=== PATIENT | female | born 1960 | race African-American/Black ===

== ENCOUNTER → 2023-05-30 17:12 | Outpatient (REF) | payer MEDICARE, BC, MEDICAID, SELFPAY | LOC: OLABN 17:12 | PROVIDERS: ATTENDING PHYSICIAN Student in an Organized Health Care Education/Training Program | DX: R52 Pain, unspecified (principal); R05.9 Cough, unspecified | CPT/HCPCS: 87502 ==

== ENCOUNTER 2023-11-25 19:12 | Inpatient (IN) | payer MEDICARE, MEDICAID, SELFPAY ==
[2023-11-25] VITALS (7 sets, daily range): BP systolic 100–130; BP diastolic 72–96
[2023-11-25 14:39] LABS: % Basophils 0.4 % (0-2); % Eosinophils 3.7 % (0-6); % Immature Granulocytes 0.3 % (0-0.5); % Lymphocytes 16.2 % (20.5-51.1); % Monocytes 9.7 % (1.7-9.3); % Neutrophils 69.7 % (42.2-75.2); Absolute Eosinophils 0.3 10^3/uL (0-0.7); Absolute Lymphocytes 1.1 10^3/uL (1.2-3.4); Absolute Monocytes 0.7 10^3/uL (0.1-0.6); Absolute Neutrophils 4.6 10^3/uL (1.4-6.5); Hematocrit 40.1 % (37.0-47.0); Hemoglobin 13.3 g/dL (12.0-16.0); Mean Corp Hgb Conc. 33.2 g/dL (33.0-37.0); Mean Corpuscular Hgb 25.3 pg (27.0-31.0); Mean Corpuscular Volume 76.2 fL (81.0-99.0); Mean Platelet Volume 10.6 fL (7.4-10.4); Nucleated Red Blood Cells % 0 %; Platelet Count 293 10^3/uL (130-400); Red Blood Cell Count 5.26 10^6/uL (4.20-5.40); Red Cell Dist. Width 15.2 % (11.5-14.5); White Blood Cell Count 6.7 10^3/uL (4.8-10.8)
[2023-11-25 14:55] LABS: Lactic Acid 1.4 mmol/L (0.7-2.0)
[2023-11-25 14:57] LABS: ALT (SGPT) 16 U/L (0-35); AST (SGOT) 24 U/L (14-36); Albumin 4.3 g/dl (3.5-5.0); Alkaline Phosphatase 92 U/L (38-126); Blood Urea Nitrogen 14 mg/dl (7-17); Calcium 9.6 mg/dl (8.4-10.2); Carbon Dioxide 24 mmol/L (22-30); Chloride 104 mmol/L (98-107); Glucose 125 mg/dl (70-99); Potassium 4.9 mmol/L (3.5-5.1); Sodium 135 mmol/L (135-145); Total Bilirubin 0.4 mg/dl (0.2-1.3); Total Protein 7.8 g/dl (6.3-8.2); eGFR > 60.00
--- NOTE | 2023-11-25 15:15 | ED.GENMED ---
History of Present Illness
General
Chief Complaint: Change in Mental Status
Source: family
Time Seen by Provider: 11/25/23 15:07
History of Present Illness
History of Present Illness:
63-year-old female presents to the emergency room from [facility]. Patient was noted to have a fever. Family is noted a significant cough for the past week. She has required oxygen at the facility. She is typically not on any
oxygen. Pulse ox noted to be 89% on arrival here. Patient is unable to provide any history. She has multiple sclerosis which is rendered her quadriplegic.
Past History
Past History
ED Past Medical History: Other (Multiple sclerosis, asthma, dysphagia, neurogenic bladder, hearing difficulties, glaucoma)
Social History
Tobacco: Non-smoker
Phy Exam
Physical Exam
Physical Exam:
General: Awake, alert, chronically ill-appearing
Vitals: Febrile, tachycardic
Head: Atraumatic
Eyes: Pupils equal, EOMI
Throat: Airway intact, no exudates
Neck: Trachea midline
Lungs: Rhonchi bilaterally
Heart: Regular rate, no murmurs
Abd: Soft, Nontender, No pulsatile mass
Neuro: Contractures bilateral upper and lower extremities
Skin: Warm, dry, no rash
Extremities: pulses equal b/l, 1+ edema
Course
Orders/Labs/Results
Orders:
Orders
11/25/23 14:17
EKG [Electrocardiogram (*1)] Urgent
Reason for Study: Chest Pain
11/25/23 14:19
EKG- Treatment ONCE
Chest X-ray Portable [CR Chest Portable - 1 View] Urgent
Comment:
Reason For Exam: respiratory
Reason Study Needs to be Portable: Patient Unstable
11/25/23 14:22
Complete Blood Count/With Diff Urgent
Comprehensive Metabolic Panel Urgent
Lactate Level [Lactic Acid] Urgent
11/25/23 15:15
Acetaminophen [Tylenol/Feverall] 650 mg RECTAL NOW STA
11/25/23 15:17
Straight cath- Treatment ONCE
11/25/23 16:17
COVID-19 Antigen Urgent
Source: Nasal Swab
Urinalysis Reflex To Culture Urgent
Date Specimen was Collected: 11/25/23
Time Specimen was Collected: 15:26
Urine Microscopic Reflex Cult Urgent
Urine Culture Urgent
IRENE Source: U
Specimen Description:
Date Specimen was Collected: 11/25/23
Time Specimen was Collected: 15:26
11/25/23 17:45
Dexamethasone Sod Phosphate [Decadron] 6 mg IV NOW STA
11/25/23 18:37
Admit/Transfer Patient As Directed
Co-Sign Provider:
Level of Care: Inpatient admission
Assign to:: Telemetry
Physician / Group: Dr. blair
Diagnosis: COVID-19 infection with hypoxia
Reason for Telemetry: Other
Other Reason for Telemetry: Tachycardia
Date to Stop Telemetry: 11/27/23
Time to Stop Telemetry: 11:00
Reason for Hospitalization: COVID-19 infection with hypoxia
Expected length of stay greater than two midnights?: Yes
ELOS- Estimated Length of Stay in days: 3
I certify the patient meets the requirements for IP care: Yes
PRN Pain Medication Management As Directed
May give lesser potent ordered pain med per pt: Yes
preference::
Protocol:: Medication orders for pain may be administered in a
manner that supports deferring to patient preference
when the pt is:
- Requesting an ordered lesser potent pain medication.
Least to most potent pain medications are defined
as: acetaminophen < NSAID < tramadol < opioids
(morphine, oxycodone, hydromorphone).
- Requesting a lesser dose of the same medication IF
ORDERED.
- Requesting a less intrusive route of administration
if both routes are prescribed by the provider (PO <
IV).
11/25/23 18:39
Code Status As Directed
Resuscitation Status: Full Code
11/27/23 11:00
DC Protocol for Telemetry ONCE
Abnormal Lab Results
11/25/23 11/25/23
14:22 16:17
MCV 76.2 L fL
(81.0-99.0)
MCH 25.3 L pg
(27.0-31.0)
RDW 15.2 H %
(11.5-14.5)
MPV 10.6 H fL
(7.4-10.4)
Absolute Lymphs (auto) 1.1 L 10^3/uL
(1.2-3.4)
Absolute Monos (auto) 0.7 H 10^3/uL
(0.1-0.6)
Lymphocytes % 16.2 L %
(20.5-51.1)
Monocytes % 9.7 H %
(1.7-9.3)
Glucose 125 H mg/dl
(70-99)
Leukocyte Esterase Rfl Trace A
(Negative)
Urine RBC 3-6 A /HPF
(0-2)
Urine WBC (Reflex) 11-15 A /HPF
(0-5)
Urine Bacteria (Reflex) Few A
(Negative)
SARS-CoV-2 Antigen Positive A
(Negative)
11/25/23 14:22
11/25/23 14:22
Vital Signs
Initial and Last Documented VS:
Initial Vital Signs
Temp Pulse Resp BP Pulse Ox
101.1 F H 117 19 124/88 93
11/25/23 14:15 11/25/23 14:15 11/25/23 14:15 11/25/23 14:15 11/25/23 14:15
Last Documented Vital Signs
Temp Pulse Resp BP Pulse Ox
101.0 F H 100 16 108/72 93
11/25/23 19:17 11/25/23 20:30 11/25/23 20:30 11/25/23 20:30 11/25/23 20:30
MDM/Problems Addressed
Differential Diagnosis Includes:
pneumonia (aspiration or community aquired), covid, uti
MDM/Problems Addressed:
Patient presents with fever, hypoxia. Chest x-ray does not show any acute infiltrate. COVID test is positive. Patient was found to be febrile on arrival for which was given Tylenol. Fluid bolus was provided. Nasal cannula oxygen was provided.
Patient's labs show a normal white count, adequate hemoglobin. Chemistries are all unremarkable. Urinalysis has 11-15 white blood spill per high-power field however chemistries show only trace leukocyte esterase and negative nitrates. Not clear
that this is a true infection. I would prefer to wait on the culture before treating this given we have a reasonable explanation for her fever with her positive COVID test.
*Radiology
Radiology exam reviewed: preliminary read by ED provider (Personally viewed the patient's chest x-ray and see no acute infiltrate) and radiology read reviewed
*Pulse Oximetry
Patient hypoxic: yes
*EKG
Interpreted by ED Provider?: Yes
Interpretation: abnormal
Heart Rate: 118
Rate: tachycardiac
Rhythm: sinus tachycardia
Interval: normal interval
QRS Pattern: normal QRS
*Heating Element Builder Interpretation
Rate: tachycardiac
Interpretation: abnormal
Heart Rate: 118
Rhythm: sinus tachycardia
*Critical Care Note
Total Time (30-74mins, 75-104mins- exclusive of procedures): Not Applicable
ED Attending Note
-
Portions of this chart may have been created with voice recognition software.� Occasional wrong word or��sound alike� substitutions may have occurred due to the inherent limitations of voice recognition software.
Discharge Plan
Departure
Patient Disposition: Admit
Date of Disposition: 11/25/23
Time of Disposition: 17:47
Presentation/result/management discussed w/ accepting MD/DO: Hospitalist
Condition: Fair
Discharge Problem:
COVID-19, Hypoxia
Interventions
Interventions:
*Risk Screen - Suicide Last Done: 11/25/23 13:57
*General Assessment Last Done: 11/25/23 13:57
*Neglect/Abuse Screening Last Done: 11/25/23 13:57
ED- Fall Risk Assessment Last Done: 11/25/23 13:57
*ED COVID-19 Vaccine History Last Done: 11/25/23 13:57
ED- Neurological Assessment Last Done: 11/25/23 13:57
ED- Cardiac Assessment Last Done: 11/25/23 13:57
ED Swallowing Screen Last Done: 11/25/23 13:57
[2023-11-25] MEDS: TYLENOL/FEVERALL 650 MG RECTAL ×2 (15:35→20:06)
[2023-11-25 16:41] LABS: COVID-19 Antigen Positive (Negative)
[2023-11-25 17:12] LABS: Urine Albumin Negative (Neg - Trace); Urine Bilirubin Negative (Negative); Urine Character Clear (Clear); Urine Color Yellow; Urine Glucose Negative (Negative); Urine Ketone Negative (Negative); Urine Leukocyte Trace (Negative); Urine Nitrite Negative (Negative); Urine Occult Blood Negative (Negative); Urine Urobilinogen Negative (Neg - 1+)
[2023-11-25 17:37] LABS: Urine Squamous Cell 0-2 /LPF (Few)
[2023-11-25 17:38] LABS: Urine Bacteria Few (Negative)
--- NOTE | 2023-11-25 18:48 | HPS.HSE ---
Family Physician
-
Family Physician: NO INTERVIEW UNKNOWN
Chief Complaint
-
cough, fever, hypoxia
History of Present Illness
Patient is a 63y f with past history of multiple sclerosis living in [facility] who was brought to the ED with decreased spO2 levels (89%), cough and fever for the past few days. Patient is not on oxygen at retirement. In the
ER, spO2 id 92-93% on 2L oxygen. CXR demonstrates no evidence of cardiopulmonary abnormality. Patient is SARS-Cov-2 positive.No abdominal pain, chest pain, change in mental status noted in ER.
Medical History
Past Medical History
Past Medical History: Reports Asthma and Other (Multiple sclerosis, neurogenic bladder, dysphagia, glaucoma, hearing difficulties)
Past Surgical History: Reports None
Social History
Tobacco: Non-smoker
Living: Assisted
Family History
Family History: Not pertinent
Allergies / Home Medications
Allergies reflects when Allergies were last updated in MyCheck.
Home Medications with original date entered in MyCheck
Allergy/Medication List:
Allergies
Allergy/AdvReac Type Severity Reaction Status Date / Time
Penicillins Allergy Hives Verified 04/19/22 13:54
zolpidem [From Ambien] Allergy Unknown Verified 04/19/22 13:54
Home Medications
acetaminophen 325 mg tablet (Tylenol) 650 mg PO Q4HPRN PRN mild pain,fever>100.4 04/19/22
baclofen 10 mg tablet 20 mg PO TID Muscle spasms 04/19/22
bisacodyl 10 mg rectal suppository 10 mg [place] DAILYPRN PRN 3 days no bm, mom ineffective 04/19/22
cholecalciferol (vitamin D3) 1,250 mcg (50,000 unit) capsule 1,250 mcg PO QMONTH Supplement 04/19/22
dorzolamide 22.3 mg-timolol 6.8 mg/mL eye drops 1 drp BOTH EYES BID Eye condition 04/19/22
latanoprost 0.005 % eye drops 1 drp BOTH EYES HS Eye condition 04/19/22
magnesium hydroxide 400 mg/5 mL oral suspension (Milk of Magnesia) 30 ml PO HSPRN PRN constipation 04/19/22
montelukast 10 mg tablet 10 mg PO HS Allergies 04/19/22
apixaban 5 mg tablet (Eliquis) 5 mg PO BID 11/25/23
ipratropium 0.5 mg-albuterol 3 mg (2.5 mg base)/3 mL nebulization soln 3 ml inhalation R Q6HPRN PRN cough/wheezing 11/25/23
pantoprazole 20 mg tablet,delayed release 20 mg PO DAILY 11/25/23
Review of Systems
-
History Source: Family
Constitutional: Reports Fever
EENT: Reports No Symptoms
Respiratory: Reports Cough
Cardiac: Reports No Symptoms
Abdomen/GI: Reports No Symptoms
: Reports No Symptoms
Musculoskeletal: Reports Other (quadriplegic)
Skin: Reports No Symptoms
Neurological: Reports No Symptoms
Endocrine: Reports No Symptoms
Hematologic/Lymphatic: Reports No Symptoms
Psych: Reports No Symptoms
Physical Exam
Vital Signs
Vital Signs
Temp Pulse Resp BP Pulse Ox
101.1 F H 117 19 124/88 93
11/25/23 14:15 11/25/23 14:15 11/25/23 14:15 11/25/23 14:15 11/25/23 14:15
Physical Exam
General: Well Developed, Well Nourished and No Apparent Distress
Respiratory: Clear
Cardiac: S1/S2 and Regular Rhythm
GI: Soft, Non Tender and Non Distended
Musculoskeletal: No Clubbing
Neuro: Awake, Alert and Oriented
Laboratory Results
-
11/25/23 14:22
11/25/23 14:22
Laboratory Results
Lactic Acid 1.4 mmol/L (0.7-2.0) 11/25/23 14:22
Total Bilirubin 0.4 mg/dl (0.2-1.3) 11/25/23 14:22
AST 24 U/L (14-36) 11/25/23 14:22
ALT 16 U/L (0-35) 11/25/23 14:22
Alkaline Phosphatase 92 U/L (38-126) 11/25/23 14:22
Impression/Plan
-
IMPRESSION: 63 y f with MS living in a retirement with COVID-19 infection and hypoxia.
PLAN:
COVID-19 infection with acute hypoxemic respiratory insufficiency
- Oxygen therapy, spO2=92-93% on 2L oxygen
- Start Dexamethasone IV
- NPO
- IVF, NS 100 ml/hr
Cough
- Start Guaifenesin/dextromethorphan
Tachycardia
- Monitor pulse rates
- Telemetry
Multiple sclerosis
- Continue baclofen
Quadriplegia
- Bed sore precautions
Full code
DVT prophylaxis eliquis
--- NOTE | 2023-11-25 18:51 | W.PN.UPDATE ---
Update Note
Progress Note Update
Seen and examined by me independently in collaboration with the chief medical officer Marlen.
Lab data and imaging data reviewed.
Addendum as below :
63-year-old lady with advanced multiple sclerosis with functional quadriplegia currently in a local half-way setting sent in because of fever, cough and hypoxia.
Patient's son at bedside who also provides history. Family had noted congestive cough for a week now. Apparently there is COVID going on in the facility.
Patient with dependent in ADLs and also on modified diet. She understands things follows commands but cannot verbalize much.
Today with fever and cough and hypoxia was sent to the hospital for further evaluation.
Patient has audible cough but no respiratory distress. She is requiring 2 L of oxygen. Tachycardia noted but blood pressure stable.
Chest anteriorly rhonchorous breathing.
Heart sound S1 plus S2 heard regular
Abdomen benign.
Functional quadriplegia evident.
Chest x-ray without any pneumonia.
No white count and creatinine normal.
Moderate COVID-19 infection with hypoxia but no pneumonia. Not septic by criteria. Admit to hospital, started on steroids. Hold on remdesivir until there is any evidence of progression of hypoxia or symptoms.
Advanced multiple sclerosis with functional quadriplegia and dysphagia-with a congestive cough hold oral diet. Keep n.p.o. except for meds. Obtain speech eval.
Patient on anticoagulation with Eliquis-in sinus rhythm and no history of A-fib based on the prior records. Unclear if there is any evidence of thromboembolism. Will continue Eliquis for now and obtain all information.
Discussed with the son at bedside. Full code.
[2023-11-25] MEDS: DECADRON 6 MG IV (19:09)
[2023-11-25 21:48] LABS: Procalcitonin < 0.05 ng/ml (0.0-0.25)
[2023-11-25] MEDS: NSS 1000 IV (21:55)
[2023-11-25] MEDS: XALATAN OPHTHALMIC SOLUTION 1 DROP BOTH EYES (21:59)
[2023-11-25] MEDS: COSOPT EYE DROPS 1 DROP BOTH EYES (21:59)
[2023-11-25] MEDS: LIORESAL 20 MG PO (22:00)
[2023-11-25] MEDS: ELIQUIS 5 MG PO (22:00)
--- NOTE | 2023-11-25 22:00 | PTCARENOTE ---
Received patient from ED. Patient transferred directly to bed from stretcher. Patient assessed and oriented to the unit. VSS. IVF infusing. Patient positioned for comfort.
[2023-11-25] MEDS: SINGULAIR 10 MG PO (22:02)
[2023-11-26] VITALS (7 sets, daily range): BP systolic 95–130; BP diastolic 60–83
[2023-11-26] MEDS: PROTONIX 20 MG PO (08:43)
[2023-11-26] MEDS: DECADRON 6 MG IV (08:43)
[2023-11-26] MEDS: LIORESAL 20 MG PO ×3 (08:43→21:44)
[2023-11-26] MEDS: ELIQUIS 5 MG PO ×2 (08:43→20:27)
[2023-11-26] MEDS: COSOPT EYE DROPS 1 DROP BOTH EYES ×2 (08:44→20:34)
[2023-11-26] MEDS: NSS 1000 IV ×2 (08:45→15:38)
--- NOTE | 2023-11-26 09:53 | W.PN.UPDATE ---
Update Note
Progress Note Update
Seen and examined by me independently in collaboration with the medical assistant Marlen.
Lab data and imaging data reviewed.
Addendum as below :
Patient is much more alert and conversive.
She is oriented to place and person. She says she is not short of breath nor having any chest pain.
Cough is improved. She is requesting oral diet.
Today improved fever curve and in fact afebrile this morning. She is off of oxygen.
Chest clear anteriorly
Abdomen benign.
acute COVID infection with cough with productive phlegm and transient hypoxia. No evidence of pneumonia. Fevers resolved. Hypoxia resolved. Continue with steroids for today as well and if continued improvement consider discontinuing them. No
indication for remdesivir.
Multiple sclerosis with functional paraplegia and dysphagia-await speech eval so she could be started back on diet.
If remains improved from COVID-19 infection today we will discharge her back to her long-term care facility tomorrow.
Reviewed old chart - not finding clear cut indication for Eliquis. Will touch base with family.
DW RN
Total time spent on today's encounter was 52 minutes which included time spent in counseling the patient/family regarding diagnosis and treatment plan as listed above, goals of care, and symptom management. Case was discussed with nursing staff.
All labs and imaging personally reviewed by me. Remainder the time spent in detailed review of previous records, lab data, imaging, and other medical provider documentation.
--- NOTE | 2023-11-26 10:46 | W.PN.HOSP.TC ---
Today's Communication/Plan
-
Continue Dexamethasone
Monitor SpO2
Assessment / Plan
Assessment / Plan
IMPRESSION: 63-year-old female with history of multiple sclerosis living in a long-term facility presenting to the ER with COVID-19 infection and hypoxia. Not febrile.
PLAN:
COVID-19 infection with acute hypoxemic respiratory insufficiency
-Continue IV steroid
-Off oxygen, SpO2 is 96% on room air.
Cough
� Continue guaifenesin/dextromethorphan
Tachycardia
�Now resolved
-Monitor heart rate
Multiple sclerosis
-Baclofen
Full code
DVT prophylaxis Eliquis
Anticipated Discharge: 24 - 48 hours
Subjective/Interval History
-
Date of Service: November 26, 2023
Objective Data
-
Labs:
Laboratory Results
11/26/23
06:00
WBC Pending
Hgb Pending
Hct Pending
Plt Count Pending
Sodium Pending
Potassium Pending
Chloride Pending
Carbon Dioxide Pending
BUN Pending
Creatinine Pending
Glucose Pending
Calcium Pending
Total Bilirubin Pending
AST Pending
ALT Pending
Alkaline Phosphatase Pending
Vital Signs:
Vital Signs
Temp Pulse Resp BP Pulse Ox
97.7 F 69 16 124/73 96
11/26/23 07:25 11/26/23 07:25 11/26/23 07:25 11/26/23 07:25 11/26/23 07:25
I&O
11/25/23 11/26/23 11/27/23
06:59 06:59 06:59
Intake Total 720 / 720
Balance 720 / 720
Review of Systems
-
History Source: Family
Constitutional: Reports No Symptoms
EENT: Reports No Symptoms Reported
Respiratory: Reports Cough (Improved compared to yesterday)
Cardiac: Reports No Symptoms
Abdomen/GI: Reports No Symptoms
Genitourinary: Reports No Symptoms
Musculoskeletal: Reports Other (Quadriplegic)
Skin: Reports No Symptoms
Neuro: Reports No Symptoms
Endocrine: Reports No Symptoms
Physical Exam
-
General: Well Developed, Well Nourished and No Apparent Distress
Respiratory: Clear to Auscultation
Cardiac: Regular Rhythm and S1/S2
GI: Soft, Nontender and Nondistended
Genito-urinary: No Costovertebral Tender
Musculoskeletal: No Clubbing
Neuro: Awake, Alert and Oriented
Psych: Calm
--- NOTE | 2023-11-26 14:18 | PTOTSP ---
Speech therapy
Presentation: Patient was partially oriented and willing to participate.
Swallowing Function: Per patient's son, patient has been tolerating puree solids and nectar thick liquids. Patient was observed with several sips of mildly thick liquids via straw and bites of puree solids in which patient appeared to tolerate as
she did not exhibit any overt clinical s/sx of aspiration.
Recommendations:
1) IDDSI level 4; puree solids and mildly thick liquids
2) Aspiration precautions
3) FULL assistance and supervision with PO
4) Medications as tolerated
Plan: FINANCE INTERN will continue to follow; pending hospitalization.
[2023-11-26 15:11] LABS: % Immature Granulocytes 0.8 % (0-0.5); % Lymphocytes 28.1 % (20.5-51.1); % Monocytes 2.1 % (1.7-9.3); Absolute Lymphocytes 1.1 10^3/uL (1.2-3.4); Absolute Monocytes 0.1 10^3/uL (0.1-0.6); Absolute Neutrophils 2.7 10^3/uL (1.4-6.5); Hematocrit 35.4 % (37.0-47.0); Hemoglobin 11.9 g/dL (12.0-16.0); Mean Corp Hgb Conc. 33.6 g/dL (33.0-37.0); Mean Corpuscular Hgb 25.5 pg (27.0-31.0); Mean Corpuscular Volume 75.8 fL (81.0-99.0); Mean Platelet Volume 10.4 fL (7.4-10.4); Nucleated Red Blood Cells % 0 %; Platelet Count 278 10^3/uL (130-400); Red Blood Cell Count 4.67 10^6/uL (4.20-5.40); Red Cell Dist. Width 15.2 % (11.5-14.5); White Blood Cell Count 3.9 10^3/uL (4.8-10.8)
[2023-11-26 15:15] LABS: ALT (SGPT) 14 U/L (0-35); AST (SGOT) 20 U/L (14-36); Albumin 3.8 g/dl (3.5-5.0); Alkaline Phosphatase 82 U/L (38-126); Blood Urea Nitrogen 15 mg/dl (7-17); Calcium 9.4 mg/dl (8.4-10.2); Carbon Dioxide 21 mmol/L (22-30); Chloride 108 mmol/L (98-107); Glucose 175 mg/dl (70-99); Magnesium 1.9 mg/dl (1.6-2.3); Potassium 4.2 mmol/L (3.5-5.1); Sodium 136 mmol/L (135-145); Total Bilirubin 0.2 mg/dl (0.2-1.3); eGFR > 60.00
[2023-11-26] MEDS: SINGULAIR 10 MG PO (21:44)
[2023-11-26] MEDS: XALATAN OPHTHALMIC SOLUTION 1 DROP BOTH EYES (21:45)
[2023-11-27] MEDS: NSS 1000 IV (02:25)
[2023-11-27 03:24] VITALS: BP 139/90
[2023-11-27 07:25] VITALS: BP 140/86
[2023-11-27 09:05] LABS: % Immature Granulocytes 0.3 % (0-0.5); % Lymphocytes 34.6 % (20.5-51.1); % Neutrophils 56.1 % (42.2-75.2); Absolute Lymphocytes 2.2 10^3/uL (1.2-3.4); Absolute Monocytes 0.6 10^3/uL (0.1-0.6); Absolute Neutrophils 3.6 10^3/uL (1.4-6.5); Hematocrit 33.4 % (37.0-47.0); Hemoglobin 11.2 g/dL (12.0-16.0); Mean Corp Hgb Conc. 33.5 g/dL (33.0-37.0); Mean Corpuscular Hgb 25.5 pg (27.0-31.0); Mean Corpuscular Volume 75.9 fL (81.0-99.0); Mean Platelet Volume 9.9 fL (7.4-10.4); Nucleated Red Blood Cells % 0 %; Platelet Count 242 10^3/uL (130-400); Red Cell Dist. Width 15.4 % (11.5-14.5); White Blood Cell Count 6.5 10^3/uL (4.8-10.8)
[2023-11-27 09:12] LABS: Blood Urea Nitrogen 14 mg/dl (7-17); Carbon Dioxide 24 mmol/L (22-30); Chloride 111 mmol/L (98-107); Glucose 95 mg/dl (70-99); Potassium 3.7 mmol/L (3.5-5.1); Sodium 138 mmol/L (135-145); eGFR > 60.00
[2023-11-27] MEDS: ELIQUIS 5 MG PO (10:01)
[2023-11-27] MEDS: LIORESAL 20 MG PO (10:01)
[2023-11-27] MEDS: DECADRON 6 MG IV (10:01)
[2023-11-27] MEDS: PROTONIX 20 MG PO (10:01)
[2023-11-27] MEDS: COSOPT EYE DROPS BOTH EYES (10:20)
--- NOTE | 2023-11-27 10:27 | W.PN.HOSP.TC ---
Today's Communication/Plan
-
Stable for discharge to [facility]
Hold dexamethasone -no pneumonia, patient off oxygen with SpO2 98% on room air
Continue home meds
Assessment / Plan
Assessment / Plan
IMPRESSION: 63-year-old female with history of multiple sclerosis living in a [facility] presenting to the ER with COVID-19 infection and hypoxia. Not febrile. Patient stable for discharge to [facility].
PLAN:
COVID-19 infection with acute hypoxemic respiratory insufficiency
-Continue IV steroid
-Off oxygen, SpO2 is 98% on room air.
Urinary tract infection
-U/C- strep, not Enterococcus
-Asymptomatic bacteriuria, antibiotics not indicated
Cough
�Continue guaifenesin/dextromethorphan
-Now resolved
Tachycardia
�Now resolved
-Monitor heart rate
Multiple sclerosis
-Baclofen
Full code
DVT prophylaxis Eliquis
Anticipated Discharge: Today
Subjective/Interval History
-
Date of Service: November 27, 2023
Objective Data
-
Labs:
Laboratory Results
11/27/23
08:51
WBC 6.5
Hgb 11.2 L
Hct 33.4 L
Plt Count 242
Sodium 138
Potassium 3.7
Chloride 111 H
Carbon Dioxide 24
BUN 14
Creatinine 0.6
Glucose 95
Calcium 9.0
Vital Signs:
Vital Signs
Temp Pulse Resp BP Pulse Ox
97.5 F 68 18 140/86 96
11/27/23 07:25 11/27/23 07:25 11/27/23 07:25 11/27/23 07:25 11/27/23 07:25
I&O
11/26/23 11/27/23 11/28/23
06:59 06:59 06:59
Intake Total 720 / 720 2640 / 2640
Balance 720 / 720 2640 / 2640
Review of Systems
-
History Source: Family
Constitutional: Reports No Symptoms
EENT: Reports No Symptoms Reported
Respiratory: Reports Cough (Improved compared to yesterday)
Cardiac: Reports No Symptoms
Abdomen/GI: Reports No Symptoms
Genitourinary: Reports No Symptoms
Musculoskeletal: Reports Other (Quadriplegic)
Skin: Reports No Symptoms
Neuro: Reports No Symptoms
Endocrine: Reports No Symptoms
Physical Exam
-
General: Well Developed, Well Nourished and No Apparent Distress
Respiratory: Clear to Auscultation
Cardiac: Regular Rhythm and S1/S2
GI: Soft, Nontender and Nondistended
Genito-urinary: No Costovertebral Tender
Musculoskeletal: No Clubbing
Neuro: Awake, Alert and Oriented
Psych: Calm
[2023-11-27 11:05] VITALS: BP 153/82
--- NOTE | 2023-11-27 11:21 | W.DCSUMMARY ---
Discharge Summary
Discharge Data
Date of Admission: 11/25/23
Date of Discharge: 11/27/23
Total time spent discharging patient (in min): 32
-
Pending Results: No
Hospital Course
Primary diagnosis:
COVID-19 infection
Acute hypoxemic respiratory insufficiency
Tachycardia
Second diagnosis:
Multiple sclerosis
Functional quadriplegia
63-year-old female with past history of multiple sclerosis rendering quadriplegia living in [facility] who was brought to the ER with cough, fever, hypoxia (SpO2 89% on room). COVID-positive. Was initially febrile, tachycardic,
hypoxemic but did not meet criteria for sepsis in the ER. Started on 2 L of oxygen SpO2 increased to 93% and oxygen was weaned off the following day. Now SpO2 level is 98% on room air. Chest x-ray was negative for pneumonia. IV dexamethasone was
administered for 2 days. Given patient's hemodynamic stability and no signs of severe COVID, held steroids. Patient was on Eliquis prior to admission (indication unclear according to her documents).
Patient is medically stable to be discharged to nursing facility with home meds. No change in home meds were made.
Discharge Plan
-
Patient Disposition: Intermediate/SNF
Discharge Diagnosis/Procedures: COVID infection with acute hypoxemic respiratory insufficiency; no pneumonia. multiple sclerosis
Condition: Fair
Diet: As tolerated
Additional Diets: IDDSI4 and pureed
Activity: As tolerated
Driving Restrictions: No driving
Bathing Restrictions: None
Referrals:
UNKNOWN,NO INTERVIEW [Family Provider] -
Prescriptions:
Continued
latanoprost 0.005 % Drops
1 drp BOTH EYES HS
acetaminophen [Tylenol] 325 mg Tablet
650 mg PO Q4HPRN MDD 3000 mg PRN (Reason: mild pain,fever>100.4)
magnesium hydroxide [Milk of Magnesia] 400 mg/5 mL Suspension
30 ml PO HSPRN PRN (Reason: constipation)
baclofen 10 mg Tablet
20 mg PO TID
bisacodyl 10 mg Suppository
10 mg [place] DAILYPRN PRN (Reason: 3 days no bm, mom ineffective)
dorzolamide-timolol 22.3-6.8 mg/mL Drops
1 drp BOTH EYES BID
montelukast 10 mg Tablet
10 mg PO HS
cholecalciferol (vitamin D3) 1,250 mcg (50,000 unit) capsule
1,250 mcg PO QMONTH
Rx Instructions:
on tuesday of the month
ipratropium-albuterol 0.5 mg-3 mg(2.5 mg base)/3 mL Solution For Nebulization
3 ml INHALATION R Q6HPRN PRN (Reason: cough/wheezing)
pantoprazole 20 mg Tablet,Delayed Release (Dr/Ec)
20 mg PO DAILY
Eliquis 5 mg Tablet
5 mg PO BID
Discharge Orders:
Discharge Patient (As Directed); Ordered 11/27/23
Ordered By: Marlen Simmons
Discharge Date and Time
Print Language: BRITISH
--- NOTE | 2023-11-27 12:56 | W.PN.UPDATE ---
Update Note
Progress Note Update
Seen and examined by me independently in collaboration with the medical coding manager.
Lab data data reviewed.
Addendum as below :
Patient is alert and oriented and communicative.
Voicing no specific complaints.
Denies any sore throat. Improved cough. Denies shortness of breath. Off of oxygen.
Denies any nausea or vomiting. Does not like the food here. Patient restarted on modified diet after seen by speech therapist.
Denies any dysuria frequency of urine.
Afebrile. Hemodynamically stable. Remains off of oxygen.
Chest anteriorly clear. Abdomen benign.
Lab data noted. Urine culture shows pyuria and nonsignificant bacteriuria. Patient also has no symptoms of dysuria or frequency of urine. Suspect contamination rather than true UTI. Hold on antibiotics.
Improved clinically from COVID-19 infection with resolution of fever and hypoxia. Hold further steroid treatments. Continue with supportive care and her usual medication. Continue with modified diet.
Left message to her son about discharge and left a call back number.
Total time of dc 35 min
--- NOTE | 2023-11-27 13:11 | CM ---
CM reviewed pt with resident/ Dr. Simmons- ready for dc
Call with [facility] nursing truong/Russell [phone]
Pt is a LTC resident, total care, bedbound quadriplegic
Pt COVID+ and accepted back for readmission today
SNF pharmacy added to chart [facility]
Transport form completed
[facility] arranged 1530 pick up operator
CM attempted to call pt in room
No answer- nursing will provide dc update and alert CM if pt would like CM to notify son of dc
Discharge Disposition- return [facility] LT care/[facility] 1530 pick
Phone- [phone] Fax- [phone]
Please include COVID results with dc paperwork
[2023-11-27 15:32] VITALS: BP 105/76
[2023-11-29 16:30] LABS: IL-6 (Interleukin-6) <2.0 pg/mL (<=2.0)
== END 2023-11-27 17:06 | DRG 177 ==
LOC: 2 NORTH 19:12
PROVIDERS: Emergency Medicine; ADMITTING PHYSICIAN Internal Medicine; EMERGENCY PHYSICIAN Emergency Medicine
DX: U07.1 COVID-19 (principal); R53.2 Functional quadriplegia; R41.82 Altered mental status, unspecified; R50.9 Fever, unspecified; G35 Multiple sclerosis; H40.9 Unspecified glaucoma; N31.9 Neuromuscular dysfunction of bladder, unspecified; R13.10 Dysphagia, unspecified; J45.909 Unspecified asthma, uncomplicated; R09.02 Hypoxemia; R06.89 Other abnormalities of breathing; R00.0 Tachycardia, unspecified; Z88.0 Allergy status to penicillin; Z88.8 Allergy status to other drugs, medicaments and biological substances; Z79.01 Long term (current) use of anticoagulants
CPT/HCPCS: 71045; 80048; 80053; 81003; 81015; 83529; 83605; 83735; 84145; 85025; 86140; 87070; 87086; 87811; 92610; 93005; 96374; 99285

== ENCOUNTER 2024-01-06 17:54 | Inpatient (IN) | payer MEDICARE, OTHER, SELFPAY ==
[2024-01-06] VITALS (9 sets, daily range): BP systolic 96–151; BP diastolic 62–114; BMI 28.7
--- NOTE | 2024-01-06 14:05 | EDRN ---
IV team contacted and will be down to attempt access and blood draw.
Blankets placed on b/l arms to warm limbs.
[2024-01-06 14:39] LABS: Hematocrit 35.9 % (37.0-47.0); Hemoglobin 11.7 g/dL (12.0-16.0); Mean Corp Hgb Conc. 32.6 g/dL (33.0-37.0); Mean Corpuscular Hgb 24.9 pg (27.0-31.0); Mean Corpuscular Volume 76.5 fL (81.0-99.0); Mean Platelet Volume 9.9 fL (7.4-10.4); Platelet Count 278 10^3/uL (130-400); Red Blood Cell Count 4.69 10^6/uL (4.20-5.40); Red Cell Dist. Width 15.9 % (11.5-14.5); White Blood Cell Count 6.5 10^3/uL (4.8-10.8)
[2024-01-06 14:51] LABS: % Basophils 0.5 % (0-2); % Eosinophils 8.4 % (0-6); % Immature Granulocytes 0.3 % (0-0.5); % Lymphocytes 52.1 % (20.5-51.1); % Monocytes 7.1 % (1.7-9.3); % Neutrophils 31.6 % (42.2-75.2); Absolute Eosinophils 0.6 10^3/uL (0-0.7); Absolute Lymphocytes 3.4 10^3/uL (1.2-3.4); Absolute Monocytes 0.5 10^3/uL (0.1-0.6); Absolute Neutrophils 2.1 10^3/uL (1.4-6.5); Nucleated Red Blood Cells % 0 %
[2024-01-06 14:56] LABS: ALT (SGPT) 14 U/L (0-35); AST (SGOT) 20 U/L (14-36); Albumin 3.9 g/dl (3.5-5.0); Alkaline Phosphatase 92 U/L (38-126); Blood Urea Nitrogen 11 mg/dl (7-17); Calcium 9.4 mg/dl (8.4-10.2); Carbon Dioxide 21 mmol/L (22-30); Chloride 105 mmol/L (98-107); Glucose 93 mg/dl (70-99); Potassium 4.6 mmol/L (3.5-5.1); Sodium 140 mmol/L (135-145); Total Bilirubin 0.3 mg/dl (0.2-1.3); Total Protein 7.2 g/dl (6.3-8.2); eGFR > 60.00
--- NOTE | 2024-01-06 15:13 | ED.GENMED ---
History of Present Illness
General
Chief Complaint: Eye Problems
Source: patient, records, ambulance crew and detention
Exam Limitations: none
Time Seen by Provider: 01/06/24 13:32
Nursing documentation reviewed up to this point in time: agreed with
History of Present Illness
History of Present Illness:
63-year-old female with past medical history of MS, quadriplegia, neurogenic bladder who presents from [facility] for evaluation of right eye redness and swelling. Patient says that her eye has been bothering her 'for a while.'
She is not really sure how long. She denies any trauma. According to detention staff patient developed a stye on her right eye about a week ago; about 2 days later they noticed some conjunctival injection and she was started on polymyxin
eyedrops which she has been on for the past 5 days but symptoms have not improved and in fact today got much worse today she woke up and they noticed significant redness and swelling of the right periorbital region and so she was sent to the ER for
evaluation. No fevers or chills. No trauma reported.
Past History
Past History
ED Past Medical History: Other (Multiple sclerosis, asthma, dysphagia, neurogenic bladder, hearing difficulties, glaucoma)
Social History
Tobacco: Non-smoker
Review of Systems
Review of Systems
All Other Systems: ROS reviewed and negative except as documented in HPI and ROS
Constitutional: Denies fever
EENT: Reports other (Eye swelling and pain)
Respiratory: Denies trouble breathing
Cardiac: Denies chest pain
ABD/GI: Denies abdominal pain
: Denies flank pain
Musculoskeletal: Denies neck pain or back pain
Neurological: Denies headache
Phy Exam
Physical Exam
Physical Exam:
General: Awake, alert, chronically ill-appearing
Head: Normocephalic, atraumatic
Eyes: Conjunctival injection, no hyphema, no hypopyon, pupils equal round and reactive to light bilaterally; patient has marked right periorbital edema, erythematous skin with warmth and induration, honey crusted appearance; some slight serous
drainage from the corner of the eye; extraocular movements are intact
Throat: Airway intact, handling secretions
Neck: Trachea midline
Lungs: Clear to auscultation bilaterally, no wheezing, rales, rhonchi
Heart: Regular rate and rhythm, no murmurs, gallops, or rubs
Abd: Soft, non distended, nontender
Extremities: Warm and well-perfused
Scores
Heart Failure Risk
Heart Failure Risk Score: Not Applicable
Heart Score for Chest Pain Patients
STEMI patient?: Not applicable
Withdrawal Assessment of Alcohol
Withdrawal Assessment Completed?: Not applicable
Course
Orders/Labs/Results
Orders:
Orders
01/06/24 13:57
CT Orbits With Iv Contrast Urgent
Comment:
Reason For Exam: right eye pain and swelling
01/06/24 14:22
Complete Blood Count/With Diff Urgent
Comprehensive Metabolic Panel Urgent
01/06/24 17:18
CefTRIAXone [Rocephin] 1,000 mg IV NOW STA
Vancomycin [Vancocin] 1,500 mg 0.9% Sodium Chloride [Nss] 20 ml 0.9% Sodium Chloride 250 ml [Nss] 250 ml IV NOW
Abnormal Lab Results
01/06/24
14:22
Hgb 11.7 L g/dL
(12.0-16.0)
Hct 35.9 L %
(37.0-47.0)
MCV 76.5 L fL
(81.0-99.0)
MCH 24.9 L pg
(27.0-31.0)
MCHC 32.6 L g/dL
(33.0-37.0)
RDW 15.9 H %
(11.5-14.5)
Neutrophils % 31.6 L %
(42.2-75.2)
Lymphocytes % 52.1 H %
(20.5-51.1)
Eosinophils % 8.4 H %
(0-6)
Carbon Dioxide 21 L mmol/L
(22-30)
Creatinine 0.5 L mg/dL
(0.6-1.0)
01/06/24 14:22
01/06/24 14:22
Vital Signs
Initial and Last Documented VS:
Initial Vital Signs
Temp Pulse Resp BP Pulse Ox
37.3 C 67 16 130/69 99
01/06/24 12:26 01/06/24 12:26 01/06/24 12:26 01/06/24 12:26 01/06/24 12:26
Last Documented Vital Signs
Temp Pulse Resp BP Pulse Ox
37.3 C 63 14 115/79 94
01/06/24 12:26 01/06/24 15:30 01/06/24 15:30 01/06/24 15:00 01/06/24 15:30
MDM/Problems Addressed
Differential Diagnosis Includes:
Periorbital cellulitis, orbital cellulitis, allergic dermatitis
MDM/Problems Addressed:
63-year-old female presents for evaluation of right eye redness and swelling�started with a stye and some conjunctival injection not improving with polymyxin drops and this morning increasing swelling and redness. Vital signs normal. Exam as
above. Check basic labs. My clinical impression is that patient has severe periorbital/preseptal cellulitis. Will check CT of the orbits to rule out orbital cellulitis. Reassess after the above.
Labs reviewed: CBC marginal anemia, CMP no clinically significant abnormalities. CT orbits pending. Given extent and rapid progression we will plan to cover with IV antibiotics and admit for close monitoring.
Chronic conditions affecting care:
MS and quadriplegia
*Radiology
Radiology exam reviewed: radiology read reviewed
*Pulse Oximetry
Patient hypoxic: no
*Critical Care Note
Total Time (30-74mins, 75-104mins- exclusive of procedures): Not Applicable
Data Reviewed
Source: patient, records, ambulance crew and detention
Patient Management
Discussion with other providers: shelter staff (Discussed directly with detention staff)
ED Attending Note
-
Portions of this chart may have been created with voice recognition software.� Occasional wrong word or��sound alike� substitutions may have occurred due to the inherent limitations of voice recognition software.
Discharge Plan
Departure
Patient Disposition: Admit
Date of Disposition: 01/06/24
Time of Disposition: 17:22
Admit to doctor: Vivi
Presentation/result/management discussed w/ accepting MD/DO: Hospitalist
Discharge Problem:
Orbital cellulitis
Prescriptions:
No Action
latanoprost 0.005 % Drops
1 drp BOTH EYES HS
acetaminophen [Tylenol] 325 mg Tablet
650 mg PO Q4HPRN MDD 3000 mg PRN (Reason: mild pain,fever>100.4)
magnesium hydroxide [Milk of Magnesia] 400 mg/5 mL Suspension
30 ml PO HSPRN PRN (Reason: constipation)
baclofen 10 mg Tablet
20 mg PO TID
bisacodyl 10 mg Suppository
10 mg MD DAILYPRN PRN (Reason: 3 days no bm, mom ineffective)
dorzolamide-timolol 22.3-6.8 mg/mL Drops
1 drp BOTH EYES BID
montelukast 10 mg Tablet
10 mg PO HS
cholecalciferol (vitamin D3) 1,250 mcg (50,000 unit) capsule
1,250 mcg PO QMONTH
Rx Instructions:
on tuesday of the month
ipratropium-albuterol 0.5 mg-3 mg(2.5 mg base)/3 mL Solution For Nebulization
3 ml INHALATION R Q6HPRN PRN (Reason: cough/wheezing)
pantoprazole 20 mg Tablet,Delayed Release (Dr/Ec)
20 mg PO DAILY
Eliquis 5 mg Tablet
5 mg PO BID
Referrals:
Josh Romo DO [Family Provider] -
Interventions
Interventions:
*Risk Screen - Suicide Last Done: 01/06/24 12:26
*General Assessment Last Done: 01/06/24 12:26
*Neglect/Abuse Screening Last Done: 01/06/24 12:26
ED- Fall Risk Assessment Last Done: 01/06/24 12:26
Discharge Date and Time
Print Language: AUSTRIAN
--- NOTE | 2024-01-06 17:51 | HPS.HSE ---
Family Physician
-
Family Physician: Josh Romo DO
Chief Complaint
-
eye swelling and pain
History of Present Illness
63-year-old female past medical history of multiple sclerosis, quadriplegia, neurogenic bladder, glaucoma, presenting from [facility] for right eye redness and swelling. She is not sure how long the right eye has been bothering her. She
denies trauma. She developed a stye in her right eye a week ago and 2 days later they noticed conjunctival injection and she was started on polymyxin eyedrops which she has been on for 5 days but symptoms have not improved and in fact got worse.
She denies fevers or chills.
Medical History
Past Medical History
Past Medical History: Reports Other (multiple sclerosis, quadriplegia, neurogenic bladder, glaucoma)
Past Surgical History: Reports None
Social History
Tobacco: Non-smoker
Alcohol: None
Drug: None
Family History
Family History: Not pertinent
Allergies / Home Medications
Allergies reflects when Allergies were last updated in [facility].
Home Medications with original date entered in [facility]
Allergy/Medication List:
Allergies
Allergy/AdvReac Type Severity Reaction Status Date / Time
Penicillins Allergy Hives Verified 01/06/24 12:33
zolpidem [From Ambien] Allergy Unknown Verified 01/06/24 12:33
Home Medications
acetaminophen 325 mg tablet (Tylenol) 650 mg PO Q4HPRN PRN mild pain,fever>100.4 04/19/22
baclofen 10 mg tablet 20 mg PO TID Muscle spasms 04/19/22
bisacodyl 10 mg rectal suppository 10 mg [place] DAILYPRN PRN 3 days no bm, mom ineffective 04/19/22
cholecalciferol (vitamin D3) 1,250 mcg (50,000 unit) capsule 1,250 mcg PO QMONTH Supplement 04/19/22
dorzolamide 22.3 mg-timolol 6.8 mg/mL eye drops 1 drp BOTH EYES BID Eye condition 04/19/22
latanoprost 0.005 % eye drops 1 drp BOTH EYES HS Eye condition 04/19/22
magnesium hydroxide 400 mg/5 mL oral suspension (Milk of Magnesia) 30 ml PO HSPRN PRN constipation 04/19/22
montelukast 10 mg tablet 10 mg PO HS Allergies 04/19/22
apixaban 5 mg tablet (Eliquis) 5 mg PO BID Blood Clot Prevention/Tx 11/25/23
ipratropium 0.5 mg-albuterol 3 mg (2.5 mg base)/3 mL nebulization soln 3 ml inhalation R Q6HPRN PRN cough/wheezing 11/25/23
pantoprazole 20 mg tablet,delayed release 20 mg PO DAILY GERD 11/25/23
Review of Systems
-
History Source: Patient
A 12 point ROS was completed and negative except as noted: Yes
Constitutional: Reports No Symptoms
EENT: Reports See HPI
Respiratory: Reports No Symptoms
Cardiac: Reports No Symptoms
Abdomen/GI: Reports No Symptoms
: Reports No Symptoms
Musculoskeletal: Reports No Symptoms
Skin: Reports No Symptoms
Neurological: Reports No Symptoms
Endocrine: Reports No Symptoms
Hematologic/Lymphatic: Reports No Symptoms
Psych: Reports No Symptoms
Physical Exam
Vital Signs
Vital Signs
Temp Pulse Resp BP Pulse Ox
99.2 F 63 14 115/79 94
01/06/24 12:26 01/06/24 15:30 01/06/24 15:30 01/06/24 15:00 01/06/24 15:30
Physical Exam
General: Well Developed, Well Nourished and No Apparent Distress
HEENT: NormoCephalic, Moist mucous membranes and Atraumatic
Respiratory: Clear
Cardiac: S1/S2 and Regular Rhythm; No Murmur or Rub
GI: Soft, Non Tender, Non Distended and Normal Bowel Sounds; No Organomegaly
Rectal: Deferred by Provider
Musculoskeletal: No Clubbing, No Cyanosis and No Edema
Skin: No Rash
Neuro: Nonfocal/grossly intact
Laboratory Results
-
01/06/24 14:22
01/06/24 14:22
Laboratory Results
Total Bilirubin 0.3 mg/dl (0.2-1.3) 01/06/24 14:22
AST 20 U/L (14-36) 01/06/24 14:22
ALT 14 U/L (0-35) 01/06/24 14:22
Alkaline Phosphatase 92 U/L (38-126) 01/06/24 14:22
Data Reviewed
-
Lab Data: Labs Reviewed by me
Old Records: Reviewed
Impression/Plan
-
IMPRESSION:
PLAN:
# Right eye preseptal cellulitis
-CT head/orbit shows right preseptal periorbital inflammation most compatible with cellulitis, paranasal sinus mucosal disease/sinusitis
-Vancomycin/ceftriaxone
-IV fluids
-Consult ophthalmology if no improvement by tomorrow
Multiple sclerosis
-Continue baclofen
Quadriplegia
-Hold Eliquis for DVT prophylaxis and instead use heparin for now
Neurogenic bladder
Seasonal allergies
-Continue montelukast
-Continue ipratropium inhaler
Glaucoma
-Continue eyedrops
Bilateral deafness
Full code
DVT prophylaxis�heparin
Regular diet
[2024-01-06] MEDS: ROCEPHIN 1000 MG IV (17:52)
[2024-01-06] MEDS: VANCOCIN 300 MG IV (18:05)
[2024-01-06] MEDS: VANCOCIN 300 ML IV (18:05)
--- NOTE | 2024-01-06 20:35 | PHA.VAN.IN ---
Assessment
- Assessment
Renal Function: Appears similar to baseline
Concomitant Antimicrobials: ROCEPHIN
- Previous Dosing Experience
Previous Regimen: 500MG IV Q12H
Date of Regimen: 04/20/22
Provided Trough of: 12.1 PREDICTED
Provided AUC of: 411 PREDICTED
Patient's SCR is: Similar to previous dosing experience
Patient's weight is: Elevated compared to previous dosing experience (04/20/22 WT = 60.4 KG)
AUC Dosing Plan
- Dosing Variables
Dosing Weight (kg): 58.9
Dosing CrCl (ml/min): 84
Vd coefficient (L/kg): 0.7
- Empiric Dosing
Initial / Loading Dose: 1500MG
Maintenance Regimen: 750MG IV Q12H
Estimated AUC (mcg*h/mL): 435
Estimated Peak (mcg*h/mL): 26.4
Estimated Trough (mcg/ml): 11.7
Estimated Half Life (H): 9.3
Pharmacokinetics Vancomycin I
- -
Patient Age: 63
Patient Sex: Female
Vancomycin Day #: 1
Indication: Skin And Soft Tissue ([R] EYE PRE-SEPTAL CELLULITIS)
Requesting Provider: ОЛЕГ
Height / Weight:
Height 5 ft 1 in
Actual Weight 68.901 kg
- Vital Signs / Lab Results
Temp Pulse Resp BP Pulse Ox
98.3 F 102 22 151/114 98
01/06/24 19:56 01/06/24 19:56 01/06/24 19:56 01/06/24 19:56 01/06/24 19:56
Lab Results - Hematology
01/06/24
14:22
WBC 6.5
Lab Results - Chemistry
01/06/24
14:22
BUN 11
Creatinine 0.5 L
Albumin 3.9
[2024-01-06] MEDS: NSS 1000 IV (20:39)
[2024-01-06] MEDS: HEPARIN 5000 UNITS SC (20:39)
[2024-01-07] MEDS: VANCOCIN 150 IV ×2 (07:25→17:16)
[2024-01-07] MEDS: NSS 1000 IV (07:26)
--- NOTE | 2024-01-07 07:27 | W.PN.HOSP.TC ---
Today's Communication/Plan
-
cont abx as per ID
resume home pureed diet
Assessment / Plan
Assessment / Plan
Physical Exam
General: Well Developed, Well Nourished and No Apparent Distress
HEENT: NormoCephalic, Moist mucous membranes and Atraumatic
Respiratory: Clear
Cardiac: S1/S2 and Regular Rhythm; No Murmur or Rub
GI: Soft, Non Tender, Non Distended and Normal Bowel Sounds; No Organomegaly
Rectal: Deferred by Provider
Musculoskeletal: No Clubbing, No Cyanosis and No Edema
Skin: No Rash
Neuro: AOx2 disoriented to time
63F multiple sclerosis, quadriplegia, neurogenic bladder, glaucoma, presented from [facility] for right eye redness and swelling. Developed a stye in her right eye a week ago and 2 days later they noticed conjunctival injection and she was
started on polymyxin eyedrops which she has been on for 5 days but symptoms have not improved and in fact got worse
# Right eye preseptal cellulitis
-CT head/orbit shows right preseptal periorbital inflammation most compatible with cellulitis, paranasal sinus mucosal disease/sinusitis
-Vancomycin/ceftriaxone
-IV fluids
-ID eval appreciated
Multiple sclerosis
-Continue baclofen
Quadriplegia
-Hold Eliquis for DVT prophylaxis and instead use heparin for now
Neurogenic bladder
Seasonal allergies
-Continue montelukast
-Continue ipratropium inhaler
Glaucoma
-Continue eyedrops
Full code
DVT prophylaxis�heparin
Regular diet
Discussed with patient and son Matty
I spent a total of 50 minutes with the patient or on the floor. More than 50% of this time involved counseling and coordination of care.
Anticipated Discharge: > 48 hours
Subjective/Interval History
-
Date of Service: January 07, 2024
No acute distress resting comfortably in bed. Reports some improvement in right eye swelling. Remains significantly swollen tender. Patient unable to open her eye.
Objective Data
-
Labs:
Laboratory Results
01/07/24
06:00
WBC Pending
Hgb Pending
Hct Pending
Plt Count Pending
Sodium Pending
Potassium Pending
Chloride Pending
Carbon Dioxide Pending
BUN Pending
Creatinine Pending
Glucose Pending
Calcium Pending
Total Bilirubin Pending
AST Pending
ALT Pending
Alkaline Phosphatase Pending
Vital Signs:
Vital Signs
Temp Pulse Resp BP Pulse Ox
97.9 F 78 18 149/95 98
01/06/24 23:55 01/06/24 23:55 01/06/24 23:55 01/06/24 23:55 01/06/24 23:55
[2024-01-07 07:35] VITALS: BP 174/107
[2024-01-07] MEDS: LIORESAL 20 MG PO ×2 (07:41→15:57)
[2024-01-07] MEDS: COSOPT EYE DROPS 1 DROP BOTH EYES (07:41)
[2024-01-07] MEDS: HEPARIN 5000 UNITS SC (07:41)
[2024-01-07] MEDS: PROTONIX 20 MG PO (07:41)
--- NOTE | 2024-01-07 09:16 | PHA.VAN.FU ---
Vancomycin Assessment / Plan
- Assessment
Renal Function: Stable
WBC's are: WNL
In the past 24 hrs, patient has been: Afebrile
Concomitant Antimicrobials: ceftriaxone
- Dosing Plan
Continue: vancomycin 750 mg q12h - first dose 0600 01/06
- Monitoring Plan
No level(s) ordered at this time: consider levels after 4th maint dose Tuesday emma
- Follow Up
Pharmacy will continue to follow.
Vancomycin Follow UP
- -
Patient Age: 63
Patient Sex: Female
Vancomycin Day #: 2
Indication: Skin And Soft Tissue ([R] EYE PRE-SEPTAL CELLULITIS)
Requesting Provider: ОЛЕГ
Height / Weight:
Height 5 ft 1 in
Actual Weight 68.901 kg
Pertinent Past Medical History: multiple sclerosis; quadriplegia
- Vital Signs / Lab Results
Temp Pulse Resp BP Pulse Ox
98.2 F 81 17 174/107 97
01/07/24 07:35 01/07/24 07:35 01/07/24 07:35 01/07/24 07:35 01/07/24 07:35
Lab Results - Hematology
01/06/24
14:22
WBC 6.5
Lab Results - Chemistry
01/06/24
14:22
BUN 11
Creatinine 0.5 L
Albumin 3.9
--- NOTE | 2024-01-07 14:16 | CON.ID ---
Consultation
-
Date/Time Consultation Requested: January 07, 2024 3237
Date/Time Consultation Performed: January 07, 2024 1415
Requesting Provider: Dr. Vicente Law
Performing Provider: Dr. Audelia Cortez
Reason for Consultation: Sheri-orbital cellulitis
Chief Complaint / Past History
Chief Complaint
Facial swelling
History of Present Illness
63-year-old female with history of multiple sclerosis, quadriplegia who presented from [facility] with right periorbital swelling. Last week, she was noted to have right conjunctivitis and she was placed on polymyxin eyedrops with worsening
symptoms on day 5. She developed periorbital worsening edema and areas CALVIN. She was sent to the hospital yesterday. CT of the head showed preseptal cellulitis and left greater than right sinusitis. Patient denies sinus congestion or pain.
Denies decreased vision. No significant pain. No headache. No fevers or chills.
Past History
Additional Past Medical History:
Multiple sclerosis
Quadriplegia
Dysphagia
Neurogenic bladder
Asthma
COVID 19 (11/25/23)
Allergy History:
Penicillins Allergy (Verified 01/06/24 12:33)
Hives
zolpidem [From Ambien] Allergy (Verified 01/06/24 12:33)
Unknown
Medications Reviewed: Yes
Current Antibiotics:
Vancomycin
ceftriaxone
Social History
Tobacco: Non-Smoker
Alcohol: None
Drug: None
Living: Snf ([facility])
Family History
Family History: Not Pertinent
Review of Systems
Review of Systems
General: Negative Fever, Chills or Change in Appetite
HEENT: Negative Sinus Problems, Headache or Pharyngitis
Cardiovascular: Negative Chest Pain or Dyspnea
Respiratory: Negative Dyspnea or Cough
Gasteroenterology: Negative Nausea or Vomiting
Genital / Urological: Negative Dysuria
Neurological: Negative Dizziness
All systems: All other systems were reviewed and were negative
Vital Signs
Temp Pulse Resp BP Pulse Ox
98.2 F 81 17 174/107 97
01/07/24 07:35 01/07/24 07:35 01/07/24 07:35 01/07/24 07:35 01/07/24 11:33
Physical Exam
Physical Exam
Constitutional: Comfortable
Head: Other (no maxillary or sinus tenderenss)
Eyes: Other (right orbit with surrounding soft tissue induration, erythema)
Cardiovascular: Regular Rate and S1/S2
Pulmonary: Clear
Gastrointestinal: Soft, Tender and Non Distended
Genito-Urinary: Negative CVA Tenderness
Extremities: Negative Edema
Lab / Diagnostic Study Results
Abs Immat Gran (auto) 0.0 10^3/uL (0-0.05) 01/06/24 14:22
Absolute Neuts (auto) 2.1 10^3/uL (1.4-6.5) 01/06/24 14:22
Absolute Lymphs (auto) 3.4 10^3/uL (1.2-3.4) 01/06/24 14:22
Absolute Monos (auto) 0.5 10^3/uL (0.1-0.6) 01/06/24 14:22
Absolute Basos (auto) 0.0 10^3/uL (0-0.2) 01/06/24 14:22
Immature Gran % 0.3 % (0-0.5) 01/06/24 14:22
Neutrophils % 31.6 % (42.2-75.2) L 01/06/24 14:22
Lymphocytes % 52.1 % (20.5-51.1) H 01/06/24 14:22
Monocytes % 7.1 % (1.7-9.3) 01/06/24 14:22
Eosinophils % 8.4 % (0-6) H 01/06/24 14:22
Basophils % 0.5 % (0-2) 01/06/24 14:22
Microbiology Results
Micro:
01/07/24 12:44 MRSA Screen - Pending
Nose
01/06/24 CT head/orbits: Right preseptal periorbital inflammation most compatible with cellulitis. Paranasal sinus mucosal disease/sinusitis.
Assessment / Plan
# Right pre-septal cellulitis
- Agree with Vancomycin and ceftriaxone.
- Follow for abx response.
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
Multiple sclerosis
Quadriplegia
Dysphagia
Neurogenic bladder
Asthma
COVID 19 (11/25/23)
[2024-01-07 15:37] VITALS: BP 174/97
--- NOTE | 2024-01-07 16:00 | PTCARENOTE ---
Pt has refused lab draws multiple times. Dr Law notified. Labs canceled.
[2024-01-07] MEDS: ROCEPHIN 1000 MG IV (18:10)
[2024-01-07] MEDS: STERILE WATER FOR INJECTION 10 ML IV (18:12)
--- NOTE | 2024-01-07 19:15 | CM ---
met with pattient at bedside.she is a LT resident of [facility],she is bedbound,total care.she was not able to give me appropriate anwers when i asked her questions.
PCP: dr ramires
PMH:ms,quadriplegia,neurogenic bladder,glaucoma,covid 19,dysphagia,asthma
patient adm from [facility] with preseptal cellulitis.on iv rocephin,duonebs,sating 97% on ra,eye gtts.
patient will return to [facility] when stable for dc
[2024-01-07] MEDS: COSOPT EYE DROPS BOTH EYES (23:00)
[2024-01-07] MEDS: SINGULAIR PO (23:00)
[2024-01-07] MEDS: XALATAN OPHTHALMIC SOLUTION BOTH EYES (23:00)
[2024-01-07] MEDS: HEPARIN SC (23:00)
[2024-01-07] MEDS: LIORESAL PO (23:00)
[2024-01-07 23:26] VITALS: BP 140/95
[2024-01-08] MEDS: VANCOCIN 150 IV ×2 (06:18→18:19)
--- NOTE | 2024-01-08 07:16 | W.PN.HOSP.TC ---
Addendum entered and electronically signed by Vicente Law MD 01/08/24 22:35:
right eye preseptal periorbital cellulitis
Original Note:
Today's Communication/Plan
-
cont IV abx
warm compress
Ophthalmology eval Tuesday
Midline requested for reliable lab draws
Assessment / Plan
Assessment / Plan
Physical Exam
General: Well Developed, Well Nourished and No Apparent Distress
HEENT: Right Eye Swollen Shut some improvement noted from prior day with regards to swelling and erythema remains tender to touch crusting/discharge noted
Limited restricted passive opening right eye lid due to pain/swelling, during brief opening patient reported able to see through affected eye unclear acuity limited exam.
Respiratory: Clear
Cardiac: S1/S2 and Regular Rhythm; No Murmur or Rub
GI: Soft, Non Tender, Non Distended and Normal Bowel Sounds; No Organomegaly
Musculoskeletal: No Clubbing, No Cyanosis and No Edema
Skin: No Rash
Neuro: AOx2 disoriented to time
63F multiple sclerosis, quadriplegia, neurogenic bladder, glaucoma, presented from [facility] for right eye redness and swelling. Developed a stye in her right eye a week ago and 2 days later they noticed conjunctival injection and she was
started on polymyxin eyedrops which she has been on for 5 days but symptoms have not improved and in fact got worse
# Right eye preseptal cellulitis
-CT head/orbit shows right preseptal periorbital inflammation most compatible with cellulitis, paranasal sinus mucosal disease/sinusitis
-Vancomycin/ceftriaxone
-IV fluids
-warm compress
-ID eval appreciated
-Case discussed with Ophthalmology personnel security specialist who will see patient 01/08
-difficult stick, midline ordered for reliable lab draws
Multiple sclerosis
-Continue baclofen
Quadriplegia
-Hold home Eliquis DVT prophylaxis for heparin while inpt
Neurogenic bladder
Seasonal allergies
-Continue montelukast
-Continue ipratropium inhaler
Glaucoma
-Continue eyedrops
Full code
DVT prophylaxis�heparin
Regular diet
Discussed with patient and son Matty
I spent a total of 50 minutes with the patient or on the floor. More than 50% of this time involved counseling and coordination of care.
Anticipated Discharge: > 48 hours
Subjective/Interval History
-
Date of Service: January 08, 2024
right eye swelling appears improved though patient continues to have significant difficulty opening right eye.
Objective Data
-
Labs:
Laboratory Results
01/08/24
06:00
WBC Pending
Hgb Pending
Hct Pending
Plt Count Pending
Sodium Pending
Potassium Pending
Chloride Pending
Carbon Dioxide Pending
BUN Pending
Creatinine Pending
Glucose Pending
Calcium Pending
Vital Signs:
Vital Signs
Temp Pulse Resp BP Pulse Ox
98.0 F 82 18 140/95 96
01/07/24 23:26 01/07/24 23:26 01/07/24 23:26 01/07/24 23:26 01/07/24 23:26
I&O
01/07/24 01/08/24 01/09/24
06:59 06:59 06:59
Intake Total 90 / 90
Balance 90 / 90
[2024-01-08 07:45] VITALS: BP 150/96
[2024-01-08] MEDS: HEPARIN 5000 UNITS SC ×2 (09:01→20:56)
[2024-01-08] MEDS: COSOPT EYE DROPS 1 DROP BOTH EYES ×2 (09:01→20:56)
[2024-01-08] MEDS: LIORESAL 20 MG PO ×3 (09:01→20:57)
[2024-01-08] MEDS: PROTONIX 20 MG PO (09:01)
--- NOTE | 2024-01-08 10:35 | PHA.VAN.FU ---
Vancomycin Assessment / Plan
- Assessment
Renal Function: No New Labs Today (0600 Scr still pending)
In the past 24 hrs, patient has been: Afebrile
Concomitant Antimicrobials: ceftriaxone
- Dosing Plan
Continue: vancomycin 750 mg q12h
- Monitoring Plan
Peak Level: 01/07 2030 - after 4th maint dose
Trough Level: 01/08 0530
- Follow Up
Pharmacy will continue to follow.
Vancomycin Follow UP
- -
Patient Age: 63
Patient Sex: Female
Vancomycin Day #: 3
Indication: Skin And Soft Tissue ([R] EYE PRE-SEPTAL CELLULITIS)
Requesting Provider: ОЛЕГ
Height / Weight:
Height 5 ft 1 in
Actual Weight 68.901 kg
Pertinent Past Medical History: multiple sclerosis; quadriplegia
- Vital Signs / Lab Results
Temp Pulse Resp BP Pulse Ox
97.7 F 82 18 150/96 96
01/08/24 07:45 01/08/24 07:45 01/08/24 07:45 01/08/24 07:45 01/08/24 07:45
Lab Results - Hematology
01/06/24 01/07/24
14: 06:00
WBC 6.5 Cancelled
Lab Results - Chemistry
01/06/24 01/07/24
14:22 06:00
BUN 11 Cancelled
Creatinine 0.5 L Cancelled
Estimated Creat Clear Cancelled
Albumin 3.9 Cancelled
--- NOTE | 2024-01-08 13:53 | W.PN.ID1 ---
Date of Service
Date of Service: January 08, 2024
Today's Communication
Continue Vanco/ceftriaxone.
Assessment / Plan
# Right pre-septal cellulitis - stable
- Continue with Vancomycin and ceftriaxone (d3)
-Apply warm compress
- Follow for abx response.
- To consider possible allergic dermatitis from recent polymyxin gtt.
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
Multiple sclerosis
Quadriplegia
Dysphagia
Neurogenic bladder
Asthma
COVID 19 (11/25/23)
Chief Complaint
-: Cellulitis
Subjective / Review of Systems
Reports face does not feel any better. No itching.
Vital Signs / Physical Exam
Vital Signs
Vital Signs
Temp Pulse Resp BP Pulse Ox
97.7 F 82 18 150/96 96
01/08/24 07:45 01/08/24 07:45 01/08/24 07:45 01/08/24 07:45 01/08/24 07:45
Physical Exam
Constitutional: No Acute Distress
Eyes: Other (Right pascale-orbital with erythmatous rash, plaque well-demarcated margin, some crusting)
Pulmonary: Clear
Gastrointestinal: Soft, Non Tender, Non Distended and Normal Bowel Sounds
Objective Data
Lab Data
Estimated Creat Clear Cancelled 01/07/24 06:00
Total Bilirubin Cancelled 01/07/24 06:00
AST Cancelled 01/07/24 06:00
ALT Cancelled 01/07/24 06:00
Alkaline Phosphatase Cancelled 01/07/24 06:00
Most recent labs reviewed.
Micro Results:
01/07/24 12:44 MRSA Screen - Pending
Nose
01/06/24 CT head/orbits: Right preseptal periorbital inflammation most compatible with cellulitis. Paranasal sinus mucosal disease/sinusitis.
Care Review
Plan reviewed with: Physician (Dr. Law)
[2024-01-08 16:00] VITALS: BP 121/91
[2024-01-08] MEDS: ROCEPHIN 1000 MG IV (18:22)
[2024-01-08] MEDS: STERILE WATER FOR INJECTION 10 ML IV (18:22)
[2024-01-08] MEDS: DESENEX/MITRAZOL/ZEASORB 1 APPLIC TOPICAL (20:56)
[2024-01-08] MEDS: SINGULAIR 10 MG PO (20:58)
[2024-01-08] MEDS: XALATAN OPHTHALMIC SOLUTION 1 DROP BOTH EYES (20:58)
[2024-01-08] MEDS: TYLENOL 650 MG PO (21:02)
[2024-01-08 23:00] VITALS: BP 140/90
[2024-01-09 00:36] LABS: Blood Urea Nitrogen 15 mg/dl (7-17); Calcium 9.4 mg/dl (8.4-10.2); Carbon Dioxide 19 mmol/L (22-30); Chloride 105 mmol/L (98-107); Estimated Creatinine Clearance 84 ml/min; Glucose 116 mg/dl (70-99); Magnesium 1.8 mg/dl (1.6-2.3); Phosphorus 3.9 mg/dl (2.5-4.5); Potassium 4.7 mmol/L (3.5-5.1); Sodium 137 mmol/L (135-145); eGFR > 60.00
[2024-01-09 00:37] LABS: Vancomycin Peak 25.4 ug/ml (18-26)
[2024-01-09 05:46] LABS: Hematocrit 32.4 % (37.0-47.0); Hemoglobin 10.9 g/dL (12.0-16.0); Mean Corp Hgb Conc. 33.6 g/dL (33.0-37.0); Mean Corpuscular Hgb 24.7 pg (27.0-31.0); Mean Corpuscular Volume 73.3 fL (81.0-99.0); Mean Platelet Volume 10.2 fL (7.4-10.4); Platelet Count 271 10^3/uL (130-400); Red Blood Cell Count 4.42 10^6/uL (4.20-5.40); Red Cell Dist. Width 15.8 % (11.5-14.5); White Blood Cell Count 6.2 10^3/uL (4.8-10.8)
[2024-01-09 05:58] LABS: Blood Urea Nitrogen 14 mg/dl (7-17); Calcium 9.5 mg/dl (8.4-10.2); Carbon Dioxide 16 mmol/L (22-30); Chloride 108 mmol/L (98-107); Estimated Creatinine Clearance 84 ml/min; Glucose 125 mg/dl (70-99); Magnesium 1.9 mg/dl (1.6-2.3); Potassium 4.7 mmol/L (3.5-5.1); Sodium 140 mmol/L (135-145); eGFR > 60.00
[2024-01-09 06:04] LABS: Vancomycin Trough 18.4 ug/ml (5-20)
[2024-01-09] MEDS: VANCOCIN 150 IV (06:11)
[2024-01-09 07:53] VITALS: BP 143/93
[2024-01-09] MEDS: DESENEX/MITRAZOL/ZEASORB 1 APPLIC TOPICAL ×2 (08:18→19:43)
[2024-01-09] MEDS: HEPARIN 5000 UNITS SC (08:18)
[2024-01-09] MEDS: COSOPT EYE DROPS 1 DROP BOTH EYES ×2 (08:19→20:40)
[2024-01-09] MEDS: LIORESAL 20 MG PO ×3 (08:19→22:28)
[2024-01-09] MEDS: PROTONIX 20 MG PO (08:19)
--- NOTE | 2024-01-09 09:08 | PHA.VAN.FU ---
Vancomycin Assessment / Plan
- Assessment
Renal Function: Stable
WBC's are: WNL
In the past 24 hrs, patient has been: Afebrile
Concomitant Antimicrobials: ceftriaxone
- Assessment - Therapeutic Drug Monitoring
Extrapolated Cmax (mcg/mL): 33.9
Peak level was drawn: More than 3 hours after previous dose (drawn ~4.9H after end of previous infusion)
Extrapolated Cmin (mcg/mL): 17.7
Trough Drawn: Appropriately
Levels were drawn: At steady state (levels drawn after 4th maintenance dose)
Calculated AUC (mcg*h/mL): 599
Calculated ke: 0.0592
Calculated half life (H): 11.7
Calculated Vd (L): 42 (~0.6 L/kg)
Calculated Vanc CL (ml/min): 42
Peak drawn late - underestimates true Peak/Cmax and AUC and overestimates half-life
- Dosing Plan
Adjust Regimen to: Vanc 500mg Q12H
New Regimen Predicts: Trough (12.3 based on linear PK)
- Monitoring Plan
No level(s) ordered at this time: consider repeat levels in next few days
- Follow Up
Pharmacy will continue to follow.
Vancomycin Follow UP
- -
Patient Age: 63
Patient Sex: Female
Vancomycin Day #: 4
Indication: Skin And Soft Tissue
Requesting Provider: Dr. Trinidad
Pertinent Antimicrobial Allergies:
penicillins - hives
Height / Weight:
Height 5 ft 1 in
Actual Weight 68.901 kg
Pertinent Past Medical History: multiple sclerosis; quadriplegia
- Vital Signs / Lab Results
Temp Pulse Resp BP Pulse Ox
98.7 F 75 17 143/93 95
01/09/24 07:53 01/09/24 07:53 01/09/24 07:53 01/09/24 07:53 01/09/24 07:53
Lab Results - Hematology
01/06/24 01/07/24 01/09/24
14: 06:00 00:11
WBC 6.5 Cancelled Cancelled
01/09/24
05:38
WBC 6.2
Lab Results - Chemistry
01/06/24 01/07/24 01/09/24
14 06:00 00:11
BUN 11 Cancelled 15
Creatinine 0.5 L Cancelled 0.6
Estimated Creat Clear Cancelled 84
Albumin 3.9 Cancelled
01/09/24
05:38
BUN 14
Creatinine 0.5 L
Estimated Creat Clear 84
Albumin
Microbiology Results
01/07/24 12:44 MRSA Screen - Final
Nose No Methicillin Resistant Staphylococcus aureus isolated.
Therapeutic Drug Monitoring
Vancomycin Peak 25.4 ug/ml (18-26) 01/09/24 00:11
Vancomycin Trough 18.4 ug/ml (5-20) 01/09/24 05:38
--- NOTE | 2024-01-09 11:02 | W.PN.ID1 ---
Date of Service
Date of Service: January 09, 2024
Today's Communication
- Continue with Vancomycin and ceftriaxone (d4)
- At time of discharge, transition to doxycycline 100mg po bid and cefuroxime 500mg po bid through 01/14.
Assessment / Plan
# Right pre-septal cellulitis - improving
-Appreciate ophtho eval
- Continue with Vancomycin and ceftriaxone (d4)
- At time of discharge, transition to doxycycline 100mg po bid and cefuroxime 500mg po bid through 01/14.
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
Multiple sclerosis
Quadriplegia
Dysphagia
Neurogenic bladder
Asthma
COVID 19 (11/25/23)
Chief Complaint
-: Cellulitis
Subjective / Review of Systems
Right face feeling better.
Vital Signs / Physical Exam
Vital Signs
Vital Signs
Temp Pulse Resp BP Pulse Ox
98.7 F 75 17 143/93 95
01/09/24 07:53 01/09/24 07:53 01/09/24 07:53 01/09/24 07:53 01/09/24 07:53
Physical Exam
Constitutional: No Acute Distress and Comfortable
Eyes: No Conjunctival Hemorrhage, Sclera Anicteric and Other (Right circumorbital erythema decreased. + crusting. Less edematous. )
Pulmonary: Clear
Gastrointestinal: Soft, Non Tender, Non Distended and Normal Bowel Sounds
Objective Data
Lab Data
Lab Results
01/09/24 05:38
01/09/24 05:38
Estimated Creat Clear 84 ml/min 01/09/24 05:38
Total Bilirubin Cancelled 01/07/24 06:00
AST Cancelled 01/07/24 06:00
ALT Cancelled 01/07/24 06:00
Alkaline Phosphatase Cancelled 01/07/24 06:00
Most recent labs reviewed.
Micro Results:
01/07/24 12:44 MRSA Screen - Final
Nose No Methicillin Resistant Staphylococcus aureus isolated.
01/06/24 CT head/orbits: Right preseptal periorbital inflammation most compatible with cellulitis. Paranasal sinus mucosal disease/sinusitis.
Care Review
Plan reviewed with: Physician (Dr. Jefry Saunders)
--- NOTE | 2024-01-09 12:40 | W.PN.HOSP.TC ---
Today's Communication/Plan
-
add eye drops per Ophthalmology
continue IV abx per ID
DC planning back to [facility] in 24-48 hours
Assessment / Plan
Assessment / Plan
Assessment:
Right eye preseptal cellulitis
- CT head/orbit shows right preseptal periorbital inflammation most compatible with cellulitis, paranasal sinus mucosal disease/sinusitis
- continue Vancomycin/ceftriaxone per ID; at time of DC will transition to doxycycline 100mg po bid and cefuroxime 500mg po bid through 01/14.
- appreciate Ophthalmology input, start cipro eye drops 3 film QID x 1 week and OP f/u
- continue warm compress
Multiple sclerosis
- Continue baclofen
Quadriplegia
- resume home Eliquis for DVT ppx
Neurogenic bladder
Seasonal allergies
- Continue montelukast
- Continue ipratropium inhaler
Glaucoma
- Continue eyedrops
DVT ppx: Eliquis
Code: Full
Anticipated Discharge: 24 - 48 hours
Subjective/Interval History
-
Date of Service: January 09, 2024
Right face with less pain, feels better, able to open eye
Objective Data
-
Labs:
Laboratory Results
01/09/24
05:38
WBC 6.2
Hgb 10.9 L
Hct 32.4 L
Plt Count 271
Sodium 140
Potassium 4.7
Chloride 108 H
Carbon Dioxide 16 L
BUN 14
Creatinine 0.5 L
Glucose 125 H
Calcium 9.5
Vital Signs:
Vital Signs
Temp Pulse Resp BP Pulse Ox
98.7 F 75 17 143/93 95
01/09/24 07:53 01/09/24 07:53 01/09/24 07:53 01/09/24 07:53 01/09/24 07:53
I&O
01/08/24 01/09/24 01/10/24
06:59 06:59 06:59
Intake Total 90 / 90 360 / 360
Balance 90 / 90 360 / 360
Physical Exam
-
General: No Apparent Distress
HEENT: Normocephalic, Atraumatic and Other (Right circumorbital erythema decreased. + crusting. Less edematous)
Respiratory: Negative Wheezes
Cardiac: Regular Rhythm and S1/S2
GI: Soft
Neuro: AO x 3
Hematologic / Lymphatic: No Lymphadenopathy
Psych: Calm
Data Reviewed
-
Total Time Spent with Patient (in minutes): 41
Labs: Labs Reviewed by me
[2024-01-09] MEDS: CILOXAN 0.3% OPHTHALMIC SOLUTION 1 DROP RIGHT EYE ×2 (14:08→19:42)
[2024-01-09 15:00] VITALS: BP 161/88
--- NOTE | 2024-01-09 17:07 | CM ---
Pt is intermediate at [facility].
[facility] accepted back.
[facility]
report [phone]
fax [phone]
PLAN Return to [facility]
[2024-01-09] MEDS: VANCOCIN HCL 500 MG 100 IV (17:18)
[2024-01-09] MEDS: STERILE WATER FOR INJECTION 10 ML IV (17:18)
[2024-01-09] MEDS: ROCEPHIN 1000 MG IV (17:19)
[2024-01-09] MEDS: ELIQUIS 5 MG PO (19:43)
[2024-01-09] MEDS: SINGULAIR 10 MG PO (22:28)
[2024-01-09] MEDS: XALATAN OPHTHALMIC SOLUTION 1 DROP BOTH EYES (22:28)
[2024-01-09 23:43] VITALS: BP 154/76
[2024-01-10] MEDS: CILOXAN 0.3% OPHTHALMIC SOLUTION 1 DROP RIGHT EYE ×2 (01:28→07:24)
[2024-01-10] MEDS: VANCOCIN HCL 500 MG 100 IV (05:16)
[2024-01-10] MEDS: ELIQUIS 5 MG PO (07:24)
[2024-01-10] MEDS: COSOPT EYE DROPS 1 DROP BOTH EYES (07:24)
[2024-01-10] MEDS: LIORESAL 20 MG PO (07:24)
[2024-01-10] MEDS: PROTONIX 20 MG PO (07:24)
[2024-01-10] MEDS: DESENEX/MITRAZOL/ZEASORB 1 APPLIC TOPICAL (07:31)
[2024-01-10 07:44] VITALS: BP 108/66
[2024-01-10 09:14] LABS: Hematocrit 32.6 % (37.0-47.0); Hemoglobin 10.9 g/dL (12.0-16.0); Mean Corp Hgb Conc. 33.4 g/dL (33.0-37.0); Mean Corpuscular Hgb 25.4 pg (27.0-31.0); Mean Platelet Volume 10.6 fL (7.4-10.4); Platelet Count 258 10^3/uL (130-400); Red Blood Cell Count 4.29 10^6/uL (4.20-5.40); Red Cell Dist. Width 15.9 % (11.5-14.5)
--- NOTE | 2024-01-10 09:39 | W.PN.ID1 ---
Date of Service
Date of Service: January 10, 2024
Today's Communication
- Transition Vancomycin and ceftriaxone (d5) to doxycycline 100mg po bid and cefuroxime 500mg po bid through 01/14.
Assessment / Plan
# Right pre-septal cellulitis -continues to improve
-Appreciate ophtho eval
- Transition Vancomycin and ceftriaxone (d5) to doxycycline 100mg po bid and cefuroxime 500mg po bid through 01/14.
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
Multiple sclerosis
Quadriplegia
Dysphagia
Neurogenic bladder
Asthma
COVID 19 (11/25/23)
Chief Complaint
-: Cellulitis
Subjective / Review of Systems
Feels well.
Vital Signs / Physical Exam
Vital Signs
Vital Signs
Temp Pulse Resp BP Pulse Ox
97.8 F 66 12 108/66 94
01/10/24 07:44 01/10/24 07:44 01/10/24 07:44 01/10/24 07:44 01/10/24 07:44
Physical Exam
Constitutional: No Acute Distress
Eyes: No Conjunctival Hemorrhage, Sclera Anicteric and Other (right circumorbital erythema/edema significantly decreased)
Gastrointestinal: Soft, Non Tender and Non Distended
Objective Data
Lab Data
Lab Results
01/10/24 08:41
Estimated Creat Clear 84 ml/min 01/09/24 05:38
Total Bilirubin Cancelled 01/07/24 06:00
AST Cancelled 01/07/24 06:00
ALT Cancelled 01/07/24 06:00
Alkaline Phosphatase Cancelled 01/07/24 06:00
Most recent labs reviewed.
Micro Results:
01/07/24 12:44 MRSA Screen - Final
Nose No Methicillin Resistant Staphylococcus aureus isolated.
01/06/24 CT head/orbits: Right preseptal periorbital inflammation most compatible with cellulitis. Paranasal sinus mucosal disease/sinusitis.
[2024-01-10 09:49] LABS: Blood Urea Nitrogen 18 mg/dl (7-17); Calcium 8.8 mg/dl (8.4-10.2); Carbon Dioxide 24 mmol/L (22-30); Chloride 107 mmol/L (98-107); Estimated Creatinine Clearance 84 ml/min; Glucose 86 mg/dl (70-99); Potassium 4.1 mmol/L (3.5-5.1); Sodium 141 mmol/L (135-145); eGFR > 60.00
--- NOTE | 2024-01-10 10:49 | W.PN.HOSP.TC ---
Today's Communication/Plan
-
dc back to SNF today
Assessment / Plan
Assessment / Plan
Assessment:
Right eye preseptal cellulitis
- CT head/orbit shows right preseptal periorbital inflammation most compatible with cellulitis, paranasal sinus mucosal disease/sinusitis
- continue Vancomycin/ceftriaxone per ID; today will dc on doxycycline 100mg po bid and cefuroxime 500mg po bid through 01/14.
- appreciate Ophthalmology input, will continue cipro eye drops 3 film QID x 1 week and OP f/u
- continue warm compress + baby shampoo to treat crusting
Multiple sclerosis
- Continue baclofen
Quadriplegia
- continue home Eliquis for DVT ppx
Neurogenic bladder
Seasonal allergies
- Continue montelukast
- Continue ipratropium inhaler
Glaucoma
- Continue eyedrops
DVT ppx: Eliquis
Code: Full
More than 30 minutes spent in discharge including
Final examination of the patient
Summarizing hospital stay
Instructions for continuing care to all relevant caregivers
Preparation of discharge records, prescriptions, and referral forms
Total time spent (in minutes): 41
Anticipated Discharge: Today
Subjective/Interval History
-
Date of Service: January 10, 2024
no new complaints, reports eye opening easier today
Objective Data
-
Labs:
Laboratory Results
01/10/24
08:41
WBC 6.0
Hgb 10.9 L
Hct 32.6 L
Plt Count 258
Sodium 141
Potassium 4.1
Chloride 107
Carbon Dioxide 24
BUN 18 H
Creatinine 0.6
Glucose 86
Calcium 8.8
Vital Signs:
Vital Signs
Temp Pulse Resp BP Pulse Ox
97.8 F 66 12 108/66 94
01/10/24 07:44 01/10/24 07:44 01/10/24 07:44 01/10/24 07:44 01/10/24 07:44
I&O
01/09/24 01/10/24 01/11/24
06:59 06:59 06:59
Intake Total 360 / 360 400 / 400
Balance 360 / 360 400 / 400
Physical Exam
-
General: No Apparent Distress
HEENT: Normocephalic, Atraumatic and Other (Right circumorbital erythema decreased. + crusting. Less edematous)
Respiratory: Negative Wheezes
Cardiac: Regular Rhythm and S1/S2
GI: Soft
Neuro: AO x 3
Psych: Calm
Data Reviewed
-
Total Time Spent with Patient (in minutes): 41
Labs: Labs Reviewed by me
--- NOTE | 2024-01-10 10:57 | W.DS.TRANS ---
DC Summary - [employer]
-
Discharge Instructions:
Discharge Diagnosis/Procedures Right pre-septal cellulitis with crusting
Diet Other diet
Additional Diets IDDSI 4 - pureed with mildly thick (nectar)
liquids
Activity As tolerated
Instructions:
Stand-Alone Forms:
Changes to Home Medications: No
Discharge Medications:
DC Medications w/original date entered in [employer]
acetaminophen 325 mg tablet (Tylenol) 650 mg PO Q4HPRN PRN mild pain,fever>100.4 04/19/22
baclofen 10 mg tablet 20 mg PO TID Muscle spasms 04/19/22
bisacodyl 10 mg rectal suppository 10 mg MT DAILYPRN PRN 3 days no bm, mom ineffective 04/19/22
cholecalciferol (vitamin D3) 1,250 mcg (50,000 unit) capsule 1,250 mcg PO QMONTH Supplement 04/19/22
dorzolamide 22.3 mg-timolol 6.8 mg/mL eye drops 1 drp BOTH EYES BID Eye condition 04/19/22
latanoprost 0.005 % eye drops 1 drp BOTH EYES HS Eye condition 04/19/22
magnesium hydroxide 400 mg/5 mL oral suspension (Milk of Magnesia) 30 ml PO HSPRN PRN constipation 04/19/22
montelukast 10 mg tablet 10 mg PO HS Allergies 04/19/22
apixaban 5 mg tablet (Eliquis) 5 mg PO BID Blood Clot Prevention/Tx 11/25/23
ipratropium 0.5 mg-albuterol 3 mg (2.5 mg base)/3 mL nebulization soln 3 ml inhalation R Q6HPRN PRN cough/wheezing 11/25/23
famotidine 10 mg tablet 10 mg PO DAILY Gastrointestinal Issue 01/07/24
hydroxyzine HCl 25 mg tablet 25 mg PO Q12H Mental Health/Anxiety 01/07/24
cefuroxime axetil 500 mg tablet 500 mg PO BID #11 tabs 01/10/24
ciprofloxacin HCl 0.3 % eye drops 1 drp RIGHT EYE Q6H #10 mL 01/10/24
doxycycline hyclate 100 mg capsule 100 mg PO Q12 #11 caps 01/10/24
pantoprazole 20 mg tablet,delayed release 20 mg PO DAILY #30 tabs 01/10/24
Home Medication Changes
Pending Results: No
Total time spent discharging patient (in min): 40
[2024-01-10] MEDS: VIBRAMYCIN 100 MG PO (11:04)
[2024-01-10] MEDS: CEFTIN 500 MG PO (11:04)
--- NOTE | 2024-01-10 11:20 | CM ---
entered order for dc .
Pt is detention at [facility].
[facility] accepted back.
Spoke with son Matty he agrees with dc and IMM . Requested ambulance . Medical nec form complated .
[facility]
report [phone]
fax [phone]
PLAN Return to [facility]
[2024-01-10 12:02] VITALS: BP 147/91
== END 2024-01-10 12:31 | DRG 602 ==
LOC: 3 WEST ACU 17:54
PROVIDERS: Internal Medicine; ADMITTING PHYSICIAN Hospitalist; ATTENDING PHYSICIAN Internal Medicine; CONSULT PHYSICIAN Internal Medicine Infectious Disease; EMERGENCY PHYSICIAN Emergency Medicine; FAMILY PHYSICIAN Student in an Organized Health Care Education/Training Program
DX: L03.213 Periorbital cellulitis (principal); G82.50 Quadriplegia, unspecified; G35 Multiple sclerosis; R13.10 Dysphagia, unspecified; J45.909 Unspecified asthma, uncomplicated; N31.9 Neuromuscular dysfunction of bladder, unspecified; H40.9 Unspecified glaucoma; H91.93 Unspecified hearing loss, bilateral; J32.9 Chronic sinusitis, unspecified; Z79.01 Long term (current) use of anticoagulants; Z79.899 Other long term (current) drug therapy; Z86.16 Personal history of COVID-19; Z88.0 Allergy status to penicillin; Z88.8 Allergy status to other drugs, medicaments and biological substances
CPT/HCPCS: 70481; 80048; 80053; 80202; 83735; 84100; 85025; 85027; 87070; 96374; 96375; 99285; Q9967

== ENCOUNTER → 2024-01-16 12:05 | Outpatient (REF) | payer OTHER, MEDICARE, SELFPAY ==
[2024-01-16 12:57] LABS: Hematocrit 35.2 % (37.0-47.0); Hemoglobin 11.4 g/dL (12.0-16.0); Mean Corp Hgb Conc. 32.4 g/dL (33.0-37.0); Mean Corpuscular Hgb 24.5 pg (27.0-31.0); Mean Corpuscular Volume 75.7 fL (81.0-99.0); Mean Platelet Volume 11.7 fL (7.4-10.4); Platelet Count 248 10^3/uL (130-400); Red Blood Cell Count 4.65 10^6/uL (4.20-5.40); Red Cell Dist. Width 16.8 % (11.5-14.5)
[2024-01-16 13:03] LABS: ALT (SGPT) 19 U/L (0-35); AST (SGOT) 25 U/L (14-36); Albumin 3.8 g/dl (3.5-5.0); Alkaline Phosphatase 73 U/L (38-126); Blood Urea Nitrogen 16 mg/dl (7-17); Calcium 9.5 mg/dl (8.4-10.2); Carbon Dioxide 24 mmol/L (22-30); Chloride 106 mmol/L (98-107); Glucose 84 mg/dl (70-99); Potassium 4.4 mmol/L (3.5-5.1); Sodium 139 mmol/L (135-145); Total Bilirubin 0.4 mg/dl (0.2-1.3); eGFR > 60.00
[2024-01-16 13:30] LABS: % Basophils 0.5 % (0-2); % Eosinophils 8.3 % (0-6); % Immature Granulocytes 0.2 % (0-0.5); % Lymphocytes 58.4 % (20.5-51.1); % Monocytes 9.3 % (1.7-9.3); % Neutrophils 23.3 % (42.2-75.2); Absolute Eosinophils 0.5 10^3/uL (0-0.7); Absolute Lymphocytes 3.5 10^3/uL (1.2-3.4); Absolute Monocytes 0.6 10^3/uL (0.1-0.6); Absolute Neutrophils 1.4 10^3/uL (1.4-6.5); Nucleated Red Blood Cells % 0 %
== END ==
LOC: OLABN 12:05
PROVIDERS: ATTENDING PHYSICIAN Student in an Organized Health Care Education/Training Program
DX: L03.90 Cellulitis, unspecified (principal); H05.011 Cellulitis of right orbit
CPT/HCPCS: 36415; 80053; 83735; 85025

== ENCOUNTER 2024-02-27 12:38 | Inpatient (IN) | payer MEDICARE, OTHER, SELFPAY ==
[2024-02-27] VITALS (8 sets, daily range): BP systolic 114–163; BP diastolic 76–98
--- NOTE | 2024-02-27 10:30 | ED.GENMED ---
History of Present Illness
General
Chief Complaint: Breathing Problem
Source: ambulance crew
Time Seen by Provider: 02/27/24 10:19
History of Present Illness
History of Present Illness:
63-year-old female sent to the emergency room from [facility] for cough and hypoxia. Patient has dementia and severe multiple sclerosis. She is quadriplegic. She is unable to provide any history. Patient was hypoxic for medics and they
placed on a nonrebreather. She evidently did receive a DuoNeb at the facility.
Past History
Past History
ED Past Medical History: Other (Multiple sclerosis, asthma, dysphagia, neurogenic bladder, hearing difficulties, glaucoma)
Social History
Tobacco: Non-smoker
Phy Exam
Physical Exam
Physical Exam:
General: Awake, confused
Vitals: Tachycardic
Head: Atraumatic
Eyes: Pupils equal, EOMI
Throat: Airway intact, no exudates
Neck: Trachea midline
Lungs: Expiratory wheezing
Heart: Regular rate, no murmurs
Abd: Soft, Nontender, No pulsatile mass
Neuro: Quadriplegic due to multiple sclerosis with contractures of all 4 extremities
Skin: Warm, dry, no rash
Extremities: pulses equal b/l, no edema
Scores
Heart Failure Risk
Heart Failure Risk Score: Not Applicable
Sepsis
Sepsis Screening
Sepsis Assessment: Sepsis Ruled Out
Sepsis Screen
Sepsis Screen: Sepsis Ruled Out
Date: 02/27/24
Time: 13:19
Course
Orders/Labs/Results
Orders:
Orders
02/27/24 10:28
CR Chest Portable - 1 View Urgent
Comment:
Reason For Exam: hypoxia
Reason Study Needs to be Portable: Patient Unstable
02/27/24 10:29
Electrocardiogram (*1) Urgent
Reason for Study: Shortness of Breath
EKG- Treatment ONCE
Basic Metabolic Panel Urgent
COVID-19 Antigen Urgent
Source: Nasal Swab
Complete Blood Count/With Diff Urgent
Influenza A+B Rapid Molecular Urgent
IRENE Source: Nasal Swab
Specimen Description:
02/27/24 10:31
Ipratropium/Albuterol Sulfate [Duoneb] 3 ml INH R NOW STA
02/27/24 10:42
Venous Blood Gas Urgent
%Oxygen/Room Air: 28
02/27/24 11:10
Dexamethasone Sod Phosphate [Decadron] 10 mg IV NOW STA
02/27/24 11:15
Albuterol Nebs [Ventolin Nebules] 2.5 mg INH R NOW STA
02/27/24 11:38
Urinalysis Reflex To Culture Stat
Straight Cath As Directed
Frequency: One time now
02/27/24 11:50
Restraints - Non Violent As Directed
Justification-Patient:: 1-Attempts to remove tube
Restraint Type-: Soft Limb-L Wrist/4rails
Apply From (date): 02/27/24
Apply from (time): 11:50
Remove (date): 02/28/24
Remove (time): 23:59
02/27/24 12:25
Admit/Transfer Patient As Directed
Co-Sign Provider:
Level of Care: Inpatient admission
Assign to:: Telemetry
Physician / Group: Hospitalist
Diagnosis: Hypoxia
Reason for Telemetry: Medication for Arrhythmia
Date to Stop Telemetry: 02/29/24
Time to Stop Telemetry: 11:00
Reason for Hospitalization: .
Expected length of stay greater than two midnights?: Yes
ELOS- Estimated Length of Stay in days: 3
I certify the patient meets the requirements for IP care: Yes
02/27/24 12:26
PRN Pain Medication Management As Directed
May give lesser potent ordered pain med per pt: Yes
preference::
Protocol:: Medication orders for pain may be administered in a
manner that supports deferring to patient preference
when the pt is:
- Requesting an ordered lesser potent pain medication.
Least to most potent pain medications are defined
as: acetaminophen < NSAID < tramadol < opioids
(morphine, oxycodone, hydromorphone).
- Requesting a lesser dose of the same medication IF
ORDERED.
- Requesting a less intrusive route of administration
if both routes are prescribed by the provider (PO <
IV).
02/27/24 12:28
Code Status As Directed
Resuscitation Status: Full Code
02/27/24 12:53
NT-proBNP Stat
Troponin I Stat
Blood Culture Stat
IRENE Source: Blood/Venous
Specimen Description:
02/29/24 11:00
DC Protocol for Telemetry ONCE
Abnormal Lab Results
02/27/24 02/27/24
10:29 10:42
WBC 11.8 H 10^3/uL
(4.8-10.8)
MCV 76.6 L fL
(81.0-99.0)
MCH 24.8 L pg
(27.0-31.0)
MCHC 32.4 L g/dL
(33.0-37.0)
RDW 15.7 H %
(11.5-14.5)
Absolute Neuts (auto) 9.6 H 10^3/uL
(1.4-6.5)
Neutrophils % 81.0 H %
(42.2-75.2)
Lymphocytes % 12.4 L %
(20.5-51.1)
VBG pO2 60 H mmHg
(30-50)
Carbon Dioxide 20 L mmol/L
(22-30)
Creatinine 0.5 L mg/dL
(0.6-1.0)
Glucose 130 H mg/dl
(70-99)
02/27/24 10:29
02/27/24 10:29
Vital Signs
Initial and Last Documented VS:
Initial Vital Signs
Temp Pulse Resp BP Pulse Ox
99.4 F 122 25 138/94 89
02/27/24 10:16 02/27/24 10:16 02/27/24 10:16 02/27/24 10:16 02/27/24 10:16
Last Documented Vital Signs
Temp Pulse Resp BP Pulse Ox
99.4 F 119 22 114/91 91
02/27/24 10:16 02/27/24 11:45 02/27/24 11:45 02/27/24 11:00 02/27/24 11:45
MDM/Problems Addressed
Differential Diagnosis Includes:
Pneumonia, aspiration, asthma exacerbation
MDM/Problems Addressed:
Patient presents with hypoxia and wheezing. She is unable provide any history. Labs show a mildly elevated white blood cell count. Venous blood gas was essentially normal. Chemistries were unremarkable. No significant findings on chest x-ray.
Patient noted to have tachycardia however this is after breathing treatments and is likely secondary to the albuterol.
My primary concern is that perhaps the patient suffered from an aspiration event. However she does have wheezing. Will treat with IV steroids. No indication for antibiotics at this time as she is afebrile and her chest x-ray is unimpressive.
Patient will be hospitalized for supplemental oxygen further monitoring and treatment.
Chronic conditions affecting care: Neurological disorder (Multiple sclerosis)
Acute Exacerbation and/or Progression of Chronic Illness: Asthma
*Radiology
Radiology exam reviewed: preliminary read by ED provider (No acute abnormalities, poor inspiratory effort)
*Pulse Oximetry
Patient hypoxic: yes
*Critical Care Note
Total Time (30-74mins, 75-104mins- exclusive of procedures): Not Applicable
Patient Management
Social determinants of health affecting care: Living situation
ED Attending Note
-
Portions of this chart may have been created with voice recognition software.� Occasional wrong word or��sound alike� substitutions may have occurred due to the inherent limitations of voice recognition software.
Discharge Plan
Departure
Patient Disposition: Admit
Date of Disposition: 02/27/24
Time of Disposition: 11:17
Admit to: Med/Surg
Presentation/result/management discussed w/ accepting MD/DO: Hospitalist
Condition: Fair
Discharge Problem:
Hypoxia, Asthma exacerbation
Interventions
Interventions:
*Risk Screen - Suicide Last Done: 02/27/24 10:16
*General Assessment Last Done: 02/27/24 10:16
*Neglect/Abuse Screening Last Done: 02/27/24 10:16
ED- Fall Risk Assessment Last Done: 02/27/24 10:51
*ED COVID-19 Vaccine History Last Done: 02/27/24 10:16
ED- Cardiac Assessment Last Done: 02/27/24 10:51
ED- Pulmonary Assessment Last Done: 02/27/24 10:51
[2024-02-27 10:41] LABS: % Basophils 0.3 % (0-2); % Eosinophils 1.1 % (0-6); % Immature Granulocytes 0.3 % (0-0.5); % Lymphocytes 12.4 % (20.5-51.1); % Monocytes 4.9 % (1.7-9.3); Absolute Eosinophils 0.1 10^3/uL (0-0.7); Absolute Lymphocytes 1.5 10^3/uL (1.2-3.4); Absolute Monocytes 0.6 10^3/uL (0.1-0.6); Absolute Neutrophils 9.6 10^3/uL (1.4-6.5); Hematocrit 38.9 % (37.0-47.0); Hemoglobin 12.6 g/dL (12.0-16.0); Mean Corp Hgb Conc. 32.4 g/dL (33.0-37.0); Mean Corpuscular Hgb 24.8 pg (27.0-31.0); Mean Corpuscular Volume 76.6 fL (81.0-99.0); Nucleated Red Blood Cells % 0 %; Platelet Count 295 10^3/uL (130-400); Red Blood Cell Count 5.08 10^6/uL (4.20-5.40); Red Cell Dist. Width 15.7 % (11.5-14.5); White Blood Cell Count 11.8 10^3/uL (4.8-10.8)
[2024-02-27] MEDS: DUONEB 3 ML INH ×3 (10:43→19:42)
[2024-02-27 10:49] LABS: Venous Blood Gas B.E. -3.5 mmol/L (-4 to +4); Venous Blood Gas HCO3 22.1 mmol/L (22-27); Venous Blood Gas O2 Sat % 89.5 %; Venous Blood Gas pCO2 41 mmHg (35-48); Venous Blood Gas pH 7.34 (7.32-7.43); Venous Blood Gas pO2 60 mmHg (30-50)
[2024-02-27 10:54] LABS: Blood Urea Nitrogen 15 mg/dl (7-17); Calcium 9.6 mg/dl (8.4-10.2); Carbon Dioxide 20 mmol/L (22-30); Chloride 104 mmol/L (98-107); Glucose 130 mg/dl (70-99); Sodium 139 mmol/L (135-145); eGFR > 60.00
--- NOTE | 2024-02-27 11:01 | RESPNOTE ---
patient hypoxic on nasal cannula @ 6L, SpO2 87-88%. transitioned to midflow @ 10L with humidity. SpO2 improved to 94% after re-positioning. RN updated.
[2024-02-27 11:05] LABS: COVID-19 Antigen Negative (Negative)
[2024-02-27] MEDS: DECADRON 10 MG IV (11:41)
[2024-02-27] MEDS: VENTOLIN NEBULES 2.5 MG INH (11:41)
--- NOTE | 2024-02-27 12:29 | HPS.HSE ---
Family Physician
-
Family Physician: Josh Romo DO
Chief Complaint
-
[facility] and hypoxia
History of Present Illness
History taken from the ER note [facility] Patient is unable to provide history due to underlying cognitiveimpairment. This is 63 years old female who [facility] and [facility].
Reportedly oxygen dropped down to 88% on room air, she was placed on oxygen up to 3 to 4 L with not much improvement in oxygenation. She was noted to have respiratory distress. She was sent to the hospital. In the ER, she was placed on mid flow
and noted to have respiratory wheezes. She was giving steroid treatment intravenous dexamethasone by the ER doctor with nebulizer treatment. Mild leukocytosis noted. Negative COVID and influenza screen. proBNP and troponin were not sent.
Medical History
Past Medical History
Past Medical History: Reports Other (Multiple sclerosis, asthma, dysphagia, neurogenic bladder, hearing difficulties, glaucoma))
Past Surgical History: Reports None
Social History
Unable to obtain full social history at this time due to: Patient Non-verbal
Family History
Family History: Unable to Obtain
Allergies / Home Medications
Allergies reflects when Allergies were last updated in [facility] [employer].
Home Medications with original date entered in [employer] [facility] [employer]
Allergy/Medication List:
Allergies
Allergy/AdvReac Type Severity Reaction Status Date / Time
Penicillins Allergy Hives. Verified 02/27/24 10:27
Tolerates
cephalosporins.
zolpidem [From Ambien] Allergy Unknown Verified 02/27/24 10:27
Home Medications
acetaminophen 325 mg tablet (Tylenol) 650 mg PO Q4HPRN PRN mild pain,fever>100.4 04/19/22
baclofen 10 mg tablet 20 mg PO TID Muscle spasms 04/19/22
bisacodyl 10 mg rectal suppository 10 mg [place] DAILYPRN PRN 3 days no bm, mom ineffective 04/19/22
cholecalciferol (vitamin D3) 1,250 mcg (50,000 unit) capsule 1,250 mcg PO QMONTH Supplement 04/19/22
dorzolamide 22.3 mg-timolol 6.8 mg/mL eye drops 1 drp BOTH EYES BID Eye condition 04/19/22
latanoprost 0.005 % eye drops 1 drp BOTH EYES HS Eye condition 04/19/22
magnesium hydroxide 400 mg/5 mL oral suspension (Milk of Magnesia) 30 ml PO HSPRN PRN constipation 04/19/22
montelukast 10 mg tablet 10 mg PO HS Allergies 04/19/22
apixaban 5 mg tablet (Eliquis) 5 mg PO BID Blood Clot Prevention/Tx 11/25/23
ipratropium 0.5 mg-albuterol 3 mg (2.5 mg base)/3 mL nebulization soln 3 ml inhalation R Q4HPRN PRN cough/wheezing 11/25/23
pantoprazole 20 mg tablet,delayed release 20 mg PO DAILY #30 tabs 01/10/24
sennosides 8.6 mg-docusate sodium 50 mg tablet 1 tab-cap PO DAILY 02/27/24
Review of Systems
-
Unable to obtain full review of systems at this time due to: Patient Non-verbal
Physical Exam
Vital Signs
Vital Signs
Temp Pulse Resp BP Pulse Ox
99.4 F 119 22 114/91 91
02/27/24 10:16 02/27/24 11:45 02/27/24 11:45 02/27/24 11:00 02/27/24 11:45
Physical Exam
General: Other (Patient is sitting in her bed. Does not seem in pain or discomfort. She is mild. Unable to follow commands. Per records, functional quadriplegia, dementia and deafness)
HEENT: Moist mucous membranes and Atraumatic
Respiratory: Wheezes and Rales
Cardiac: S1/S2 and Tachycardia
GI: Soft, Non Tender and Non Distended
Genito-urinary: No Guerrero
Musculoskeletal: No Cyanosis and No Edema
Skin: No Jaundice
Neuro: Awake and Other (Patient seems to be sitting and following objects in the room. She smiled. History of deafness on her records. Known to have functional quadriplegia)
Psych: Calm and Apparent Dementia
Laboratory Results
-
02/27/24 10:29
02/27/24 10:29
Impression/Plan
-
63 years old [facility]
#Acute hypoxic respiratory failure
Patient had respiratory distress, using accessory muscles with documented hypoxia. In the ER, patient was put on medical floor. Positive wheezes bilaterally on examination
CXR: Low lung volumes with increased bronchovascular markings bilaterally, which could represent mild interstitial edema. No focal airspace disease. No pleural effusions.
Admit the patient to the hospital
Continue with nebulizer treatment
Check proBNP, troponin. EKG nonspecific changes. If elevated proBNP, check echocardiogram.
Patient was given a steroid and nebulizer treatment in the ER. Check ABG if no improvement.
Patient has history of dysphagia, cannot rule out aspiration pneumonitis empiric antibiotics, do blood culture.
Monitor WBC and temperature curve
Patient on modified diet and not to have oropharyngeal dysphagia
Negative COVID and influenza screen
Consult pulmonary, appreciate input
#Multiple sclerosis/ poor historian -Advanced
#Chronic nonambulatory status with contractures
# Functional Quadriplegia
- continue home Eliquis
-Continue baclofen 3 times daily
#Chronic Dysphagia hx
-[facility] at [facility]�ed nectar thickened liquid
#Neurogenic bladder hx
-Bladder scan and straight cath
#Glaucoma hx
Continue eyedrops
#Seasonal allergies
#Bilateral deafness hx
DVT prophylaxis
Subcutaneous c/w Eliquis
Total time spent to see the patient on the floor, examine the patient, review data and lab results, discuss treatment plan with patient, ER doctor, nursing staff around 75 minutes
[2024-02-27 13:29] LABS: Troponin I < 0.012 ng/ml
[2024-02-27 13:48] LABS: NT-proBNP 234 pg/ml
[2024-02-27 17:21] LABS: Urine Albumin Negative (Neg - Trace); Urine Bilirubin Negative (Negative); Urine Character Clear (Clear); Urine Color Yellow; Urine Glucose Negative (Negative); Urine Ketone Negative (Negative); Urine Leukocyte Negative (Negative); Urine Nitrite Negative (Negative); Urine Occult Blood Negative (Negative); Urine Urobilinogen Negative (Neg - 1+)
[2024-02-27] MEDS: AZACTAM 1000 MG IV (17:32)
[2024-02-27] MEDS: STERILE WATER FOR INJECTION 10 ML IV (17:34)
[2024-02-27] MEDS: FLUSH (NSS) 1 FLUSH IV (17:36)
[2024-02-27] MEDS: LIORESAL 20 MG PO ×2 (17:38→21:02)
[2024-02-27] MEDS: COSOPT EYE DROPS 1 DROP BOTH EYES (20:52)
[2024-02-27] MEDS: ELIQUIS 5 MG PO (20:52)
[2024-02-27] MEDS: SOLU-MEDROL PF 40 MG IV (21:01)
[2024-02-27] MEDS: XALATAN OPHTHALMIC SOLUTION 1 DROP BOTH EYES (21:02)
[2024-02-28] MEDS: STERILE WATER FOR INJECTION 10 ML IV ×4 (00:20→23:21)
[2024-02-28] MEDS: AZACTAM 1000 MG IV ×4 (00:20→23:21)
[2024-02-28 03:00] VITALS: BP 136/81
[2024-02-28 07:00] VITALS: BP 136/81
[2024-02-28] MEDS: DUONEB 3 ML INH ×2 (07:49→11:56)
--- NOTE | 2024-02-28 09:03 | W.PN.HOSP.TC ---
Today's Communication/Plan
-
Repeat blood culture
c/w IV Abx
c/w IV steroid/ Nebulizer
Aspiration precautions
f/w pulmonary recommendations
Assessment / Plan
Assessment / Plan
Physical Exam
General: Other (Patient is sitting in her bed. Does not seem in pain or discomfort. She is mild. Unable to follow commands. Per records, functional quadriplegia, dementia and deafness)
HEENT: Moist mucous membranes and Atraumatic
Respiratory: Wheezes and Rales
Cardiac: S1/S2 and Tachycardia
GI: Soft, Non Tender and Non Distended
Genito-urinary: No Guerrero
Musculoskeletal: No Cyanosis and No Edema
Skin: No Jaundice
Neuro: Awake and Other (Patient seems to be sitting and following objects in the room. She smiled. History of deafness on her records. Known to have functional quadriplegia)
Psych: Calm and Apparent Dementia
63 years old female was sent from [facility] term for respiratory distress
#Acute hypoxic respiratory failure
Patient had respiratory distress, using accessory muscles with documented hypoxia.
oxygen requirement is down from Midflow to 4 liters O2
likely aspiration PNA
No Positive wheezes bilaterally on examination
CXR: Low lung volumes with increased bronchovascular markings bilaterally, which could represent mild interstitial edema. No focal airspace disease. No pleural effusions.
Normal low proBNP, negative troponin. EKG nonspecific changes.
c/w IV steroid ( will lower the dose due to her clinical improvement and to avoid side effects of high steroid)
c/w nebulizer treatment
Pt is known to have dysphagia and family is aware and wanted to c/w modified diet
Patient was given a steroid and nebulizer treatment in the ER. Check ABG if no improvement. Monitored WBC and temperature curve. Order CBC in am
Negative COVID and influenza screen
Consult pulmonary, appreciate input
# Bacteremia 02/26
c/w empiric IV Aztreonam for now
repeat blood culture 02/27
#Multiple sclerosis/ poor historian -Advanced
#Chronic nonambulatory status with contractures
# Functional Quadriplegia
- continue home Eliquis
-Continue baclofen 3 times daily
#Chronic Dysphagia hx
-Diet at long term pur�ed nectar thickened liquid
#Neurogenic bladder hx
-Bladder scan and straight cath
#Glaucoma hx
Continue eyedrops
#Seasonal allergies
#Bilateral deafness hx
she seems to respond to questions
DVT prophylaxis
Subcutaneous c/w Eliquis
I updated her son
Total time spent to see the patient on the floor, examine the patient, review data and lab results, discuss treatment plan with patient, nursing staff around 59 minutes
Anticipated Discharge: > 48 hours
Subjective/Interval History
-
Date of Service: February 28, 2024
She looks better
she does not like nebulizer
She denies chest pain, abd pain
Objective Data
-
Vital Signs:
Vital Signs
Temp Pulse Resp BP Pulse Ox
97.5 F 83 18 136/81 96
02/28/24 03:00 02/28/24 07:51 02/28/24 07:51 02/28/24 03:00 02/28/24 07:51
I&O
02/27/24 02/28/24 02/29/24
06:59 06:59 06:59
Intake Total 0 / 0
Output Total 275 / 275
Balance -275 / -275
--- NOTE | 2024-02-28 09:41 | CON.PUL ---
Consultation
Consultation Request
Date/Time Consultation Requested: 02/28/2024-8 AM
Date/Time Consultation Performed: 02/28/2024-8:30 AM
Requesting Provider: Hospitalist
Performing Provider: Dr. Way
Reason for Consultation: Shortness of breath and wheezing
Medical History
-
Chief Complaint: Wheeze and shortness of breath
History of Present Illness:
63-year-old female with a history of multiple sclerosis, asthma, dysphagia, neurogenic bladder and cognitive impairment who presented from residential with respiratory distress, hypoxemia and wheezing-pulmonary consulted for wheezing/shortness of
breath 02/28/2024. Patient is alert and denies any shortness of breath at rest now. She has less wheezing. She denies any chest pain, chest tightness, wheezing, productive cough, abdominal pain, or swelling.
Past Medical History
Past Medical History: None (Multiple sclerosis. Essential quadriplegia. [facility] patient-[facility]. Asthma. Dysphagia. Neurogenic bladder. ADL dysfunction. Hearing difficulties. Glaucoma.)
Social History
Tobacco: Non-smoker
Alcohol: None
Drug: None
Living: Prison
Occupational Exposures: No known asbestos exposure
Environmental Exposures: No known tuberculosis exposure
Allergies / Home Medications
Allergies
Allergy/AdvReac Type Severity Reaction Status Date / Time
Penicillins Allergy Hives. Verified 02/27/24 10:27
Tolerates
cephalosporins.
zolpidem [From Ambien] Allergy Unknown Verified 02/27/24 10:27
Home Medications
�Medication �Instructions �Recorded �Confirmed �Last Taken �Type
acetaminophen 325 mg tablet 650 mg PO Q4HPRN PRN mild 04/19/22 02/27/24 Unknown History
(Tylenol) pain,fever>100.4
baclofen 10 mg tablet 20 mg PO TID Muscle spasms 04/19/22 02/27/24 Unknown History
bisacodyl 10 mg rectal suppository 10 mg [place] DAILYPRN PRN 3 days no 04/19/22 02/27/24 Unknown History
bm, mom ineffective
cholecalciferol (vitamin D3) 1,250 1,250 mcg PO QMONTH Supplement 04/19/22 02/27/24 Unknown History
mcg (50,000 unit) capsule
dorzolamide 22.3 mg-timolol 6.8 1 drp BOTH EYES BID Eye condition 04/19/22 02/27/24 Unknown History
mg/mL eye drops
latanoprost 0.005 % eye drops 1 drp BOTH EYES HS Eye condition 04/19/22 02/27/24 Unknown History
magnesium hydroxide 400 mg/5 mL 30 ml PO HSPRN PRN constipation 04/19/22 02/27/24 Unknown History
oral suspension (Milk of Magnesia)
montelukast 10 mg tablet 10 mg PO HS Allergies 04/19/22 02/27/24 Unknown History
apixaban 5 mg tablet (Eliquis) 5 mg PO BID Blood Clot 11/25/23 02/27/24 Unknown History
Prevention/Tx
ipratropium 0.5 mg-albuterol 3 mg 3 ml inhalation R Q4HPRN PRN 11/25/23 02/27/24 Unknown History
(2.5 mg base)/3 mL nebulization cough/wheezing
soln
pantoprazole 20 mg tablet,delayed 20 mg PO DAILY Gastrointestinal 02/27/24 02/27/24 Unknown History
release Issue
sennosides 8.6 mg-docusate sodium 1 tab-cap PO DAILY Constipation 02/27/24 02/27/24 Unknown History
50 mg tablet
Review of Systems
-
Unable to Obtain full review of systems at this time due to: Other (Per HPI)
Vitals / Labs / Diagnostic Testing
Vital Signs
Temp Pulse Resp BP Pulse Ox
97.7 F 83 18 136/81 96
02/28/24 07:00 02/28/24 07:51 02/28/24 07:51 02/28/24 07:00 02/28/24 07:51
Lab Data
02/27/24 10:29
02/27/24 10:29
Microbiology
02/27/24 12:53 Blood/Venous Blood Culture - Preliminary
Positive culture in progress
02/27/24 12:53 Blood/Venous Gram Stain - Final
02/27/24 10:29 Nasal Swab Influenza Types A & B (JENNIFER) - Final
Negative for Influenza A & B, NAAT
Negative results must be combined with clinical observations
and patient history.
Nucleic Acid Amplification test (NAAT)performed on the
[employer] platform.
Diagnostic Testing:
Physical Exam
-
Exam:
Well-nourished and well-developed in no apparent distress
HEENT-atraumatic, normocephalic, alopecia
Neck-supple, no JVD, no bruit
Heart-regular rate and rhythm-no murmurs, rubs or gallops
Chest with few expiratory wheezes and no crackles
Abdomen-soft, nontender, nondistended, no hepatosplenomegaly
Extremities-no cyanosis, clubbing, edema and good peripheral pulses
Integument-intact, no rashes, lesions or ecchymosis
Neurology-alert and oriented,, essentially quadriplegic
Assessment
-
63-year-old female with a history of multiple sclerosis, asthma, dysphagia, neurogenic bladder and cognitive impairment who presented from residential with respiratory distress, hypoxemia and wheezing-pulmonary consulted for wheezing/shortness of
breath 02/28/2024.
Aspiration pneumonia-in a residential patient
Asthma with mild acute exacerbation
Bacteremia
Leukocytosis
Mild hyperglycemia
Metabolic acidosis
Conditions present prior to admission:
Recent hospitalization-discharged 11/27/2023-covid infection
Multiple sclerosis.
Essential quadriplegia.
[facility] patient-[facility].
Asthma.
Dysphagia.
Neurogenic bladder.
ADL dysfunction.
Hearing difficulties.
Glaucoma.
Plan
Respiratory decompensation likely due to bronchitis/early pneumonia with bacteremia
Supplemental oxygen
Nebulizers
Methylprednisolone 40 mg IV daily initiated
Aspiration precautions
Check cultures
Empiric antibiotics
Follow radiographically
Follow leukocytosis and temperature curve
DVT prophylaxis-on chronic Eliquis
GI prophylaxis-on pantoprazole
Nutrition with aspiration precautions
Bedside range of motion
Reviewed with primary team and nursing
Diagnostic data:
Chest x-ray 11/25/2023-NAD
Chest x-ray 02/27/2024-low lung volumes, mild interstitial edema-proBNP negative
Data Reviewed
-
EKG: Report reviewed by me
Radiology: Image personally visualized and interpreted and Report reviewed by me
Medical Tests (Nuc Med, Echo etc): Report reviewed by me
Labs: Labs reviewed by me
Old Records: Reviewed
Total Time Spent with Patient (in minutes): 55
[2024-02-28] MEDS: COSOPT EYE DROPS 1 DROP BOTH EYES ×2 (10:22→21:07)
[2024-02-28] MEDS: SENOKOT-S 1 TABLET PO (10:33)
[2024-02-28] MEDS: ELIQUIS 5 MG PO ×2 (10:33→21:07)
[2024-02-28] MEDS: LIORESAL 20 MG PO ×3 (10:34→21:07)
[2024-02-28] MEDS: FLUSH (NSS) 1 FLUSH IV ×2 (10:37→17:32)
[2024-02-28] MEDS: PROTONIX 20 MG PO (10:42)
[2024-02-28 11:00] VITALS: BP 130/94
--- NOTE | 2024-02-28 11:45 | CM ---
Pt seen bedside. Pt admitted from [facility]
Pt lives alone in a [address]- no steps to enter
Prev. independent. Denies DME use for daily functioning
Pt does not use home O2, is currently on 4L O2 in hospital. Nebulizer tx
Denies VN/PT hx
Denies financial insecurities
Address, point of contacts and insurance verified
PCP: Dr. Josh Romo
Pharmacy: [facility]
Plan: CM will cont to follow for potential d/c needs
[2024-02-28 15:00] VITALS: BP 127/78
[2024-02-28] MEDS: DUONEB INH ×3 (15:30→20:00)
[2024-02-28 19:00] VITALS: BP 120/81
[2024-02-28] MEDS: XALATAN OPHTHALMIC SOLUTION 1 DROP BOTH EYES (21:07)
[2024-02-28 23:02] VITALS: BP 124/77
[2024-02-29 03:00] VITALS: BP 139/92
[2024-02-29 07:05] VITALS: BP 112/65
[2024-02-29] MEDS: DUONEB 3 ML INH (07:41)
[2024-02-29] MEDS: LIORESAL 20 MG PO ×3 (08:06→20:37)
[2024-02-29] MEDS: SOLU-MEDROL PF 40 MG IV (08:06)
[2024-02-29] MEDS: PROTONIX 20 MG PO (08:06)
[2024-02-29] MEDS: SENOKOT-S 1 TABLET PO (08:06)
[2024-02-29] MEDS: ELIQUIS 5 MG PO ×2 (08:06→20:37)
[2024-02-29] MEDS: AZACTAM 1000 MG IV ×3 (08:07→23:52)
[2024-02-29] MEDS: STERILE WATER FOR INJECTION 10 ML IV ×3 (08:07→23:52)
[2024-02-29] MEDS: COSOPT EYE DROPS 1 DROP BOTH EYES ×2 (08:09→20:38)
--- NOTE | 2024-02-29 09:05 | W.PN.HOSP.TC ---
Today's Communication/Plan
-
Likely dc in am if continues to need less oxygen
c/w empiric ABx for another 24 hours then dc
blood culture c/w contamination
Assessment / Plan
Assessment / Plan
Physical Exam
General: Other (Patient is sitting in her bed. Does not seem in pain or discomfort. She is mild. Unable to follow commands. Per records, functional quadriplegia, dementia and deafness)
HEENT: Moist mucous membranes and Atraumatic
Respiratory: Wheezes and Rales
Cardiac: S1/S2 and Tachycardia
GI: Soft, Non Tender and Non Distended
Genito-urinary: No Guerrero
Musculoskeletal: No Cyanosis and No Edema
Skin: No Jaundice
Neuro: Awake and Other (Patient seems to be sitting and following objects in the room. She smiled. History of deafness on her records. Known to have functional quadriplegia)
Psych: Calm and Apparent Dementia
63 years old female was sent from senior care for respiratory distress
#Acute hypoxic respiratory failure
Patient had respiratory distress, using accessory muscles with documented hypoxia.
oxygen requirement is down from Midflow to 4 liters O2
likely aspiration PNA
No Positive wheezes bilaterally on examination
CXR: Low lung volumes with increased bronchovascular markings bilaterally, which could represent mild interstitial edema. No focal airspace disease. No pleural effusions.
Normal low proBNP, negative troponin. EKG nonspecific changes.
s/p IV steroid ( will lower the dose due to her clinical improvement and to avoid side effects of high steroid)
c/w nebulizer treatment
Pt is known to have dysphagia and family is aware and wanted to c/w modified diet
Negative COVID and influenza screen
Consult pulmonary, appreciate input
# Bacteremia 02/26, c/w contaminant coagulase negative staph
repeat blood culture 02/27
#Multiple sclerosis/ poor historian -Advanced
#Chronic nonambulatory status with contractures
# Functional Quadriplegia
- continue home Eliquis
-Continue baclofen 3 times daily
#Chronic Dysphagia hx
-Diet at senior care pur�ed nectar thickened liquid
#Neurogenic bladder hx
-Bladder scan and straight cath
#Glaucoma hx
Continue eyedrops
#Seasonal allergies
#Bilateral deafness hx
she seems to respond to questions
DVT prophylaxis
Subcutaneous c/w Eliquis
I updated her son
Total time spent to see the patient on the floor, examine the patient, review data and lab results, discuss treatment plan with patient, her son, nursing staff around 57 minutes
Anticipated Discharge: Within 24 hours
Subjective/Interval History
-
Date of Service: February 29, 2024
She is feeling better
less O2 requirement
Objective Data
-
Labs:
Laboratory Results
02/29/24
06:00
WBC Pending
Hgb Pending
Hct Pending
Plt Count Pending
Sodium Pending
Potassium Pending
Chloride Pending
Carbon Dioxide Pending
BUN Pending
Creatinine Pending
Glucose Pending
Calcium Pending
Total Bilirubin Pending
AST Pending
ALT Pending
Alkaline Phosphatase Pending
Vital Signs:
Vital Signs
Temp Pulse Resp BP Pulse Ox
97.1 F 83 17 112/65 96
02/29/24 07:05 02/29/24 07:43 02/29/24 07:43 02/29/24 07:05 02/29/24 07:43
I&O
02/28/24 02/29/24 03/01/24
06:59 06:59 06:59
Intake Total 0 / 0 300 / 300
Output Total 275 / 275
Balance -275 / -275 300 / 300
--- NOTE | 2024-02-29 09:21 | W.PN.PUL.V3 ---
Today's Communication / Plan
-
Wean oxygen
Change Solu-Medrol to prednisone
Empiric antibiotics
Check procalcitonin
Check echocardiogram
Assessment
-
63-year-old female with a history of multiple sclerosis, asthma, dysphagia, neurogenic bladder and cognitive impairment who [facility], hypoxemia and wheezing-pulmonary consulted for wheezing/shortness of
breath 02/28/2024.
Aspiration [facility]-in a jail patient
Asthma with mild acute exacerbation
Bacteremia
Leukocytosis
Mild hyperglycemia
Metabolic acidosis
Conditions present prior to admission:
Recent hospitalization-discharged 11/27/2023-covid infection
Multiple sclerosis.
Essential quadriplegia.
[facility] patient-[facility].
Asthma.
Dysphagia.
Neurogenic bladder.
ADL dysfunction.
Hearing difficulties.
Glaucoma.
Plan
Respiratory decompensation likely due to bronchitis/early pneumonia with bacteremia
Supplemental oxygen-attempt to wean
Nebulizers-DuoNebs
Methylprednisolone 40 mg IV daily initiated-convert to oral prednisone with fairly rapid taper
Aspiration precautions
Cultures reviewed
1/2 blood culture positive for coag negative staph
Influenza negative
MRSA screen negative
Unable to produce sputum
Empiric antibiotics-aztreonam
Check procalcitonin-if negative consider short course of antibiotics
Check echocardiogram with mild interstitial edema on chest x-ray, pro BNP negative however
Follow radiographically
Follow leukocytosis and temperature curve-WBCs down and currently afebrile
DVT prophylaxis-on chronic Eliquis
GI prophylaxis-on pantoprazole
Nutrition with aspiration precautions
Bedside range of motion
Reviewed with primary team and nursing
Diagnostic data:
Chest x-ray 11/25/2023-NAD
Chest x-ray 02/27/2024-low lung volumes, mild interstitial edema-proBNP negative
Subjective Data
-
Date of Service:
Date of Service: February 29, 2024
Chief Complaint: Pulmonary Follow Up and Dyspnea Follow Up
Subjective:
She denies any shortness of breath, wheeze, chronic cough, no obvious aspiration, no pain
Review of Systems
General: Other (Per HPI)
Objective Data
Data Reviewed
Vital Signs / I&O:
Vital Signs
Temp Pulse Resp BP Pulse Ox
97.1 F 83 17 112/65 96
02/29/24 07:05 02/29/24 07:43 02/29/24 07:43 02/29/24 07:05 02/29/24 07:43
Intake and Output
02/28/24 02/29/24 03/01/24
06:59 06:59 06:59
Intake Total 0 / 0 300 / 300
Output Total 275 / 275
Balance -275 / -275 300 / 300
SaO2: 96
Nasal Cannula flow liters per minute: 4
Physical Exam
General: Respiratory Distress (n) and Comfortable
HEENT: Normocephalic and Other (Alopecia)
Cardiovascular: Regular Rhythm
Respiratory: Wheeze (n), Crackles (Basilar), Rhonchi (n), Non-Labored Respirations, Accessory Resp Muscle Use (n) and Stridor
GI: Soft, Non Distended and Non Tender
Neurology: Awake, Alert and No Motor Deficits
Skin: Warm, Good Color, Cyanosis (n), Jaundice (n) and Rash (n)
Labs/Micro/Reports
Microbiology
02/27/24 12:53 Blood/Venous Blood Culture - Preliminary
Coagulase neg. staphylococcus
Positive culture in progress
02/27/24 12:53 Blood/Venous Gram Stain - Final
02/27/24 18:47 Nose MRSA Screen - Final
No Methicillin Resistant Staphylococcus aureus isolated.
02/27/24 10:29 Nasal Swab Influenza Types A & B (JENNIFER) - Final
Negative for Influenza A & B, NAAT
Negative results must be combined with clinical observations
and patient history.
Nucleic Acid Amplification test (NAAT)performed on the
[email or web address] platform.
[2024-02-29 10:23] LABS: Hematocrit 37.9 % (37.0-47.0); Hemoglobin 12.2 g/dL (12.0-16.0); Mean Corp Hgb Conc. 32.2 g/dL (33.0-37.0); Mean Corpuscular Hgb 25.6 pg (27.0-31.0); Mean Corpuscular Volume 79.6 fL (81.0-99.0); Mean Platelet Volume 10.3 fL (7.4-10.4); Platelet Count 283 10^3/uL (130-400); Red Blood Cell Count 4.76 10^6/uL (4.20-5.40); Red Cell Dist. Width 16.1 % (11.5-14.5); White Blood Cell Count 8.3 10^3/uL (4.8-10.8)
[2024-02-29 10:55] LABS: ALT (SGPT) 15 U/L (0-35); AST (SGOT) 20 U/L (14-36); Albumin 4.1 g/dl (3.5-5.0); Alkaline Phosphatase 64 U/L (38-126); Blood Urea Nitrogen 34 mg/dl (7-17); Calcium 9.8 mg/dl (8.4-10.2); Carbon Dioxide 26 mmol/L (22-30); Chloride 104 mmol/L (98-107); Estimated Creatinine Clearance 64 ml/min; Glucose 118 mg/dl (70-99); Potassium 4.1 mmol/L (3.5-5.1); Sodium 141 mmol/L (135-145); Total Bilirubin 0.2 mg/dl (0.2-1.3); Total Protein 7.4 g/dl (6.3-8.2); eGFR > 60.00
[2024-02-29 11:00] VITALS: BP 98/56
[2024-02-29] MEDS: DUONEB INH ×3 (11:48→20:09)
--- NOTE | 2024-02-29 12:00 | CARDSERVLU ---
Echocardiogram with Lumason completed after protocol screening completed. Allergies verified.
Patent IV site: _Rt hand___
IV site flushed with 0.9% NaCl pre and post administration.
Diluted bolus method utilized to enhance visualization of ventricular jimenez.
Total volume given: _3.0__ mL
Patient tolerated all procedures well without complications.
--- NOTE | 2024-02-29 13:38 | PN.CDI ---
Addendum entered and electronically signed by Mely Galan MD 02/29/24 14:42:
Localized Infection Only, Without Systemic Illness
Original Note:
CDI
- -
CDI:
Physician Documentation Request
Admit Date: 02/27/24 12:38
Dear Doctor Angelia,
Please review the following and provide your response in the progress notes.
Clinical Indicators:
PN, 02/28
#Acute hypoxic respiratory failure
#Patient had respiratory distress,
#...using accessory muscles with documented hypoxia.
#...oxygen requirement is down from Midflow to 4 liters O2
#likely aspiration PNA
Initial vital signs:
Selected Entries
02/27/24
10:16 02/27/24
10:26
Temp 99.4 F
Pulse 122
Resp Rate 25
Blood pressure 138/94
SaO2 89 88
Nasal Cannula flow liters per minute 6
Laboratory Tests
02/27/24 02/29/24
10:29 09:43
WBC 11.8 H 8.3
Please clarify which of the following most accurately describes the status of the patient's infection:
Sepsis/Severe Sepsis is/was present and is a clinical diagnosis based on (please include this additional support in the medical record)
Localized Infection Only, Without Systemic Illness
- indicate the site/source, such as UTI, pneumonia etc.
Bacteremia
- Abnormal lab finding only, does not indicate systemic illness
Other (please specify)
Sepsis
- Systemic manifestations of infection, with 2 or more SIRS criteria which include:
- Fever >100.4 degrees F or hypothermia < 96.8 degrees F
- Leukocytosis - WBC > 12,000 or leukopenia - WBC < 4,000 or > 10% bands
- Tachycardia > 90 beats per minute
- Tachypnea - RR > 20 breaths per minute or PaCO2 , 32mmHg
Source: Merck Manual 2013
- Indicate the known or suspected organism
- Indicate the known or suspected underlying infection, such as UTI, pneumonia or cellulitis
Severe Sepsis
- Sepsis with associated acute organ dysfunction, such as renal or respiratory failure
- Documentation should indicate the association between the sepsis and the organ dysfunction
Use of terms such as suspected, likely, concern for, or probable (associated with a specific diagnosis that is being evaluated, monitored, or treated as if it exists) are acceptable and can be coded in the inpatient setting, when documented at the
time of discharge.
Thank you,
Johana Harris RN BSN CCDS
CDI Specialist
please contact via tiger text
Please use your independent medical judgment in providing your response.
[2024-02-29 15:00] VITALS: BP 109/71
--- NOTE | 2024-02-29 16:20 | CM ---
Chart reviewed. Pt is a resident at [facility]
Cont to wean O2.
IV abx for another 24 hours then d/c per hospitalist
Return referral to facility completed in [facility]
Plan: Return to facility at d/c
[2024-02-29 19:05] VITALS: BP 120/67
[2024-02-29] MEDS: XALATAN OPHTHALMIC SOLUTION 1 DROP BOTH EYES (20:38)
[2024-02-29 23:18] VITALS: BP 119/66
[2024-03-01 03:00] VITALS: BP 133/81
[2024-03-01 07:00] VITALS: BP 128/81
[2024-03-01] MEDS: DUONEB INH ×2 (07:15→11:29)
[2024-03-01 09:07] VITALS: BP 128/81
[2024-03-01] MEDS: SENOKOT-S 1 TABLET PO (10:09)
[2024-03-01] MEDS: DELTASONE 30 MG PO (10:09)
[2024-03-01] MEDS: COSOPT EYE DROPS 1 DROP BOTH EYES (10:09)
[2024-03-01] MEDS: LIORESAL 20 MG PO (10:09)
[2024-03-01] MEDS: PROTONIX 20 MG PO (10:09)
[2024-03-01] MEDS: ELIQUIS 5 MG PO (10:09)
[2024-03-01] MEDS: STERILE WATER FOR INJECTION 10 ML IV (10:10)
[2024-03-01] MEDS: AZACTAM 1000 MG IV (10:10)
--- NOTE | 2024-03-01 10:45 | W.PN.PUL.V3 ---
Today's Communication / Plan
-
Finish antibiotics.
Wean oxygen..
Nebulizers, continue
Prednisone taper
Assessment
-
63-year-old female with a history of multiple sclerosis, asthma, dysphagia, neurogenic bladder and cognitive impairment who presented from custodial with respiratory distress, hypoxemia and wheezing-pulmonary consulted for wheezing/shortness of
breath 02/28/2024.
Aspiration pneumonia-in a custodial patient
Asthma with mild acute exacerbation
Bacteremia
Leukocytosis
Mild hyperglycemia
Metabolic acidosis
Conditions present prior to admission:
Recent hospitalization-discharged 11/27/2023-covid infection
Multiple sclerosis.
Essential quadriplegia.
skilled nursing patient-Ching Fagan.
Asthma.
Dysphagia.
Neurogenic bladder.
ADL dysfunction.
Hearing difficulties.
Glaucoma.
Plan
Respiratory decompensation likely due to bronchitis/early pneumonia with bacteremia
Supplemental oxygen-attempt to wean
Nebulizers-DuoNebs
Methylprednisolone 40 mg IV daily converted to oral prednisone
Aspiration precautions
Cultures reviewed
1/2 blood culture positive for coag negative staph
Influenza negative
MRSA screen negative
Unable to produce sputum
Empiric pvvxdrsrkpv-dajmewytd-pf'll discontinue after today's dose
Check procalcitonin--pending
Echocardiogram 02/29/24-EF 70-75%, no significant valvular disease
Follow radiographically
Follow leukocytosis and temperature curve-WBCs down and currently afebrile
DVT prophylaxis-on chronic Eliquis
GI prophylaxis-on pantoprazole
Nutrition with aspiration precautions
Bedside range of motion
Discharge planning
Reviewed with primary team and nursing
Diagnostic data:
Chest x-ray 11/25/2023-NAD
Chest x-ray 02/27/2024-low lung volumes, mild interstitial edema-proBNP negative
Subjective Data
-
Date of Service:
Date of Service: March 01, 2024
Chief Complaint: Pulmonary Follow Up and Dyspnea Follow Up
Subjective:
Feels better, denies any shortness of breath, chest pain, wheezing, productive cough
Review of Systems
General: Other ( per HPI)
Objective Data
Data Reviewed
Vital Signs / I&O:
Vital Signs
Temp Pulse Resp BP Pulse Ox
97.5 F 57 19 128/81 96
03/01/24 07:00 03/01/24 07:00 03/01/24 07:00 03/01/24 07:00 03/01/24 07:00
Intake and Output
02/29/24 03/01/24 03/02/24
06:59 06:59 06:59
Intake Total 300 / 300 170 / 170
Balance 300 / 300 170 / 170
SaO2: 96
Nasal Cannula flow liters per minute: 2
Physical Exam
General: Respiratory Distress (n) and Comfortable
HEENT: Normocephalic and Other (Alopecia)
Cardiovascular: Regular Rhythm
Respiratory: Wheeze (n), Crackles (Basilar), Rhonchi (n), Non-Labored Respirations, Accessory Resp Muscle Use (n) and Stridor
GI: Soft, Non Distended and Non Tender
Neurology: Awake, Alert and No Motor Deficits
Skin: Warm, Good Color, Cyanosis (n), Jaundice (n) and Rash (n)
Labs/Micro/Reports
Lab Data
02/29/24 09:43
02/29/24 09:43
Microbiology
02/27/24 12:53 Blood/Venous Blood Culture - Final
Coagulase neg. staphylococcus
Positive culture in progress
02/27/24 12:53 Blood/Venous Gram Stain - Final
02/28/24 11:42 Blood/Venous Blood Culture - Preliminary
No Growth in 24 hours- Final report to follow
02/27/24 18:47 Nose MRSA Screen - Final
No Methicillin Resistant Staphylococcus aureus isolated.
02/27/24 10:29 Nasal Swab Influenza Types A & B (JENNIFER) - Final
Negative for Influenza A & B, NAAT
Negative results must be combined with clinical observations
and patient history.
Nucleic Acid Amplification test (NAAT)performed on the
[employer] platform.
[2024-03-01 11:00] VITALS: BP 140/94
--- NOTE | 2024-03-01 11:07 | W.PN.HOSP.TC ---
Today's Communication/Plan
-
Finishing course of ABx today
Cant get blood, pt refuses ( hard to obtain access per staff)
dc planning, son wants a call about timing
Assessment / Plan
Assessment / Plan
Physical Exam
General: comfortable in bed, smiling, denies distress or pain
HEENT: Moist mucous membranes and Atraumatic
Respiratory: better and no rales or wheezes.
Cardiac: S1/S2 and Tachycardia
GI: Soft, Non Tender and Non Distended
Genito-urinary: No Guerrero
Musculoskeletal: No Cyanosis and No Edema
Skin: No Jaundice
Neuro: Awake , she answers simple questions/ she followed simple commands.
Psych: Calm and Apparent Dementia
63 years old female was sent from long-term for respiratory distress
#Acute hypoxic respiratory failure
Patient had respiratory distress, using accessory muscles with documented hypoxia.
oxygen requirement is down from Midflow to room air now.
likely aspiration PNA
CXR: Low lung volumes with increased bronchovascular markings bilaterally, which could represent mild interstitial edema. No focal airspace disease. No pleural effusions.
No rales or wheezes bilaterally on examination, significant improvement.
She finished 3 days of ABx.
Normal low proBNP, negative troponin. EKG nonspecific changes.
s/p IV steroid , now on oral prednisone.
c/w nebulizer treatment
Pt is known to have dysphagia and family is aware and wanted to c/w modified diet
Negative COVID and influenza screen
Consult pulmonary, appreciate input
# Bacteremia 02/26, c/w contaminant coagulase negative staph
repeat blood culture 02/27 no growth.
#Multiple sclerosis/ poor historian -Advanced
#Chronic nonambulatory status with contractures
# Functional Quadriplegia
- continue home Eliquis
-Continue baclofen 3 times daily
#Chronic Dysphagia hx
-Diet at long-term pur�ed nectar thickened liquid
#Neurogenic bladder hx
-Bladder scan and straight cath
#Glaucoma hx
Continue eyedrops
#Seasonal allergies
#Bilateral deafness hx
she seems to respond to questions
DVT prophylaxis
Subcutaneous c/w Eliquis
I updated her son about discharge
Total discharge time spent to see the patient on the floor, examine the patient, review data and lab results, discuss discharge plan with patient, her son, director case management, nursing staff around 69 minutes
Anticipated Discharge: Today
Subjective/Interval History
-
Date of Service: March 01, 2024
No fevers
No hypoxia
No cough
Objective Data
-
Vital Signs:
Vital Signs
Temp Pulse Resp BP Pulse Ox
97.5 F 57 19 128/81 96
03/01/24 07:00 03/01/24 07:00 03/01/24 07:00 03/01/24 07:00 03/01/24 10:45
I&O
02/29/24 03/01/24 03/02/24
06:59 06:59 06:59
Intake Total 300 / 300 170 / 170
Balance 300 / 300 170 / 170
--- NOTE | 2024-03-01 11:57 | CM ---
Per hospitalist pt can d/c today
Weaned off O2, no O2 needs for d/c
Abx completed today
Spoke w/ Regis and Dulce/Ching Fagan re pt d/c today, agreeable to return
Spoke w/ pt son re d/c today, agreeable to d/c. IMM reviewed, son denied need for a copy. Copy placed in chart
Ambulance transport scheduled for 2 pm
[facility]
Report: [phone]

Plan: Return to [facility] tank terminal gauger care unit
--- NOTE | 2024-03-01 14:23 | W.DCSUMMARY ---
Discharge Summary
Discharge Data
Date of Admission: 02/27/24
Date of Discharge: 03/01/24
-
Pending Results: No
Hospital Course
63 years old female was sent in from assisted with history of weakness and respiratory distress. Patient was found to have mild fever. Chest radiography did not show definitive infiltrate. Patient was diagnosed with aspiration pneumonitis
with asthma exacerbation. She was admitted to the hospital and received intravenous antibiotic. Blood culture initially showed positive culture but further data showed coagulase-negative staph infection and was considered as contaminant. Repeat
blood culture did not show any growth. COVID and influenza test were negative. MRSA screen was negative. Breathing status improved. She was able to maintain good saturation without need for oxygen supplementation. Negative troponin. Low
proBNP. Echocardiogram showed left ventricular ejection fraction of 70 to 75% with no significant valvular heart disease. Leukocytosis resolved. She did not have recurrent fever. Patient finished course of antibiotic. She was followed by
pulmonary doctor. She was given steroid therapy and she did well. She did not have further wheezes. She was discharged on tapering dose of prednisone. Patient remained hemodynamically stable. She was maintained on modified diet. Patient has
history of chronic dysphagia. Her son was updated. Patient was discharged back to assisted in a stable condition.
Discharge Plan
-
Patient Disposition: Acute Rehab Facility
Discharge Diagnosis/Procedures: Aspiration pneumonitis.
Asthma exaceration
Finished course of antibiotic. Will need 3 days of prednisone then stop. Follow with pulmonary doctor in office
Diet: As tolerated
Referrals:
Josh Romo DO [Family Provider] -
Tuan Way MD [Active] - in two to three weeks
Prescriptions:
New
prednisone 20 mg tablet
20 mg PO DAILY Qty: 3 0RF
Continued
latanoprost 0.005 % Drops
1 drp BOTH EYES HS
acetaminophen [Tylenol] 325 mg Tablet
650 mg PO Q4HPRN MDD 3000 mg PRN (Reason: mild pain,fever>100.4)
magnesium hydroxide [Milk of Magnesia] 400 mg/5 mL Suspension
30 ml PO HSPRN PRN (Reason: constipation)
baclofen 10 mg Tablet
20 mg PO TID
bisacodyl 10 mg Suppository
10 mg TN DAILYPRN PRN (Reason: 3 days no bm, mom ineffective)
dorzolamide-timolol 22.3-6.8 mg/mL Drops
1 drp BOTH EYES BID
montelukast 10 mg Tablet
10 mg PO HS
cholecalciferol (vitamin D3) 1,250 mcg (50,000 unit) capsule
1,250 mcg PO QMONTH
Rx Instructions:
on tuesday of the month
ipratropium-albuterol 0.5 mg-3 mg(2.5 mg base)/3 mL Solution For Nebulization
3 ml INHALATION R Q4HPRN PRN (Reason: cough/wheezing)
Eliquis 5 mg Tablet
5 mg PO BID
sennosides-docusate sodium 8.6-50 mg Tablet
1 tab-cap PO DAILY
pantoprazole 20 mg tablet,delayed release (DR/EC)
20 mg PO DAILY
Discharge Orders:
Discharge Patient (As Directed); Ordered 03/01/24
Ordered By: Mely Galan
Discharge Date and Time
Print Language: EAST TIMOR[place]
--- NOTE | 2024-03-01 14:59 | PTCARENOTE ---
leatha zaragoza [facility] (tel# [phone]) was notified of patient's discharge and report was provided. all concerns and questions were addressed.
== END 2024-03-01 14:48 | DRG 177 ==
LOC: 4 WEST ACU 12:38
PROVIDERS: ADMITTING PHYSICIAN Internal Medicine; CONSULT PHYSICIAN Internal Medicine Critical Care Medicine; EMERGENCY PHYSICIAN Emergency Medicine; FAMILY PHYSICIAN Student in an Organized Health Care Education/Training Program
DX: J69.0 Pneumonitis due to inhalation of food and vomit (principal); J96.01 Acute respiratory failure with hypoxia; R53.2 Functional quadriplegia; J45.901 Unspecified asthma with (acute) exacerbation; R78.81 Bacteremia; E87.20 Acidosis, unspecified; R73.9 Hyperglycemia, unspecified; F03.90 Unspecified dementia, unspecified severity, without behavioral disturbance, psychotic disturbance, mood disturbance, and anxiety; G35 Multiple sclerosis; R41.89 Other symptoms and signs involving cognitive functions and awareness; B95.7 Other staphylococcus as the cause of diseases classified elsewhere; H40.9 Unspecified glaucoma; N31.9 Neuromuscular dysfunction of bladder, unspecified; R13.10 Dysphagia, unspecified; H91.93 Unspecified hearing loss, bilateral; D72.829 Elevated white blood cell count, unspecified; Z60.2 Problems related to living alone; Z88.0 Allergy status to penicillin; Z88.8 Allergy status to other drugs, medicaments and biological substances; Z79.01 Long term (current) use of anticoagulants; Z86.16 Personal history of COVID-19; Z11.52 Encounter for screening for COVID-19
CPT/HCPCS: 71045; 80048; 80053; 81003; 82805; 83880; 84484; 85025; 85027; 87040; 87070; 87150; 87205; 87502; 87811; 93005; 93306; 94640; 96374; 99285

== ENCOUNTER → 2024-03-05 11:20 | Outpatient (REF) | payer MEDICARE, OTHER, SELFPAY ==
[2024-03-05 12:41] LABS: Hematocrit 38.6 % (37.0-47.0); Hemoglobin 12.4 g/dL (12.0-16.0); Mean Corp Hgb Conc. 32.1 g/dL (33.0-37.0); Mean Corpuscular Hgb 24.8 pg (27.0-31.0); Mean Corpuscular Volume 77.4 fL (81.0-99.0); Mean Platelet Volume 11.8 fL (7.4-10.4); Platelet Count 278 10^3/uL (130-400); Red Blood Cell Count 4.99 10^6/uL (4.20-5.40); Red Cell Dist. Width 16.2 % (11.5-14.5); White Blood Cell Count 11.8 10^3/uL (4.8-10.8)
[2024-03-05 13:24] LABS: % Basophils 0.1 % (0-2); % Eosinophils 0.8 % (0-6); % Immature Granulocytes 0.4 % (0-0.5); % Lymphocytes 46.3 % (20.5-51.1); % Monocytes 6.7 % (1.7-9.3); % Neutrophils 45.7 % (42.2-75.2); Absolute Eosinophils 0.1 10^3/uL (0-0.7); Absolute Immature Granulocytes 0.1 10^3/uL (0-0.05); Absolute Lymphocytes 5.5 10^3/uL (1.2-3.4); Absolute Monocytes 0.8 10^3/uL (0.1-0.6); Absolute Neutrophils 5.4 10^3/uL (1.4-6.5); Nucleated Red Blood Cells % 0 %
== END ==
LOC: OLABN 11:20
PROVIDERS: ATTENDING PHYSICIAN Student in an Organized Health Care Education/Training Program
DX: R09.02 Hypoxemia (principal)
CPT/HCPCS: 36415; 85025

== ENCOUNTER → 2024-03-06 10:27 | Outpatient (REF) | payer MEDICARE, OTHER, SELFPAY ==
[2024-03-06 10:52] LABS: ALT (SGPT) 13 U/L (0-35); AST (SGOT) 15 U/L (14-36); Albumin 3.5 g/dl (3.5-5.0); Alkaline Phosphatase 60 U/L (38-126); Blood Urea Nitrogen 16 mg/dl (7-17); Calcium 8.9 mg/dl (8.4-10.2); Carbon Dioxide 27 mmol/L (22-30); Chloride 104 mmol/L (98-107); Glucose 80 mg/dl (70-99); Potassium 4.5 mmol/L (3.5-5.1); Sodium 139 mmol/L (135-145); Total Bilirubin 0.2 mg/dl (0.2-1.3); Total Protein 6.5 g/dl (6.3-8.2); eGFR > 60.00
== END ==
LOC: OLABN 10:27
PROVIDERS: ATTENDING PHYSICIAN Student in an Organized Health Care Education/Training Program
DX: R09.02 Hypoxemia (principal)
CPT/HCPCS: 36415; 80053

== ENCOUNTER → 2024-07-25 11:21 | Outpatient (REF) | payer MEDICARE, OTHER, SELFPAY ==
[2024-07-25 12:14] LABS: Hematocrit 36.4 % (37.0-47.0); Hemoglobin 11.9 g/dL (12.0-16.0); Mean Corp Hgb Conc. 32.7 g/dL (33.0-37.0); Mean Corpuscular Hgb 25.4 pg (27.0-31.0); Mean Corpuscular Volume 77.6 fL (81.0-99.0); Mean Platelet Volume 11.5 fL (7.4-10.4); Platelet Count 285 10^3/uL (130-400); Red Blood Cell Count 4.69 10^6/uL (4.20-5.40); White Blood Cell Count 6.3 10^3/uL (4.8-10.8)
[2024-07-25 12:28] LABS: Blood Urea Nitrogen 16 mg/dl (7-17); Calcium 9.2 mg/dl (8.4-10.2); Carbon Dioxide 23 mmol/L (22-30); Chloride 106 mmol/L (98-107); Glucose 86 mg/dl (70-99); HDL Cholesterol 34 mg/dl; LDL Cholesterol, Calculated 185 mg/dl; Potassium 4.8 mmol/L (3.5-5.1); Sodium 140 mmol/L (135-145); Total Cholesterol 248 mg/dl (50-199); Triglyceride 145 mg/dl (10-149); Very Low Density Lipoprotein 29 mg/dl (0-30); eGFR > 60.00
[2024-07-25 12:44] LABS: Vitamin D, 25-OH*** 41.4 ng/mL (30-80)
[2024-07-25 12:57] LABS: TSH 4.04 uIU/ml (0.47-4.68)
== END ==
LOC: OLABN 11:21
PROVIDERS: ATTENDING PHYSICIAN Student in an Organized Health Care Education/Training Program
DX: E55.9 Vitamin D deficiency, unspecified (principal); G35 Multiple sclerosis; Z79.899 Other long term (current) drug therapy; E87.20 Acidosis, unspecified; J96.01 Acute respiratory failure with hypoxia
CPT/HCPCS: 36415; 80048; 80061; 82306; 84443; 85027

== ENCOUNTER → 2025-01-23 10:26 | Outpatient (REF) | payer MEDICARE, OTHER, SELFPAY ==
[2025-01-23 11:15] LABS: Hematocrit 37.4 % (37.0-47.0); Hemoglobin 12.3 g/dL (12.0-16.0); Mean Corp Hgb Conc. 32.9 g/dL (33.0-37.0); Mean Corpuscular Volume 75.7 fL (81.0-99.0); Nucleated Red Blood Cells % 0 %; Platelet Count 278 10^3/uL (130-400); Red Cell Dist. Width 15.5 % (11.5-14.5)
[2025-01-23 11:40] LABS: ALT (SGPT) 11 U/L (0-35); AST (SGOT) 17 U/L (14-36); Albumin 4.0 g/dl (3.5-5.0); Alkaline Phosphatase 92 U/L (38-126); Blood Urea Nitrogen 19 mg/dl (7-17); Calcium 9.0 mg/dl (8.4-10.2); Carbon Dioxide 21 mmol/L (22-30); Chloride 106 mmol/L (98-107); Glucose 92 mg/dl (70-99); Potassium 4.3 mmol/L (3.5-5.1); Sodium 139 mmol/L (135-145); Total Protein 7.7 g/dl (6.3-8.2); eGFR > 60.00
== END ==
LOC: OLABN 10:26
PROVIDERS: ATTENDING PHYSICIAN Student in an Organized Health Care Education/Training Program
DX: R05.9 Cough, unspecified (principal)
CPT/HCPCS: 36415; 80053; 83880; 85025

== ENCOUNTER 2025-02-15 02:14 | Inpatient (IN) | payer MEDICARE, OTHER, SELFPAY ==
[2025-02-14 22:11] VITALS: BP 107/59
[2025-02-14 22:37] LABS: Hematocrit 39.1 % (37.0-47.0); Hemoglobin 12.8 g/dL (12.0-16.0); Mean Corp Hgb Conc. 32.7 g/dL (33.0-37.0); Mean Corpuscular Volume 75.8 fL (81.0-99.0); Nucleated Red Blood Cells % 0 %; Platelet Count 283 10^3/uL (130-400); Red Cell Dist. Width 15.7 % (11.5-14.5)
[2025-02-14] MEDS: OFIRMEV 1000 MG IV (22:39)
[2025-02-14 22:40] VITALS: BP 106/55
[2025-02-14] MEDS: NSS 1000 IV ×2 (22:40→23:37)
[2025-02-14 22:47] LABS: INR 1.10; PT 14.7 Sec (11.4-14.6)
[2025-02-14 22:52] LABS: ALT (SGPT) 20 U/L (0-35); AST (SGOT) 23 U/L (14-36); Albumin 3.8 g/dl (3.5-5.0); Alkaline Phosphatase 100 U/L (38-126); Blood Urea Nitrogen 9 mg/dl (7-17); Calcium 9.3 mg/dl (8.4-10.2); Carbon Dioxide 22 mmol/L (22-30); Chloride 103 mmol/L (98-107); Glucose 174 mg/dl (70-99); Potassium 4.2 mmol/L (3.5-5.1); Sodium 130 mmol/L (135-145); Total Protein 7.4 g/dl (6.3-8.2); eGFR > 60.00
[2025-02-14 22:54] LABS: Urine Character Clear (Clear)
[2025-02-14 23:00] VITALS: BP 92/54
[2025-02-14 23:25] LABS: COVID-19 Antigen Negative (Negative)
[2025-02-14 23:30] VITALS: BP 92/48
[2025-02-14] MEDS: FLAGYL 500 MG 100 IV (23:39)
[2025-02-14] MEDS: AZACTAM 2000 MG IV (23:40)
[2025-02-15] VITALS (25 sets, daily range): BP systolic 82–145; BP diastolic 47–88; BMI 27.3
--- NOTE | 2025-02-15 00:37 | ED.GENMED ---
History of Present Illness
General
Chief Complaint: Fever
Source: patient, ambulance crew, senior care records and previous hospital records
Exam Limitations: clinical condition and non verbal-adult
Time Seen by Provider: 02/14/25 22:11
Nursing documentation reviewed up to this point in time: agreed with
History of Present Illness
History of Present Illness:
Note:
CHIEF COMPLAINT(S)
Fever. History is limited as patient is nonverbal
HISTORY OF PRESENT ILLNESS
The patient is a 64-year-old female residing in a senior care, specifically in the dementia unit of [facility], with a background of multiple sclerosis. During her routine care, the staff noted that she was febrile. Her baseline is being
non-verbal, and her usual mental status was reported to be consistent with her normal by the senior care staff. Upon arrival, her temperature was recorded at 102.1�F.
CHRONIC MEDICAL CONDITIONS SIGNIFICANTLY AFFECTING CARE
- Multiple Sclerosis
- Dementia
- Asthma
- Neurogenic Bladder
- Hyperlipidemia
- Quadriplegia
SOCIAL DETERMINANTS AFFECTING HEALTH
The patient resides in a senior care dementia unit.
REVIEW OF SYSTEMS
- General: Reports of fever
- Neurological: Non-verbal at baseline
PHYSICAL EXAM
- General: Alert, no acute distress.
- Skin: Warm, dry.
- Head: Normocephalic, atraumatic.
- Neck: Supple, trachea midline.
- Eyes, Ears, Nose, Mouth, and Throat: Oral mucosa moist.
- Cardiovascular: Normal peripheral perfusion, No edema.
- Respiratory: Respirations are non-labored.
- Gastrointestinal: Abdomen nondistended.
- Back: Normal range of motion, Normal alignment.
- Musculoskeletal: Normal range of motion, normal strength.
- Neurological: Alert and oriented to person, place, time, and situation, No focal neurological deficit observed.
- Psychiatric: Cooperative, appropriate mood & affect.
DIFFERENTIAL DIAGNOSIS
The Differential Diagnosis includes, in no particular order and is not limited to:
1. Urinary Tract Infection ruled out
2. Pneumonia not seen on x-ray
3. Aspiration Pneumonia
4. Sepsis
5. Viral Infection
6. Multiple Sclerosis Flare
7. Neurogenic Fever
8. Cellulitis
9. Hospital-Acquired Infection
10. Meningitis
Disposition:
SUMMARY OF ENCOUNTER
The patient is a 64-year-old female from a senior care who presented to the emergency department with a fever and no other complaints. She is non-verbal and at her baseline. Empiric antibiotics were administered to address potential infectious
causes of fever. Given her condition and medical history, it was decided to admit her to the hospital for further evaluation and management.
DISPOSITION
Admit
ASSESSMENT
This patient presents with fever of unknown origin in the setting of multiple comorbidities. Differential diagnoses include urinary tract infection, pneumonia, aspiration pneumonia, sepsis, viral infection, multiple sclerosis flare, neurogenic
fever, cellulitis, hospital-acquired infection, or meningitis.
EMERGENCY TREATMENTS ADMINISTERED
Empiric antibiotics were administered.
MEDICAL DECISION MAKING
-Complexity of Data Reviewed: Chronic conditions affecting care include: multiple sclerosis, dementia, asthma, neurogenic bladder, hyperlipidemia, and quadriplegia.
-Data:
Category 1
Clinical information was obtained from an independent historian based on the patient�s non-verbal status and from senior care staff.
-Risk: Patient has significant risk given her presenting complaint of fever in combination with her multiple chronic conditions, necessitating hospital admission for further evaluation and management.
DIAGNOSIS
Fever, unspecified (R50.9), Suspected infection (R99).
Past History
Past History
ED Past Medical History: Other (Multiple sclerosis, asthma, dysphagia, neurogenic bladder, hearing difficulties, glaucoma)
Social History
Tobacco: Non-smoker
Phy Exam
Physical Exam
Physical Exam:
.
Sepsis
Sepsis Screening
Sepsis Assessment: Sepsis
Sepsis Screen
Sepsis Screen: Sepsis
Date: 02/15/25
Time: 00:42
Course
Orders/Labs/Results
Orders:
Orders
02/14/25 22:20
Electrocardiogram (*1) Urgent
Reason for Study: Other
Other Reason for Exam: Possible Sepsis
Straight cath- Treatment ONCE
CR Chest Portable - 1 View Urgent
Comment:
Reason For Exam: febrile
Reason Study Needs to be Portable: Patient Unstable
O2 Therapy [RESP] Urgent
Titrate/Wean O2 to maintain O2 sat greater than (%): 93
Special Instructions: TO MAINTAIN CONTINUOUS O2 SATS > OR = 93%
Pulse Ox/cont/shift [RESP] Urgent
Quantity: 1
Special Instructions: CONTINUOUS
02/14/25 22:21
EKG- Treatment ONCE
02/14/25 22:22
Complete Blood Count/With Diff Urgent
Comprehensive Metabolic Panel Urgent
Lactic Acid Q4H
Comment: ON ICE, CANCEL 2ND ORDER IF FIRST LACTIC ACID LEVEL <2
Prothrombin Time Urgent
Urinalysis Reflex To Culture Urgent
Date Specimen was Collected: 02/14/25
Time Specimen was Collected: 22:21
Blood Culture Q20M
IRENE Source: Blood/Venous
Specimen Description:
Comment: Urgent from separate sites. If patient screens positive for possible sepsis
Blood Culture Q20M
IRENE Source: Blood/Venous
Specimen Description:
Comment: Urgent from separate sites. If patient screens positive for possible sepsis
02/14/25 22:27
Acetaminophen 1000MG/100Ml [Ofirmev] 1,000 mg in 100 ml .ROUTE .STK-MED
02/14/25 22:38
Acetaminophen 1000MG/100Ml [Ofirmev] 1,000 mg IV NOW STA
02/14/25 22:39
0.9% Sodium Chloride 1000 ml [Nss] 1,000 ml IV BOLUS
02/14/25 23:03
COVID-19 Antigen Urgent
Source: Nasal Swab
Influenza A+B Rapid Molecular Urgent
IRENE Source: Nasal Swab
Specimen Description:
02/14/25 23:06
0.9% Sodium Chloride 1000 ml [Nss] 1,000 ml IV BOLUS
Vancomycin [Vancocin] 1,500 mg 0.9% Sodium Chloride 500 ml [Nss] 500 ml IV NOW
02/14/25 23:09
Aztreonam [Azactam] 2,000 mg IV NOW STA
MetroNIDAZOLE 500 MG/100 ML [Flagyl 500 mg] 100 ml IV NOW
02/14/25 23:39
Sterile Water [Sterile Water For Injection] 10 ml .ROUTE .[facility]
Abnormal Lab Results
02/14/25
22:22
WBC 15.0 H 10^3/uL
(4.8-10.8)
MCV 75.8 L fL
(81.0-99.0)
MCH 24.8 L pg
(27.0-31.0)
MCHC 32.7 L g/dL
(33.0-37.0)
RDW 15.7 H %
(11.5-14.5)
MPV 10.5 H fL
(7.4-10.4)
Abs Immat Gran (auto) 0.2 H 10^3/uL
(0-0.05)
Absolute Neuts (auto) 13.3 H 10^3/uL
(1.4-6.5)
Absolute Lymphs (auto) 0.8 L 10^3/uL
(1.2-3.4)
Absolute Monos (auto) 0.7 H 10^3/uL
(0.1-0.6)
Immature Gran % 1.0 H %
(0-0.5)
Neutrophils % 88.5 H %
(42.2-75.2)
Lymphocytes % 5.5 L %
(20.5-51.1)
PT 14.7 H Sec
(11.4-14.6)
Sodium 130 L mmol/L
(135-145)
Creatinine 0.5 L mg/dL
(0.6-1.0)
Glucose 174 H mg/dl
(70-99)
02/14/25 22:22
02/14/25 22:22
Vital Signs
Initial and Last Documented VS:
Initial Vital Signs
Temp Pulse Resp BP Pulse Ox
102.1 F H 152 26 107/59 92
02/14/25 22:11 02/14/25 22:11 02/14/25 22:11 02/14/25 22:11 02/14/25 22:11
Last Documented Vital Signs
Temp Pulse Resp BP Pulse Ox
102.1 F H 113 15 91/49 96
02/14/25 22:11 02/15/25 00:00 02/15/25 00:00 02/15/25 00:00 02/15/25 00:39
*Pulse Oximetry
SaO2: 96
Oxygen Mode of Delivery: Room air
Patient hypoxic: no
*Critical Care Note
Total Time (30-74mins, 75-104mins- exclusive of procedures): Not Applicable
ED Attending Note
-
Portions of this chart may have been created with voice recognition software.� Occasional wrong word or��sound alike� substitutions may have occurred due to the inherent limitations of voice recognition software.
Discharge Plan
Departure
Patient Disposition: Admit
Date of Disposition: 02/15/25
Time of Disposition: 00:37
Admit to: Telemetry
Presentation/result/management discussed w/ accepting MD/DO: Hospitalist
Condition: Fair
Discharge Problem:
Functional quadriplegia, Fever, Multiple sclerosis
Prescriptions:
No Action
latanoprost 0.005 % Drops
1 drp BOTH EYES HS
acetaminophen [Tylenol] 325 mg Tablet
650 mg PO Q4HPRN MDD 3000 mg PRN (Reason: mild pain,fever>100.4)
magnesium hydroxide [Milk of Magnesia] 400 mg/5 mL Suspension
30 ml PO HSPRN PRN (Reason: constipation)
baclofen 10 mg Tablet
20 mg PO TID
bisacodyl 10 mg Suppository
10 mg CO DAILYPRN PRN (Reason: 3 days no bm, mom ineffective)
dorzolamide-timolol 22.3-6.8 mg/mL Drops
1 drp BOTH EYES BID
montelukast 10 mg Tablet
10 mg PO HS
cholecalciferol (vitamin D3) 1,250 mcg (50,000 unit) capsule
1,250 mcg PO QMONTH
Rx Instructions:
on tuesday of the month
ipratropium-albuterol 0.5 mg-3 mg(2.5 mg base)/3 mL Solution For Nebulization
3 ml INHALATION R Q4HPRN PRN (Reason: cough/wheezing)
Eliquis 5 mg Tablet
5 mg PO BID
sennosides-docusate sodium 8.6-50 mg Tablet
1 tab-cap PO DAILY
pantoprazole 20 mg tablet,delayed release (DR/EC)
20 mg PO DAILY
prednisone 20 mg tablet
20 mg PO DAILY Qty: 3 0RF
Referrals:
Josh Romo DO [Family Provider, Family Practice]
Interventions
Interventions:
*Risk Screen - Suicide Last Done: 02/14/25 22:11
*General Assessment Last Done: 02/14/25 22:11
*Neglect/Abuse Screening Last Done: 02/14/25 22:11
*ED COVID-19 Vaccine History Last Done: 02/14/25 22:11
*ED Influenza Vaccine History Last Done: 02/14/25 22:11
ED- Neurological Assessment Last Done: 02/14/25 22:15
ED-Skin Assessment Last Done: 02/14/25 22:15
Discharge Date and Time
Print Language: PORTUGUESE
[2025-02-15] MEDS: NSS 1000 IV ×4 (01:16→23:20)
[2025-02-15] MEDS: VANCOCIN 530 MG IV (01:46)
--- NOTE | 2025-02-15 02:03 | HPS.HSE ---
Family Physician
-
Family Physician: Josh Romo DO
Chief Complaint
-
Fever
History of Present Illness
Patient is a 64y F with PMH significant for MS and quadriplegia who presents to ED from local [facility] for evaluation of fever. History obtained from patient, ED staff and NH record. Patient 'felt warm' during evening rounds at the [facility]. Vitals were
checked and she was noted to have fever to 103 and tachycardia in the 120s. She was sent to the ED for further evaluation. In the ED patient had fever, tachycardia and leukocytosis. No clear origin / source of infection was discovered.
At the time of my examination patient is awake and alert. She complains of 'pain all over'. She cannot state when her symptoms began. She specifically denies any cough, shortness of breath, N/V/D, etc.
Prior records indicate 'neurogenic bladder' - though patient does not have urinary catheter in place.
Prior records also indicate that she is 'non-verbal at baseline' which is clearly incorrect.
Medical History
Past Medical History
Past Medical History: Reports Other
Additional Past Medical History:
Multiple Sclerosis
Quadriplegia secondary to the above
Glaucoma
Dementia
Neurogenic Bladder (?)
Asthma
History of VTE
History of aspiration / pneumonitis
Past Surgical History: Reports Other
Additional Past Surgical History:
None known
Social History
Tobacco: Non-smoker
Alcohol: None
Drug: None
Family History
Family History: Not pertinent
Allergies / Home Medications
Allergies reflects when Allergies were last updated in [facility].
Home Medications with original date entered in [facility]
Allergy/Medication List:
Allergies
Allergy/AdvReac Type Severity Reaction Status Date / Time
Penicillins Allergy Hives. Verified 02/14/25 22:11
Tolerates
cephalosporins.
zolpidem (From Ambien) Allergy Unknown Verified 02/14/25 22:11
Home Medications
acetaminophen 325 mg tablet (Tylenol) 650 mg PO Q4HPRN PRN mild pain,fever>100.4 04/19/22
baclofen 10 mg tablet 20 mg PO TID Muscle spasms 04/19/22
bisacodyl 10 mg rectal suppository 10 mg WA DAILYPRN PRN 3 days no bm, mom ineffective 04/19/22
cholecalciferol (vitamin D3) 1,250 mcg (50,000 unit) capsule 1,250 mcg PO QMONTH Supplement 04/19/22
dorzolamide 22.3 mg-timolol 6.8 mg/mL eye drops 1 drp BOTH EYES BID Eye condition 04/19/22
latanoprost 0.005 % eye drops 1 drp BOTH EYES HS Eye condition 04/19/22
magnesium hydroxide 400 mg/5 mL oral suspension (Milk of Magnesia) 30 ml PO HSPRN PRN constipation 04/19/22
montelukast 10 mg tablet 10 mg PO HS Allergies 04/19/22
apixaban 5 mg tablet (Eliquis) 5 mg PO BID Blood Clot Prevention/Tx 11/25/23
ipratropium 0.5 mg-albuterol 3 mg (2.5 mg base)/3 mL nebulization soln 3 ml inhalation R Q4HPRN PRN cough/wheezing 11/25/23
sennosides 8.6 mg-docusate sodium 50 mg tablet 1 tab-cap PO DAILY Constipation 02/27/24
atorvastatin 20 mg tablet (Lipitor) 20 mg PO DAILY 02/15/25
famotidine 20 mg tablet 20 mg PO DAILY 02/15/25
Review of Systems
-
History Source: Patient
A 12 point ROS was completed and negative except as noted: Yes
Constitutional: Reports Fever; Denies Chills
EENT: Denies Sore Throat
Respiratory: Denies Cough or Trouble Breathing
Cardiac: Denies Chest Pain or Palpitations
Abdomen/GI: Denies Abdominal Pain, Nausea, Vomiting or Diarrhea
: Reports Incontinence; Denies Dysuria or Frequency
Musculoskeletal: Reports Joint Pain and Muscle Pain
Neurological: Reports Headache; Denies Dizzy
Psych: Denies Depression or Anxiety
Physical Exam
Vital Signs
Vital Signs
Temp Pulse Resp BP Pulse Ox
98.9 F 96 15 90/49 96
02/15/25 00:00 02/15/25 01:45 02/15/25 01:45 02/15/25 01:30 02/15/25 01:45
Physical Exam
General: Other (Chronically ill-appearing 64y F in no acute distress.)
HEENT: Other (Dry MM. Neck supple.)
Respiratory: Other (Few coarse breath sounds on the R. No wheezing / rales.)
Cardiac: S1/S2 and Tachycardia; No Murmur
GI: Soft, Non Tender, Non Distended and Normal Bowel Sounds
Genito-urinary: No costovertebral tender
Musculoskeletal: No Clubbing, No Cyanosis and No Edema
Skin: Other (No evidence of skin breakdown, ulcers, etc.)
Neuro: Awake, Alert and Other (Quadriplegia with limb contractures - chronic.)
Laboratory Results
-
02/14/25 22:22
02/14/25 22:22
Laboratory Results
PT 14.7 Sec (11.4-14.6) H 02/14/25 22:22
INR 1.10 02/14/25 22:22
Lactic Acid 1.5 mmol/L (0.7-2.0) 02/14/25 22:22
Total Bilirubin 0.5 mg/dl (0.2-1.3) 02/14/25 22:22
AST 23 U/L (14-36) 02/14/25 22:22
ALT 20 U/L (0-35) 02/14/25 22:22
Alkaline Phosphatase 100 U/L (38-126) 10/30/25 22:22
Impression/Plan
-
A/P: Patient is a 64y F with PMH significant for MS and quadriplegia who presents to ED for evaluation of fever.
Sepsis - Unknown Origin
- Admit for further evaluation and treatment.
- Patient presents with fever, tachycardia and leukocytosis. Unclear etiology / origin of symptoms at present.
- ? aspiration event given prior history, coarse breath sounds on exam - though CXR unimpressive on admission.
- Aspiration precautions. Speech evaluation (pureed with thin liquids at [facility]).
- Cover with empiric abx for now (Vanco / Cefepime) pending culture data, new symptoms, etc.
- COVID / flu negative in the ED. UA is unremarkable.
- Abdomen is soft and not tender on exam.
- Supportive care including antipyretics, IVFs, etc.
- Follow fever curve.
- BP improved with IVFs in the ED. Continue IVFs +/- pressors if needed to maintain perfusion.
Multiple Sclerosis
Quadriplegia / Chronic Contractures
- Stable. Continue supportive care / offloading / pressure supports / etc.
- Continue baclofen.
Asthma without Acute Exacerbation
- No SOB, cough or wheezing appreciated.
- Continue Singulair.
- Nebs PRN.
Glaucoma
- Continue current eye drop regimen.
Dementia
- Stable. Monitor for any acute agitation / delirium during hospital stay.
DVT Prophylaxis: Continue Eliquis which she is on for prior h/o DVT / PE.
Code Status: Full
[2025-02-15] MEDS: NSS 500 IV (03:31)
[2025-02-15] MEDS: FLUSH (NSS) 1 FLUSH IV (03:39)
[2025-02-15] MEDS: MAXIPIME 2000 MG IV ×3 (04:21→17:55)
[2025-02-15] MEDS: STERILE WATER FOR INJECTION 10 ML IV ×3 (04:21→17:55)
[2025-02-15 05:40] LABS: Hematocrit 31.4 % (37.0-47.0); Hemoglobin 10.3 g/dL (12.0-16.0); Mean Corp Hgb Conc. 32.8 g/dL (33.0-37.0); Mean Corpuscular Volume 76.0 fL (81.0-99.0); Platelet Count 266 10^3/uL (130-400); Red Cell Dist. Width 15.7 % (11.5-14.5)
[2025-02-15 05:54] LABS: ALT (SGPT) 17 U/L (0-35); AST (SGOT) 21 U/L (14-36); Albumin 2.6 g/dl (3.5-5.0); Alkaline Phosphatase 69 U/L (38-126); Blood Urea Nitrogen 7 mg/dl (7-17); Calcium 7.8 mg/dl (8.4-10.2); Carbon Dioxide 19 mmol/L (22-30); Chloride 112 mmol/L (98-107); Estimated Creatinine Clearance 78 ml/min; Glucose 129 mg/dl (70-99); Potassium 4.0 mmol/L (3.5-5.1); Sodium 134 mmol/L (135-145); Total Protein 5.5 g/dl (6.3-8.2); eGFR > 60.00
--- NOTE | 2025-02-15 06:04 | PTCARENOTE ---
rec'd pt from ER. CHG bath complete. pt able to make needs known, vocalizes pain when turning. contractures noted to both upper and lower extremities. oriented to self. afebrile at this time. SR on monitor. on RA, O2 sat 96%. NPO. pt incontinent,
purewick placed. protective foam applied to sacrum. IVF infusing through PIV. pt with own air heel boots on. care ongoing.
--- NOTE | 2025-02-15 08:03 | PHA.VAN.IN ---
Assessment
- Assessment
Renal Function: Appears similar to baseline
Concomitant Antimicrobials: cefepime
- Previous Dosing Experience
Previous Regimen: Vanc 750mg Q12H
Date of Regimen: December 2023
Provided Trough of: 18.4
Patient's SCR is: Similar to previous dosing experience
Patient's weight is: Similar to previous dosing experience
Peak was drawn late and may have underestimated true Peak/Cmax and AUC while overestimating half-life
Extrapolated Cmax (mcg/mL): 33.9
Peak level was drawn: More than 3 hours after previous dose (drawn ~4.9H after end of previous infusion)
Extrapolated Cmin (mcg/mL): 17.7
Trough Drawn: Appropriately
Levels were drawn: At steady state (levels drawn after 4th maintenance dose)
Calculated AUC (mcg*h/mL): 599
Calculated ke: 0.0592
Calculated half life (H): 11.7
Calculated Vd (L): 42 (~0.6 L/kg)
Calculated Vanc CL (ml/min): 42
AUC Dosing Plan
- Empiric Dosing
Initial / Loading Dose: 1500mg - 02/15 01:46
Maintenance Regimen: Vanc 500mg Q12H starting at 1800 based on prior dosing experience
- Monitoring
No levels ordered at this time: consider levels in next few days
MRSA Screen: Ordered per protocol
Pharmacokinetics Vancomycin I
- -
Patient Age: 64
Patient Sex: Female
Vancomycin Day #: 1
Indication: Bacteremia
Requesting Provider: Dr. Hillman
Pertinent Antimicrobial Allergies:
penicillins - hives, tolerates cephalosporins
Height / Weight:
Height 5 ft
Actual Weight 63.4 kg
Pertinent Past Medical History: MS, quadriplegia
- Vital Signs / Lab Results
Temp Pulse Resp BP Pulse Ox
98.2 F 77 11 96/67 96
02/15/25 07:29 02/15/25 06:00 02/15/25 06:00 02/15/25 06:00 02/15/25 06:00
Lab Results - Hematology
02/14/25 02/15/25
22:22 05:27
WBC 15.0 H 27.9 H
Lab Results - Chemistry
02/14/25 02/15/25
22:22 05:27
BUN 9 7
Creatinine 0.5 L 0.4 L
Estimated Creat Clear 78
Albumin 3.8 2.6 L
02/14/25
22:22
Lactic Acid 1.5
Lab Results - Urine
02/14/25
22:22
Urine Nitrite (Reflex) Negative
Leukocyte Esterase Rfl Negative
Microbiology Results
02/14/25 23:03 Influenza Types A & B (JENNIFER) - Final
Nasal Swab Negative for Influenza A & B, NAAT
Negative results must be combined with clinical observations
and patient history.
Nucleic Acid Amplification test (NAAT)performed on the
[employer] platform.
--- NOTE | 2025-02-15 09:05 | PTOTSP ---
Speech Language Pathology
Pt seen for clinical bedside swallow evaluation. Has been on puree/mildly thick liquids since at least April 2022. No prior instrumental swallowing assessments completed at [facility]. Pt stated she has not had a VSE or FEES elsewhere, unsure if
accurate. P.O. trials of puree and mildly thick liquids via straw provided. Minimal accepted given dislike. Adequate oral phase with limited trials provided. No overt signs of aspiration.
Recommend:
(1) Initiate baseline diet of IDDSI Level 4 (Puree) and Mildly thick liquids
(2) Aspiration precautions: full assist, slow rate, single sip
(3) Meds crushed in puree (this is baseline)
(4) Will consider flexible endoscopic evaluation of swallowing (FEES) once medical status improved to see if chronic modified diet indicated
(5) INSTRUMENTATION ENGINEERING TECHNICIAN to continue to follow
[2025-02-15] MEDS: LIORESAL 20 MG PO ×3 (09:24→23:21)
[2025-02-15] MEDS: PEPCID 20 MG PO (09:25)
[2025-02-15] MEDS: ELIQUIS 5 MG PO ×2 (09:25→20:41)
[2025-02-15] MEDS: LIPITOR 20 MG PO (09:25)
[2025-02-15] MEDS: TRUSOPT 2% OPHTHALMIC SOLUTION 1 DROP BOTH EYES ×2 (09:41→20:47)
[2025-02-15] MEDS: TIMOPTIC 0.25% OPHTHALMIC SOLUTION 1 DROP BOTH EYES ×2 (09:41→20:48)
--- NOTE | 2025-02-15 10:19 | W.PN.HOSP.TC ---
Today's Communication/Plan
-
cont ivf
cont iv abx
follow temperature curve
Follow-up on blood culture
add on pro toñito
transfer to tele
Assessment / Plan
Assessment / Plan
64y F with PMH significant for MS and quadriplegia who presents to ED for evaluation of fever.
#Sepsis - Unknown Origin
- Fever, tachycardia and leukocytosis on arrival. Unclear etiology / origin of symptoms at present. WBC count increased to 27 from initial 15
- coarse breath sounds on exam on arrival - though CXR unimpressive on admission. exam today clear
- Aspiration precautions. Speech evaluation (pureed with thin liquids at [place]).
- Cover with empiric abx for now (Vanco / Cefepime) pending culture data, new symptoms, etc.
- COVID / flu negative in the ED. UA is unremarkable.
- Abdomen is soft and not tender on exam.
- Supportive care including antipyretics, IVFs, etc. consider d/c ivf if able to tolerate diet
- Follow fever curve.
- BP improved with IVFs in the ED. Continue IVFs +/- pressors if needed to maintain perfusion.
- check pro toñito
- transfer to tele
# Corrected calcium is 8.9 today
# Mild hyponatremia
- Improved with IV fluids
#Multiple Sclerosis
Quadriplegia / Chronic Contractures
- Stable. Continue supportive care / offloading / pressure supports / etc.
- Continue baclofen.
#Asthma without Acute Exacerbation
- No SOB, cough or wheezing appreciated.
- Continue Singulair.
- Nebs PRN.
#Glaucoma
- Continue current eye drop regimen.
#Dementia
- Stable. Monitor for any acute agitation / delirium during hospital stay.
DVT Prophylaxis: Continue Eliquis which she is on for prior h/o DVT / PE.
Code Status: Full
Anticipated Discharge: 24 - 48 hours
Subjective/Interval History
-
Date of Service: February 15, 2025
temp of 102.1F on arrival last night; however patient states she has no fever. Offers no complaints. Specifically denied any chest pain, abdominal pain, body pain, trouble breathing.
Objective Data
-
Labs:
Laboratory Results
02/14/25 02/15/25
22:22 05:27
WBC 15.0 H 27.9 H
Hgb 12.8 10.3 L
Hct 39.1 31.4 L
Plt Count 283 266
PT 14.7 H
INR 1.10
Sodium 130 L 134 L
Potassium 4.2 4.0
Chloride 103 112 H
Carbon Dioxide 22 19 L
BUN 9 7
Creatinine 0.5 L 0.4 L
Glucose 174 H 129 H
Calcium 9.3 7.8 L D
Total Bilirubin 0.5 0.5
AST 23 21
ALT 20 17
Alkaline Phosphatase 100 69
Vital Signs:
Vital Signs
Temp Pulse Resp BP Pulse Ox
98.2 F 77 11 96/67 96
02/15/25 07:29 02/15/25 06:00 02/15/25 06:00 02/15/25 06:00 02/15/25 06:00
I&O
02/14/25 02/15/25 02/16/25
06:59 06:59 06:59
Intake Total 3500 / 3500
Output Total 300 / 300
Balance 3200 / 3200
Review of Systems
-
Unable to obtain full review of systems at this time due to: Dementia
History Source: Patient
Physical Exam
-
General: No Apparent Distress and Appears Chronically Ill
HEENT: Normocephalic and Atraumatic
Respiratory: Negative Wheezes
Cardiac: Regular Rhythm and S1/S2
GI: Soft
Neuro: Awake and Other (Chronic limb contractures with quadriplegia); Negative Oriented
Psych: Calm
Data Reviewed
-
Diagnostic Radiology: Report Reviewed by me, Discussed with Physician and Discussed with Patient
Labs: Labs Reviewed by me, Discussed with Physician and Discussed with Patient
--- NOTE | 2025-02-15 12:20 | CM ---
Initial assessment completed with Ching Fagan RN, patient and son at bedside. Patient is a LTC resident at [facility]. She has MS and is a quadriplegic. She has garbled speech but is verbal (contrary to ER assessment) She also is not on dementia unit
at [facility] (as noted in ER records). She is awake and alert. She is total care. A jailyn is used to transfer. She has to be fed. Diet is pureed with nectar thick liquids. Aspiration precautions. PCP is Dr. Josh Romo. Pharmacy is [facility] in
[place] [facility] ([facility]). Discharge POC: Return to [facility]. Referral placed.
--- NOTE | 2025-02-15 14:57 | PTCARENOTE ---
Pt has remained pleasant and cooperative, VSS, afebrile. NSS continues infusing at 125/hr. Pt is a total feed, poor appetite noted. Pt's son and daughter both updated. Safe environment ongoing. Pt is downgraded to telemetry, portable monitor applied.
--- NOTE | 2025-02-15 16:10 | PTCARENOTE ---
1555 Pt received from ICU via bed.
[2025-02-15 16:17] LABS: Procalcitonin 4.84 ng/ml (0.0-0.25)
[2025-02-15] MEDS: VANCOCIN HCL 500 MG 100 IV (18:57)
[2025-02-15] MEDS: XALATAN OPHTHALMIC SOLUTION 1 DROP BOTH EYES (23:20)
[2025-02-15] MEDS: SINGULAIR 10 MG PO (23:20)
[2025-02-16 03:00] VITALS: BP 127/70
[2025-02-16] MEDS: MAXIPIME 2000 MG IV ×3 (03:34→17:54)
[2025-02-16] MEDS: STERILE WATER FOR INJECTION 10 ML IV ×3 (03:35→17:53)
[2025-02-16] MEDS: VANCOCIN HCL 500 MG 100 IV (05:25)
[2025-02-16 06:00] VITALS: BMI 28.0
[2025-02-16 07:00] VITALS: BP 112/63
[2025-02-16] MEDS: NSS 1000 IV (08:33)
[2025-02-16 08:38] LABS: Hematocrit 32.3 % (37.0-47.0); Hemoglobin 10.6 g/dL (12.0-16.0); Mean Corp Hgb Conc. 32.8 g/dL (33.0-37.0); Mean Corpuscular Volume 77.6 fL (81.0-99.0); Nucleated Red Blood Cells % 0 %; Platelet Count 239 10^3/uL (130-400); Red Cell Dist. Width 16.0 % (11.5-14.5)
[2025-02-16] MEDS: TRUSOPT 2% OPHTHALMIC SOLUTION 1 DROP BOTH EYES (08:39)
[2025-02-16] MEDS: TIMOPTIC 0.25% OPHTHALMIC SOLUTION 1 DROP BOTH EYES (08:39)
[2025-02-16] MEDS: ELIQUIS PO ×2 (08:45→20:33)
[2025-02-16] MEDS: LIPITOR PO (08:45)
[2025-02-16] MEDS: PEPCID PO (08:45)
[2025-02-16] MEDS: LIORESAL PO ×3 (08:45→21:07)
--- NOTE | 2025-02-16 09:01 | W.PN.HOSP.TC ---
Today's Communication/Plan
-
Stop vancomycin
Continue cefepime IV
Follow cultures
Trend temperatures
Assessment / Plan
Assessment / Plan
#Fever
- Question for aspiration pneumonitis/pneumonia.
- High-grade, up to 103 �F at facility, 102 �F x 1 here, has been normal since
- Upon arrival here cultures were obtained and was started on broad-spectrum antibiotics.
- CXR without opacities, UA negative; procalcitonin 4.1; MRSA culture was negative
- Started on broad-spectrum coverage upon arrival, Flagyl and Vanc discontinued
- Will continue with IV cefepime, vancomycin empirically for now
- Follow-up cultures, CBC, temperature curve, respiratory status
- Consider ID consult if fevers recurrent or WBC continues to rise
#Multiple Sclerosis
#Quadriplegia / Chronic Contractures
- Stable. Continue supportive care / offloading / pressure supports / etc.
- Continue baclofen.
#Asthma without Acute Exacerbation
- No SOB, cough or wheezing appreciated.
- Continue Singulair.
- Nebs PRN.
#Glaucoma
- Continue current eye drop regimen.
#H/O DVT
-Likely associated with stasis, remains on Eliquis indefinitely
#Dementia
- Stable. Monitor for any acute agitation / delirium during hospital stay.
Diet: Pur�e
DVT Prophylaxis: Continue Eliquis
Code Status: Full
Anticipated Discharge: > 48 hours
Subjective/Interval History
-
Date of Service: February 16, 2025
Seen and examined at the bedside. No acute events reported overnight. AFVSS this morning. No fevers since early in admission
WBC continues to downtrend, 13.8 this morning. Blood cultures NGTD, MRSA negative
ROS limited by dementia though denies new complaints
Objective Data
-
Labs:
Laboratory Results
02/16/25
08:04
WBC 13.8 H
Hgb 10.6 L
Hct 32.3 L
Plt Count 239
Sodium Pending
Potassium Pending
Chloride Pending
Carbon Dioxide Pending
BUN Pending
Creatinine Pending
Glucose Pending
Calcium Pending
Vital Signs:
Vital Signs
Temp Pulse Resp BP Pulse Ox
98.1 F 70 18 112/63 96
02/16/25 07:00 02/16/25 07:00 02/16/25 07:00 02/16/25 07:00 02/16/25 07:00
I&O
02/15/25 02/16/25 02/17/25
06:59 06:59 05:59
Intake Total 3500 / 3500 2947 / 2947
Output Total 300 / 300 300 / 300
Balance 3200 / 3200 2647 / 2647
Review of Systems
-
Unable to obtain full review of systems at this time due to: Dementia
Physical Exam
-
General: Well Developed, No Apparent Distress and Appears Chronically Ill
HEENT: Normocephalic, Atraumatic, Moist Mucous Membranes and Anicteric
Respiratory: Clear to Auscultation and Non Labored Respirations; Negative Wheezes, Rales, Rhonchi or Accessory Resp Muscle Use
Cardiac: Regular Rhythm and S1/S2; Negative Murmur, Rub or Gallop
GI: Soft, Nontender, Nondistended and Normal Bowel Sounds
Musculoskeletal: No Clubbing, No Cyanosis and No Edema
Skin: Warm and Dry; Negative Rash
Neuro: Awake, Alert, Oriented and Other (Chronic quadriplegia, no other new FND or CN deficits)
Psych: Calm
[2025-02-16 09:03] LABS: Blood Urea Nitrogen 6 mg/dl (7-17); Calcium 8.5 mg/dl (8.4-10.2); Carbon Dioxide 19 mmol/L (22-30); Chloride 114 mmol/L (98-107); Estimated Creatinine Clearance 79 ml/min; Glucose 67 mg/dl (70-99); Potassium 3.6 mmol/L (3.5-5.1); Sodium 139 mmol/L (135-145); eGFR > 60.00
--- NOTE | 2025-02-16 09:04 | PHA.VAN.FU ---
Vancomycin Assessment / Plan
- Assessment
Renal Function: Stable
In the past 24 hrs, patient has been: Afebrile
- Dosing Plan
Continue: 500MG Q12H
- Monitoring Plan
Peak Level: 02/17 @2100
Trough Level: 02/18 @0530
- Follow Up
Pharmacy will continue to follow.
Vancomycin Follow UP
- -
Patient Age: 64
Patient Sex: Female
Vancomycin Day #: 2
Indication: Bacteremia
Requesting Provider: Dr. Hillman
Pertinent Antimicrobial Allergies:
penicillins - hives, tolerates cephalosporins
Height / Weight:
Height 5 ft
Actual Weight 65.091 kg
Pertinent Past Medical History: MS, quadriplegia
- Vital Signs / Lab Results
Temp Pulse Resp BP Pulse Ox
98.1 F 70 18 112/63 96
02/16/25 07:00 02/16/25 07:00 02/16/25 07:00 02/16/25 07:00 02/16/25 07:00
Lab Results - Hematology
02/14/25 02/15/25 02/16/25
22:22 05:27 08:04
WBC 15.0 H 27.9 H 13.8 H
Lab Results - Chemistry
02/14/25 02/15/25 02/16/25
22:22 05:27 08:04
BUN 9 7 6 L
Creatinine 0.5 L 0.4 L 0.4 L
Estimated Creat Clear 78 79
Albumin 3.8 2.6 L
02/14/25
22:22
Lactic Acid 1.5
Microbiology Results
02/14/25 22:22 Blood Culture - Preliminary
Blood/Venous No Growth in 24 hours- Final report to follow
02/14/25 22:22 Blood Culture - Preliminary
Blood/Venous No Growth in 24 hours- Final report to follow
02/15/25 11:45 Nasal Screen MRSA (PCR) - Final
Nose MRSA not detected - performed by PCR methodology.
02/14/25 23:03 Influenza Types A & B (JENNIFER) - Final
Nasal Swab Negative for Influenza A & B, NAAT
Negative results must be combined with clinical observations
and patient history.
Nucleic Acid Amplification test (NAAT)performed on the
[employer] platform.
--- NOTE | 2025-02-16 10:10 | PTCARENOTE ---
For morning med pass, pt stated they will take their medications at this time and that they take their medications in appplesauce. RN crushed medications and mixed them in applesauce per previous nurse's instruction, however, pt started spitting out
meds and refused to take them. RN attempted to explain the importance of the medications, but pt continued to refused medications.
[2025-02-16 11:00] VITALS: BP 127/67
[2025-02-16 15:00] VITALS: BP 138/67
[2025-02-16 19:00] VITALS: BP 138/73
[2025-02-16] MEDS: TIMOPTIC 0.25% OPHTHALMIC SOLUTION BOTH EYES (20:33)
[2025-02-16] MEDS: TRUSOPT 2% OPHTHALMIC SOLUTION BOTH EYES (20:34)
[2025-02-16] MEDS: SINGULAIR PO (21:08)
[2025-02-16] MEDS: XALATAN OPHTHALMIC SOLUTION BOTH EYES (21:08)
[2025-02-16 23:00] VITALS: BP 136/70
[2025-02-17] MEDS: STERILE WATER FOR INJECTION 10 ML IV ×2 (01:31→10:32)
[2025-02-17] MEDS: MAXIPIME 2000 MG IV ×2 (01:31→10:32)
[2025-02-17 03:33] VITALS: BP 132/78
[2025-02-17 06:00] VITALS: BMI 27.1
[2025-02-17 07:16] VITALS: BP 100/55
--- NOTE | 2025-02-17 08:43 | W.PN.HOSP.TC ---
Today's Communication/Plan
-
Transition to levofloxacin at discharge
Discharge back to long-term care when able to except
Assessment / Plan
Assessment / Plan
#Fever
- Question for aspiration pneumonitis/pneumonia.
- High-grade, up to 103 �F at facility, 102 �F x 1 here, has been normal since
- Upon arrival here cultures were obtained and was started on broad-spectrum antibiotics.
- CXR without opacities, UA negative; procalcitonin 4.1; MRSA culture was negative
- Started on broad-spectrum coverage upon arrival, Flagyl and Vanc discontinued
- Will continue with IV cefepime while here
- Transition to PO levofloxacin 750 mg daily to complete 7-day course
#Multiple Sclerosis
#Quadriplegia / Chronic Contractures
- Stable. Continue supportive care / offloading / pressure supports / etc.
- Continue baclofen.
#Asthma without Acute Exacerbation
- No SOB, cough or wheezing appreciated.
- Continue Singulair.
- Nebs PRN.
#Glaucoma
- Continue current eye drop regimen.
#H/O DVT
-Likely associated with stasis, remains on Eliquis indefinitely
#Dementia
- Stable. Monitor for any acute agitation / delirium during hospital stay.
Diet: Pur�e
DVT Prophylaxis: Continue Eliquis
Code Status: Full
Anticipated Discharge: Within 24 hours
Subjective/Interval History
-
Date of Service: February 17, 2025
Seen and examined at the bedside. No acute events reported overnight. AFVSS this morning, remains afebrile
Refusing some of her medications this morning. Denies any complaints, states she just does not want to take pills
Denies dyspnea, fevers or chills, chest pain, GI or urinary issue
Objective Data
-
Labs:
Laboratory Results
02/17/25
06:00
WBC Pending
Hgb Pending
Hct Pending
Plt Count Pending
Sodium Pending
Potassium Pending
Chloride Pending
Carbon Dioxide Pending
BUN Pending
Creatinine Pending
Glucose Pending
Calcium Pending
Vital Signs:
Vital Signs
Temp Pulse Resp BP Pulse Ox
97.7 F 89 16 100/55 97
02/17/25 07:16 02/17/25 07:16 02/17/25 07:16 02/17/25 07:16 02/17/25 07:16
I&O
02/16/25 02/17/25 02/18/25
06:59 05:59 06:59
Intake Total 2947 / 2947 500 / 500
Output Total 300 / 300
Balance 2647 / 2647 500 / 500
Review of Systems
-
Unable to obtain full review of systems at this time due to: Dementia
History Source: Patient
All other systems: Reviewed and negative
Physical Exam
-
General: Well Developed, No Apparent Distress and Appears Chronically Ill
HEENT: Normocephalic, Atraumatic and Moist Mucous Membranes
Respiratory: Clear to Auscultation and Non Labored Respirations; Negative Accessory Resp Muscle Use
Cardiac: Regular Rhythm, S1/S2 and Murmur; Negative Rub or Gallop
GI: Soft, Nontender, Nondistended and Normal Bowel Sounds
Musculoskeletal: No Clubbing, No Cyanosis, No Edema and Other (Chronic contracture)
Skin: Warm and Dry; Negative Rash
Neuro: Awake, Alert, Oriented and Other (Chronic MMS deficits, no FND or CN deficits noted)
Psych: Calm
[2025-02-17] MEDS: LIORESAL 20 MG PO (10:03)
[2025-02-17] MEDS: ELIQUIS 5 MG PO (10:03)
[2025-02-17] MEDS: LIPITOR PO (10:14)
[2025-02-17] MEDS: TRUSOPT 2% OPHTHALMIC SOLUTION BOTH EYES (10:15)
[2025-02-17] MEDS: TIMOPTIC 0.25% OPHTHALMIC SOLUTION BOTH EYES (10:15)
[2025-02-17] MEDS: PEPCID PO (10:15)
[2025-02-17 11:16] VITALS: BP 123/85
--- NOTE | 2025-02-17 11:30 | CM ---
Patient will return to [facility] today
Spoke w/ nurse instrument assembly supervisor, Johana, at [facility], confirmed patient can admit back today
Updated clinicals sent in [facility] [place]
Patient will require ambulance transport, forms are on chart
IMM verbally reviewed, copy provided, copy on chart
[facility]
Report: [phone]

Plan: Return to [facility]
[2025-02-17 11:39] LABS: Hematocrit 38.9 % (37.0-47.0); Hemoglobin 12.0 g/dL (12.0-16.0); Mean Corp Hgb Conc. 30.8 g/dL (33.0-37.0); Mean Corpuscular Volume 81.4 fL (81.0-99.0); Nucleated Red Blood Cells % 0 %; Red Cell Dist. Width 16.3 % (11.5-14.5)
[2025-02-17 11:56] LABS: Blood Urea Nitrogen 8 mg/dl (7-17); Calcium 8.7 mg/dl (8.4-10.2); Carbon Dioxide 15 mmol/L (22-30); Chloride 108 mmol/L (98-107); Estimated Creatinine Clearance 77 ml/min; Glucose 94 mg/dl (70-99); Potassium 3.7 mmol/L (3.5-5.1); Sodium 132 mmol/L (135-145); eGFR > 60.00
[2025-02-17] MEDS: FLUZONE HIGH-DOSE 2025-26 0.5 ML IM (13:29)
[2025-02-17 14:58] VITALS: BP 144/90
--- NOTE | 2025-02-17 15:01 | W.DCSUMMARY ---
Discharge Summary
Discharge Data
Date of Admission: 02/15/25
Date of Discharge: 02/17/25
Total time spent discharging patient (in min): 36
-
Pending Results: No
Hospital Course
Discharging provider: Giovanny Woodward DO
Discharge disposition: [facility]
Primary discharge diagnoses:
Fever
Presumed aspiration pneumonia/pneumonitis
Rhonchi on exam upon arrival
Chronic discharge diagnoses:
Multiple sclerosis C/B quadriplegia
Asthma
Dementia
History of DVT on Eliquis
History of aspiration events
Hospital course:
64-year-old female that presented from her long-term care with high-grade fever of 103 �F. Patient was sent to the ED at [facility] and upon arrival noted to be rhonchorous with significant leukocytosis however x-ray, urinalysis and other imaging
findings were all unremarkable for source of infection. She was started on IV vancomycin, cefepime, Flagyl empirically for broad-spectrum coverage. Initial blood cultures taken prior to antibiotics ultimately were negative after 3 days. MRSA
screen was negative, vancomycin and Flagyl were discontinued and she was continued on IV cefepime while hospitalized. Had no further episodes of fever and her leukocytosis down trended to normal range. Never required supplemental oxygen and her
lung exam quickly improved. She was transitioned to oral levofloxacin 750 mg daily to complete the remainder of a 7-day course of antibiotics. She was evaluated by speech therapy in the hospital who recommended her to continue her baseline pur�ed
diet. She was deemed stable for discharge back to her long-term care facility on 02/17/2025.
Pertinent imaging findings: N/A
Procedures: N/A
Follow-up:
Family doctor within 1 week of discharge
Should have ongoing speech therapy evaluations
Discharge Plan
-
Patient Disposition: Longterm/SNF
Discharge Diagnosis/Procedures: Aspiration pneumonitis/pneumonia
Fever
Leukocytosis
Condition: Fair
Diet: As tolerated
Additional Diets: Pur�ed diet; aspiration precautions
Activity: As tolerated and Other activity
Additional Activity: As prior to admission
Driving Restrictions: No driving
Bathing Restrictions: None
Blood Work: BMP and CBC 1 week after discharge
Instructions: Aspiration pneumonia
Referrals:
Josh Romo DO [Family Provider, Family Practice]
Additional Discharge Medication Instructions: Levofloxacin 750 mg daily for 5 more days after discharge
Prescriptions:
New
levofloxacin 750 mg tablet
750 mg PO DAILY 5 Days Qty: 5 0RF
Continued
latanoprost 0.005 % Drops
1 drp BOTH EYES HS
acetaminophen [Tylenol] 325 mg Tablet
650 mg PO Q4HPRN MDD 3000 mg PRN (Reason: mild pain,fever>100.4)
magnesium hydroxide [Milk of Magnesia] 400 mg/5 mL Suspension
30 ml PO HSPRN PRN (Reason: constipation)
baclofen 10 mg Tablet
20 mg PO TID
bisacodyl 10 mg Suppository
10 mg KS DAILYPRN PRN (Reason: 3 days no bm, mom ineffective)
dorzolamide-timolol 22.3-6.8 mg/mL Drops
1 drp BOTH EYES BID
montelukast 10 mg Tablet
10 mg PO HS
cholecalciferol (vitamin D3) 1,250 mcg (50,000 unit) capsule
1,250 mcg PO QMONTH
Rx Instructions:
on tuesday of the month
ipratropium-albuterol 0.5 mg-3 mg(2.5 mg base)/3 mL Solution For Nebulization
3 ml INHALATION R Q4HPRN PRN (Reason: cough/wheezing)
Eliquis 5 mg Tablet
5 mg PO BID
sennosides-docusate sodium 8.6-50 mg Tablet
1 tab-cap PO DAILY
atorvastatin [Lipitor] 20 mg Tablet
20 mg PO DAILY
famotidine 20 mg Tablet
20 mg PO DAILY
Discharge Orders:
Discharge Patient (As Directed); Ordered 02/17/25
Ordered By: Giovanny Woodward
Discharge Date and Time
Print Language: MALTESE
== END 2025-02-17 16:18 | DRG 177 ==
LOC: 3 WEST ACU 02:14
PROVIDERS: ADMITTING PHYSICIAN Hospitalist; ATTENDING PHYSICIAN Internal Medicine; EMERGENCY PHYSICIAN Student in an Organized Health Care Education/Training Program; FAMILY PHYSICIAN Student in an Organized Health Care Education/Training Program
DX: J69.0 Pneumonitis due to inhalation of food and vomit (principal); R53.2 Functional quadriplegia; G35.D Multiple sclerosis, unspecified; J45.909 Unspecified asthma, uncomplicated; F03.90 Unspecified dementia, unspecified severity, without behavioral disturbance, psychotic disturbance, mood disturbance, and anxiety; Z86.718 Personal history of other venous thrombosis and embolism; H40.9 Unspecified glaucoma; E78.5 Hyperlipidemia, unspecified; N31.9 Neuromuscular dysfunction of bladder, unspecified; Z79.01 Long term (current) use of anticoagulants; Z88.0 Allergy status to penicillin
CPT/HCPCS: 71045; 80048; 80053; 81003; 83605; 84145; 84443; 85025; 85027; 85610; 87040; 87502; 87641; 87811; 90662; 92610; 93005; 96361; 96365; 96375; 99285; G0008

== ENCOUNTER → 2025-02-25 10:12 | Outpatient (REF) | payer MEDICARE, OTHER, SELFPAY ==
[2025-02-25 10:55] LABS: Hematocrit 33.4 % (37.0-47.0); Hemoglobin 10.6 g/dL (12.0-16.0); Mean Corp Hgb Conc. 31.7 g/dL (33.0-37.0); Mean Corpuscular Volume 80.9 fL (81.0-99.0); Platelet Count 283 10^3/uL (130-400); Red Cell Dist. Width 16.6 % (11.5-14.5)
[2025-02-25 11:00] LABS: ALT (SGPT) 14 U/L (0-35); AST (SGOT) 19 U/L (14-36); Albumin 3.1 g/dl (3.5-5.0); Alkaline Phosphatase 67 U/L (38-126); Blood Urea Nitrogen 9 mg/dl (7-17); Calcium 8.9 mg/dl (8.4-10.2); Carbon Dioxide 26 mmol/L (22-30); Chloride 106 mmol/L (98-107); Glucose 81 mg/dl (70-99); Potassium 4.2 mmol/L (3.5-5.1); Sodium 134 mmol/L (135-145); Total Protein 6.2 g/dl (6.3-8.2); eGFR > 60.00
[2025-02-25 13:05] LABS: Nucleated Red Blood Cells % 0 %
== END ==
LOC: OLABN 10:12
PROVIDERS: ATTENDING PHYSICIAN Student in an Organized Health Care Education/Training Program
DX: R05.9 Cough, unspecified (principal); J45.901 Unspecified asthma with (acute) exacerbation
CPT/HCPCS: 36415; 80053; 85025